=== PATIENT | male | born 1935 ===

== ENCOUNTER 2016-03-18 18:19 | Inpatient (IN) | payer OTHER ==
[~2016-03-18] VITALS: Ht 180.3 cm; Wt 102.5 kg
[2016-03-18 20:16] VITALS: BP 156/82
[2016-03-18] MEDS ORDERED: OMEP40CA5 PO (20:47)
[2016-03-18] MEDS ORDERED: OMEG1CAP6 PO (20:47)
[2016-03-18] MEDS ORDERED: TRAM50TA PO (20:47)
[2016-03-18] MEDS ORDERED: ATEN50TA PO (20:47)
[2016-03-18] MEDS ORDERED: LEVO25TA4 PO (20:47)
[2016-03-18] MEDS ORDERED: CARB15DR3 EACHEYE (20:47)
[2016-03-18] MEDS ORDERED: FINA5TAB4 PO (20:47)
[2016-03-18] MEDS ORDERED: PRAV20TA2 PO (20:47)
[2016-03-18] MEDS ORDERED: FURO20TA3 PO (20:47)
[2016-03-18] MEDS ORDERED: CHOL10003 PO (20:47)
[2016-03-18] MEDS ORDERED: TAMS0.4C2 PO (20:47)
[2016-03-18] MEDS ORDERED: FOSI10TA PO (20:47)
[2016-03-18] MEDS ORDERED: GABA-586 PO (20:47)
[2016-03-18] MEDS ORDERED: KETO15CR TP (20:47)
[2016-03-18] MEDS ORDERED: ACET500T68 PO (20:47)
[2016-03-18] MEDS ORDERED: ASPI-482 PO (20:52)
[2016-03-18] MEDS ORDERED: QUIN324C PO (20:52)
[2016-03-18 21:00] VITALS: BP 168/88
[2016-03-18] MEDS ORDERED: DILTIAZEM 125 MG in IV DEXTROSE 5% 100 ML IV PRN (21:00)
[2016-03-18 22:00] VITALS: BP 157/79
[2016-03-18] MEDS ORDERED: ACETAMINOPHEN 500 MG TABLET PO PRN (22:30)
[2016-03-18] MEDS ORDERED: TRAMADOL 50 MG TABLET. PO PRN (22:30)
[2016-03-18] MEDS ORDERED: POLYVINYL ALCOHOL 1.4% OPHTH SOLUTION 15ML BOTTLE. OU PRN (22:30)
--- NOTE | 2016-03-18 22:35 | EKG ---
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
[2016-03-18 23:02] VITALS: BP 164/69
[2016-03-19] VITALS (13 sets, daily range): BP systolic 139–162; BP diastolic 67–82
--- NOTE | 2016-03-19 02:00 | HP ---
ADMIT DATE: 03/18/2016 CHIEF COMPLAINT: Palpitations, chest pain, mental status change. HISTORY OF PRESENT ILLNESS: The patient is a pleasant middle-aged [facility] explained that he was having atrial fibrillation with RVR and he needed the cardiac workup at their facility. He has now been transferred to our facility for continued cardiac workup. PAST MEDICAL HISTORY: Colon cancer, colon resection, prostate cancer, skin cancer, anxiety. ALLERGIES: None. FAMILY HISTORY: Coronary artery disease. SOCIAL HISTORY: Does not drink, smoke or take drugs. He is a . MEDICATIONS: Reviewed, please refer to the MRAD. REVIEW OF SYSTEMS: GENERAL: No history of weight change, weakness or fevers. SKIN: No bruising, hair changes or rashes. EYES: No blurred, double or loss of vision. NOSE AND THROAT: No history of nosebleeds, hoarseness or sore throat. HEART: He complains of chest pain. LUNGS: Denies cough, hemoptysis, wheezing or shortness of breath. GASTROINTESTINAL: Denies changes in appetite, nausea, vomiting, diarrhea or constipation. GENITOURINARY: No history of frequency, urgency, hesitancy or nocturia. NEUROLOGIC: Denies history of numbness, tingling, tremor or weakness. PSYCHIATRIC: No history of panic, anxiety or depression. ENDOCRINE: No history of heat or cold intolerance, polyuria or polydipsia. EXTREMITIES: Denies muscle weakness, joint pain, pain on walking or stiffness. PHYSICAL EXAMINATION: VITAL SIGNS: Temperature afebrile, pulse 104 and irregular, respirations 22, blood pressure 144/67. GENERAL: He is alert, but confused. HEART: Strong S1, S2 with irregular rate of 104 beats per minute. LUNGS: Clear. ABDOMEN: Soft, positive bowel sounds. EXTREMITIES: 1+ edema. SKIN: No rashes. PSYCHIATRIC: He is anxious. VASCULAR: Good capillary refill. ENDOCRINE: No thyromegaly. LYMPHATICS: No cervical nodes. HEMATOPOIETIC: No bruising. LABORATORY DATA: Pending. ASSESSMENT AND PLAN: Atrial fibrillation with rapid ventricular response. The patient has been admitted. We are checking serial enzymes, serial EKGs, cardiac monitoring. IV Cardizem drip has been started. Suspect he might need anticoagulation. Await further cardiac input. I will resume his home meds. Consult Neurology regarding the mental status change. DEJON FINE DO DR: NANCY/pedro JOB#: [id number] / [id number]
--- NOTE | 2016-03-19 03:32 | EKG ---
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
[2016-03-19] MEDS: TAMSULOSIN 0.4 MG CAP.ER.24H. PO SCH (08:33)
[2016-03-19] MEDS: PANTOPRAZOLE 40 MG TABLET. PO SCH (08:33)
[2016-03-19] MEDS: FINASTERIDE 5 MG TABLET PO SCH (08:33)
[2016-03-19] MEDS: LEVOTHYROXINE 25 MCG TABLET. PO SCH (08:34)
[2016-03-19] MEDS: LISINOPRIL 5 MG TABLET. PO SCH (08:35)
[2016-03-19] MEDS: ASPIRIN ENTERIC COATED 81 MG TABLET.DR. PO SCH (08:35)
[2016-03-19] MEDS: GABAPENTIN 300 MG CAPSULE. PO SCH ×2 (08:35→21:37)
[2016-03-19] MEDS: FUROSEMIDE 20 MG TABLET PO SCH (08:36)
[2016-03-19] MEDS: ATENOLOL 50 MG TABLET PO SCH (08:36)
[2016-03-19] MEDS: KETOCONAZOLE 2% TOPICAL CREAM 15GM TUBE. TP SCH ×2 (08:39→21:37)
[2016-03-19] MEDS ORDERED: ENOXAPARIN 40 MG/0.4 ML DISP.SYRIN. SQ SCH (09:00)
--- NOTE | 2016-03-19 10:51 | PDOC2 ---
CARDIAC CONSULT DATE OF CONSULT Date of Consult DATE: 03/19/16 TIME: 10:43 REASON FOR CONSULT Reason for Consult: New onset AFIB with RVR REFERRING PHYSICIAN Referring Physician: Dr. Bustamante SOURCE Source: Chart review, Patient HISTORY OF PRESENT ILLNESS HISTORY OF PRESENT ILLNESS This is a 80 yo male who initially presented to the [facility] with. Upon evaluation, patient was noted to be in AFIB with RVR and was transferred for further evaluation. PAST MEDICAL HISTORY Cardiovascular: HTN GI: Other (colorectal CA) Psych: Anxiety, Depression Musculoskeletal: Osteoarthritis Renal/: Chronic renal insuff, Benign prostatic enlarg., Prostate Ca. Endocrine: Hypothyroidism PAST SURGICAL HISTORY Past Surgical History: Hernia Repair CURRENT MEDICATIONS CURRENT MEDICATIONS Current Medications Medications (Trade) Dose Ordered Sig/Peter Route PRN Reason Start Time Stop Time Status Last Admin Dose Admin Diltiazem HCl/ Dextrose (Cardizem) 125 ml @ 0 mls/hr CONT PRN IV SEE I/O RECORD 03/18/16 21:00 03/19/16 08:32 Enoxaparin Sodium (Lovenox 40mg Syringe) 40 mg Q24H SQ 03/19/16 09:00 03/19/16 09:42 Aspirin (Ecotrin) 81 mg DAILY PO 03/19/16 09:00 03/19/16 08:35 Atenolol (Tenormin) 50 mg DAILY PO 03/19/16 09:00 03/19/16 08:36 Finasteride (Proscar) 5 mg DAILY PO 03/19/16 09:00 03/19/16 08:33 Furosemide (Lasix) 20 mg DAILY PO 03/19/16 09:00 03/19/16 08:36 Gabapentin (Neurontin) 300 mg BID PO 03/19/16 09:00 03/19/16 08:35 Ketoconazole (Nizoral 2% Topical) 1 rhys BID TP 03/19/16 09:00 03/19/16 08:39 Levothyroxine Sodium (Synthroid) 15 mcg DAILY07 PO 03/19/16 07:00 03/19/16 08:34 Tamsulosin HCl (Flomax) 0.4 mg DAILY PO 03/19/16 09:00 03/19/16 08:33 Lisinopril (Prinivil) 5 mg DAILY PO 03/19/16 09:00 03/19/16 08:35 Pantoprazole Sodium (Protonix) 40 mg DAILYAC PO 03/19/16 07:30 03/19/16 08:33 ALLERGIES ALLERGIES: Coded Allergies: No Known Drug Allergies (Unverified , 03/18/16) ROS Review of System 14 point ROS conducted with pertinent positives noted above in HPI VITALS VITALS Vital Signs Date Time Temp Pulse Resp B/P Pulse Ox O2 Delivery O2 Flow Rate FiO2 03/19/16 08:36 87 157/69 03/19/16 07:30 98.5 18 Room Air 98.5 03/19/16 03:02 96 LABS Lab: Laboratory Tests Test 03/18/16 21:45 03/19/16 03:30 Troponin I Quantitative 0.059ng/mL (0.000-0.055) 0.056ng/mL (0.000-0.055) STEPHAN VAZQUEZ APRN Mar 19, 2016 10:51
--- NOTE | 2016-03-19 11:13 | PDOC ---
PROGRESS NOTES Chief Complaint Chief Complaint cc: palpitation A/P Afib with RVR SOB Hypothyroidism Plan IV Cardizem gtt, control HR to < 100 Heparin gtt per ACS protocol cardiology consult 3 sets of troponin echo TSH home medications reviwed, IV Lasix monitor electrolyte CBC/BMP Follow cardiology recommendation History of Present Illness History of Present Illness no fever no chest pain Vitals Vitals Vital Signs Date Time Temp Pulse Resp B/P Pulse Ox O2 Delivery O2 Flow Rate FiO2 03/19/16 08:36 87 157/69 03/19/16 07:40 Room Air 03/19/16 07:30 98.5 18 98.5 03/19/16 03:02 96 Physical Exam General: Alert, Oriented X3 Heart: Normal S1, Normal S2 Lungs: Clear Abdomen: Normal bowel sounds, Soft Extremities: Other (edema) Labs LABS Laboratory Tests Test 03/18/16 21:45 03/19/16 03:30 Troponin I Quantitative 0.059ng/mL (0.000-0.055) 0.056ng/mL (0.000-0.055) Thyroid Stimulating Hormone (TSH) 4.570uIU/mL (0.358-3.74) Comment Review of Relevant I have reviewed the following items juany (where applicable) has been applied. Labs Laboratory Tests Test 03/18/16 21:45 03/19/16 03:30 Troponin I Quantitative 0.059ng/mL (0.000-0.055) 0.056ng/mL (0.000-0.055) Thyroid Stimulating Hormone (TSH) 4.570uIU/mL (0.358-3.74) Laboratory Tests Test 03/18/16 21:45 03/19/16 03:30 Troponin I Quantitative 0.059ng/mL (0.000-0.055) 0.056ng/mL (0.000-0.055) Thyroid Stimulating Hormone (TSH) 4.570uIU/mL (0.358-3.74) Medications Current Medications Diltiazem HCl/ Dextrose (Cardizem) 125 ml @ 0 mls/hr CONT PRN IV SEE I/O RECORD Last administered on 03/19/16t 08:32; Start 03/18/16 at 21:00 Enoxaparin Sodium (Lovenox 40mg Syringe) 40 mg Q24H SQ Last administered on 09:42; Start 03/19/16 at 09:00 Acetaminophen (Tylenol) 500 mg PRN Q8HRS PRN PO PAIN; Start 03/18/16 at 22:30 Aspirin (Ecotrin) 81 mg DAILY PO Last administered on 03/19/16 08:35; Start at 09:00 Atenolol (Tenormin) 50 mg DAILY PO Last administered on 03/19/16 08:36; Start 03/19/16 at 09:00 Finasteride (Proscar) 5 mg DAILY PO Last administered on 03/19/16 08:33; Start 03/19/16 at 09:00 Furosemide (Lasix) 20 mg DAILY PO Last administered on 03/19/16 08:36; Start 03/19/16 at 09:00 Gabapentin (Neurontin) 300 mg BID PO Last administered on 03/19/16 08:35; Start 03/19/16 at 09:00 Ketoconazole (Nizoral 2% Topical) 1 mary BID TP Last administered on 03/19/16 08:39; Start 03/19/16 at 09:00 Levothyroxine Sodium (Synthroid) 15 mcg DAILY07 PO Last administered on 08:34; Start 03/19/16 at 07:00 Quinine Sulfate (Qualaquin) 324 mg HS PO ; Start 03/19/16 at 21:00 Tamsulosin HCl (Flomax) 0.4 mg DAILY PO Last administered on 03/19/16 08:33; Start 03/19/16 at 09:00 Tramadol HCl (Ultram) 50 mg PRN Q8HRS PRN PO PAIN; Start 03/18/16 at 22:30 Artificial Tears (Artificial Tears) 1 drop PRN QID PRN OU dry eyes; Start at 22:30 Lisinopril (Prinivil) 5 mg DAILY PO Last administered on 03/19/16 08:35; Start 03/19/16 at 09:00 Pantoprazole Sodium (Protonix) 40 mg DAILYAC PO Last administered on 03/19/16 08:33; Start 03/19/16 at 07:30 Atorvastatin Calcium (Lipitor) 5 mg QHS PO ; Start 03/19/16 at 21:00 Active Scripts Active Reported Quinine Sulfate 324 Mg Capsule 324 Mg PO Aspir 81 (Aspirin) 81 Mg Tablet.dr 1 Tab PO DAILY Atenolol 50 Mg Tablet 50 Mg PO DAILY Tramadol Hcl 50 Mg Tablet 50 Mg PO PRN Q8HRS PRN Tamsulosin Hcl 0.4 Mg Cap.er.24h 0.4 Mg PO DAILY Pravastatin Sodium 20 Mg Tablet 1 Tab PO QHS Omeprazole 40 Mg Capsule.dr 40 Mg PO DAILY Levothyroxine Sodium 25 Mcg Tablet 15 Mcg PO DAILYAC Ketoconazole 15 Gm Cream..g. 1 Mary TP BID Gabapentin 300 Mg Capsule 300 Mg PO BID Furosemide 20 Mg Tablet 20 Mg PO DAILY Fosinopril Sodium 10 Mg Tablet 5 Mg PO DAILY Fish Oil 1,000 Mg Capsule ([place]-3 Fatty Acids/Fish Oil) 1 Each Capsule 1 Each PO BID Finasteride 5 Mg Tablet 5 Mg PO DAILY Vitamin D3 (Cholecalciferol (Vitamin D3)) 1,000 Unit Tablet 3 Tab PO DAILY Refresh Optive Eye Drops (Carboxymethylcellulos/Glycerin) 15 Ml Drops 1 Drop EACHEYE PRN QID PRN Acetaminophen 500 Mg Tablet 2 Tab PO PRN Q8HRS PRN Vitals/I & O Vital Sign - Last 24 Hours 03/18/16 03/18/16 03/18/16 03/18/16 20:16 20:16 21:00 22:00 Temp 97.7 97.7 97.7 97.7 Pulse 112 112 Resp 20 20 B/P 156/82 156/82 168/88 157/79 Pulse Ox 96 96 O2 Delivery Room Air Room Air 03/18/16 03/18/16 03/19/16 03/19/16 23:02 23:52 00:00 01:00 Temp 98.2 98.2 Pulse 89 Resp 20 B/P 164/69 162/67 153/82 Pulse Ox 98 O2 Delivery Room Air Room Air 03/19/16 03/19/16 03/19/16 03/19/16 02:00 03:02 04:00 05:00 Temp 98.1 98.1 Pulse 97 Resp 18 B/P 158/74 143/74 160/75 155/77 Pulse Ox 96 O2 Delivery Room Air 03/19/16 03/19/16 03/19/16 03/19/16 06:00 07:30 07:40 08:35 Temp 98.5 98.5 Pulse 87 87 Resp 18 B/P 139/76 157/69 157/69 O2 Delivery Room Air Room Air 03/19/16 08:36 Pulse 87 B/P 157/69 HEIDI RIDLEY MD Mar 19, 2016 11:13
--- NOTE | 2016-03-19 13:30 | RAD ---
Clinical indications: Mental status changes. Comparison: None available. Technique: Noncontrast axial cross sectional scanning of the head was performed. PQRS Compliance Statement: One or more of the following individualized dose reduction techniques were utilized for this examination: 1. Automated exposure control 2. Adjustment of the mA and/or kV according to patient size 3. Use of iterative reconstruction technique Findings: No acute intracranial hemorrhage or midline shift or mass-effect or hydrocephalus or extra-axial fluid collection is seen. Mild periventricular white matter hypodensity is seen consistent with chronic small vessel ischemic disease in this age group. No skull fracture or pneumocephalus is seen. No opacification of the mastoid sinuses or the paranasal sinuses is seen. Impression: No acute intracranial hemorrhage is seen. Mild chronic small vessel ischemic disease of the white matter.
--- NOTE | 2016-03-19 14:04 | PDOC2 ---
NEUROLOGY CONSULT Date of Admission Date of Admission DATE: 03/19/16 TIME: 13:44 Reason for Consult Reason for Consult: IMPRESSION: Mental status changes, improved. Dizziness, resolved. New onset AFib with RVR. Chest pain Hx of SVT HTN Colon cancer Prostate cancer Skin cancer Alcohol drinking RECOMMENDATIONS/PLAN: HCT, performed, no acute findings. Lab: see orders. UDS, UA, Vit B12 pending. Cardiology consulted. Treat medical diseases. HISTORY OF THE PRESENT ILLNESS: 80-y-old male patient with above medical diseases and drinks alcohol from time to time. He had episode of SVT with HR > 200/min in the past. He drank a quarter of high concentration alcohol in the evening of 03/17, then he had symptoms of chest pain, palpitation, difficult breathing and mental status changes as visual and auditory hallucination, but his mental status retained to normal shortly. No acute cranial nerve, sensory of motor deficits. PAST MEDICAL HISTORY: Please see above. PAST SURGERY HISTORY: No major surgery recently. ALLERGY: Unknown MEDICATIONS: Refer to MAR FAMILY HISTORY: CAD SOCIAL HISTORY: Denies smoking and illicit drug use. He drinks a quarter of high concentration alcohol from time to time. REVIEW OF SYSTEMS: Constitutional: No malnutrition, weight loss, cachexia. Head: No recent traumatic brain or head injury. Skin: No edema, or rash. Ear: No infection, tinnitus. Eyes: No vision loss or color blindness. Nose: No bleeding or purulent discharges. Hearing: Significant hearing decrease. Neck: No recent injury. Cardiac: New onset AFib this time. HTN. Pulmonary: No COPD. GI: No GI ulcer, GI bleeding. Urinary/genital: Prostate cancer. Endocrinologic: No cousin face, craniofacial dysmorphism, polydactyly, goiter. Skeletomuscular: Skin cancer. Neurological: see HP. Psychiatric: Alcohol Otherwise, not [id number] review of systems. PHYSICAL EXAMINATION: General appearance is in subacute distress. HEENT: Normocephalic and nontraumatic. Eyes, nose, ears, and throat are unremarkable. Neck is supple. No lymphadenopathy. No crepitus. Cardiovascular: S1, S2, seemed irregular rate and rhythm. Pulmonary: Clear to auscultation bilaterally. Abdomen: Bowel sounds are positive. Abdomen is soft, nontender, and nondistended. Extremities: No rash, lesions, or edema. No restriction of range of motion NEUROLOGICAL EXAMINATION: Awake. Oriented to time, place and person. PERRL. EOMI. CN: no focal findings. Muscle tone: within normal. Muscle strength: 5- DTR: 2 Plantar reflex: Flexor response bilaterally Gait: not examined in bed. Sensory exam: no abnormal findings. No acute cerebellar signs elicited. F-T-N test not accurate. Current Medications Current Medications Current Medications Diltiazem HCl/ Dextrose (Cardizem) 125 ml @ 0 mls/hr CONT PRN IV SEE I/O RECORD Last administered on 03/19/16 08:32; Start 03/18/16 at 21:00 Enoxaparin Sodium (Lovenox 40mg Syringe) 40 mg Q24H SQ Last administered on 09:42; Start 03/19/16 at 09:00 Acetaminophen (Tylenol) 500 mg PRN Q8HRS PRN PO PAIN; Start 03/18/16 at 22:30 Aspirin (Ecotrin) 81 mg DAILY PO Last administered on 03/19/16 08:35; Start at 09:00 Atenolol (Tenormin) 50 mg DAILY PO Last administered on 03/19/16 08:36; Start 03/19/16 at 09:00 Finasteride (Proscar) 5 mg DAILY PO Last administered on 03/19/16 08:33; Start 03/19/16 at 09:00 Furosemide (Lasix) 20 mg DAILY PO Last administered on 03/19/16 08:36; Start 03/19/16 at 09:00 Gabapentin (Neurontin) 300 mg BID PO Last administered on 03/19/16 08:35; Start 03/19/16 at 09:00 Ketoconazole (Nizoral 2% Topical) 1 mary BID TP Last administered on 03/19/16 08:39; Start 03/19/16 at 09:00 Levothyroxine Sodium (Synthroid) 15 mcg DAILY07 PO Last administered on 08:34; Start 03/19/16 at 07:00 Quinine Sulfate (Qualaquin) 324 mg HS PO ; Start 03/19/16 at 21:00 Tamsulosin HCl (Flomax) 0.4 mg DAILY PO Last administered on 03/19/16 08:33; Start 03/19/16 at 09:00 Tramadol HCl (Ultram) 50 mg PRN Q8HRS PRN PO PAIN; Start 03/18/16 at 22:30 Artificial Tears (Artificial Tears) 1 drop PRN QID PRN OU dry eyes; Start at 22:30 Lisinopril (Prinivil) 5 mg DAILY PO Last administered on 03/19/16 08:35; Start 03/19/16 at 09:00 Pantoprazole Sodium (Protonix) 40 mg DAILYAC PO Last administered on 03/19/16 08:33; Start 03/19/16 at 07:30 Atorvastatin Calcium (Lipitor) 5 mg QHS PO ; Start 03/19/16 at 21:00 Thiamine HCl (Vitamin B-1) 100 mg DAILY PO ; Start 03/19/16 at 15:00; Status UNV Active Scripts Active Reported Quinine Sulfate 324 Mg Capsule 324 Mg PO Aspir 81 (Aspirin) 81 Mg Tablet.dr 1 Tab PO DAILY Atenolol 50 Mg Tablet 50 Mg PO DAILY Tramadol Hcl 50 Mg Tablet 50 Mg PO PRN Q8HRS PRN Tamsulosin Hcl 0.4 Mg Cap.er.24h 0.4 Mg PO DAILY Pravastatin Sodium 20 Mg Tablet 1 Tab PO QHS Omeprazole 40 Mg Capsule.dr 40 Mg PO DAILY Levothyroxine Sodium 25 Mcg Tablet 15 Mcg PO DAILYAC Ketoconazole 15 Gm Cream..g. 1 Mary TP BID Gabapentin 300 Mg Capsule 300 Mg PO BID Furosemide 20 Mg Tablet 20 Mg PO DAILY Fosinopril Sodium 10 Mg Tablet 5 Mg PO DAILY Fish Oil 1,000 Mg Capsule ([place]-3 Fatty Acids/Fish Oil) 1 Each Capsule 1 Each PO BID Finasteride 5 Mg Tablet 5 Mg PO DAILY Vitamin D3 (Cholecalciferol (Vitamin D3)) 1,000 Unit Tablet 3 Tab PO DAILY Refresh Optive Eye Drops (Carboxymethylcellulos/Glycerin) 15 Ml Drops 1 Drop EACHEYE PRN QID PRN Acetaminophen 500 Mg Tablet 2 Tab PO PRN Q8HRS PRN Allergies Allergies: Coded Allergies: No Known Drug Allergies (Unverified , 03/18/16) Vitals VITALS Vital Signs Date Time Temp Pulse Resp B/P Pulse Ox O2 Delivery O2 Flow Rate FiO2 03/19/16 11:00 98.0 98 20 140/71 Room Air 99.0 98.0 03/19/16 10:00 96 Labs Labs Laboratory Tests Test 03/18/16 21:45 03/19/16 03:30 Troponin I Quantitative 0.059ng/mL (0.000-0.055) 0.056ng/mL (0.000-0.055) Thyroid Stimulating Hormone (TSH) 4.570uIU/mL (0.358-3.74) Laboratory Tests Test 03/18/16 21:45 03/19/16 03:30 Troponin I Quantitative 0.059ng/mL (0.000-0.055) 0.056ng/mL (0.000-0.055) Thyroid Stimulating Hormone (TSH) 4.570uIU/mL (0.358-3.74) HUDSON DALE MD Mar 19, 2016 14:04
[2016-03-19] MEDS: DILTIAZEM HCL 120 MG CAP.ER.24H PO SCH (14:57)
[2016-03-19] MEDS: THIAMINE 100 MG TABLET. PO SCH (14:59)
--- NOTE | 2016-03-19 17:07 | CARD ---
APPROVED REPORT EXAM: Two-dimensional and M-mode echocardiogram with Doppler and color Doppler. Other Information Quality : Good Rhythm : Atrial Fibrillation INDICATION Atrial Fibrillation RVR RISK FACTORS Hypertension 2D DIMENSIONS RVDd2.4 (2.9-3.5cm)Left Atrium(2D)5.2 (1.6-4.0cm) IVSd1.2 (0.7-1.1cm)Aortic Root(2D)3.5 (2.0-3.7cm) LVDd5.4 (3.9-5.9cm)LVOT Diameter2.2 (1.8-2.4cm) PWd1.1 (0.7-1.1cm)LVDs3.7 (2.5-4.0cm) FS (%) 30.8 %SV82.4 ml LVEF(%)50.0 (>50%) Aortic Valve AoV Peak Enrique.127.6cm/sAoV VTI20.6cm AO Peak GR.6.5mmHgLVOT VTI 20.51cm AO Mean GR.3mmHg Mitral Valve MV E Nuflttyp075.0cm/sMV DECEL [id number] TDI Medial E' P. V7.72cm/sE/Medial E'14.8 Tricuspid Valve TR P. Uajvqgde186hw/sRAP [id number] TR Peak Gr.[id number] LEFT VENTRICLE The left ventricle is normal size. There is mild concentric left ventricular hypertrophy. The left ve ntricular systolic function is normal and the ejection fraction is within normal range. The Ejection Fraction is 50%. There is normal LV segmental wall motion. Unable to assess left ventricular diastoli c function due to atrial fibrillation. RIGHT VENTRICLE The right ventricle is normal size. There is normal right ventricular wall thickness. The right ventr icular systolic function is impaired ATRIA The left atrium size is normal. The right atrium size is normal. The interatrial septum is intact wit h no evidence for an atrial septal defect or patent foramen ovale as noted on 2-D or Doppler imaging. AORTIC VALVE The aortic valve is mildly sclerotic. Doppler and Color Flow revealed no significant aortic regurgita tion. There is no significant aortic valvular stenosis. MITRAL VALVE The mitral valve leaflets are thickened. There is no evidence of mitral valve prolapse. There is no m itral valve stenosis. Doppler and Color Flow revealed trace mitral regurgitation. TRICUSPID VALVE Doppler and Color Flow revealed trace tricuspid regurgitation. The pulmonary artery systolic pressure is estimated at 39 mmHg. There is mild pulmonary hypertension. PULMONIC VALVE The pulmonic valve is not well visualized. Doppler and Color Flow revealed no pulmonic valvular regur gitation. There is no pulmonic valvular stenosis. GREAT VESSELS The aortic root is normal in size. The ascending aorta is normal in size. The pulmonary artery is nor mal. The IVC is normal in size and collapses >50% with inspiration. PERICARDIAL EFFUSION There is a small pericardial effusion. Critical Notification Critical Value: No <Conclusion> Unable to assess left ventricular diastolic function due to atrial fibrillation. There is mild concentric left ventricular hypertrophy. The left ventricular systolic function is normal and the ejection fraction is within normal range. The Ejection Fraction is 50%. The right ventricular systolic function is impaired The left atrium size is normal. The right atrium size is normal. The aortic valve is mildly sclerotic. Doppler and Color Flow revealed trace mitral regurgitation. Doppler and Color Flow revealed trace tricuspid regurgitation. The pulmonary artery systolic pressure is estimated at 39 mmHg. There is mild pulmonary hypertension. The pulmonic valve is not well visualized. There is a small pericardial effusion.
[2016-03-19] MEDS ORDERED: HEPARIN for IV BOLUS 10,000 UNIT/10 ML VIAL. IV PRN (17:45)
[2016-03-19] MEDS ORDERED: ANTI-COAG MONITOR BY PHARMACY. MC PRN (18:00)
[2016-03-19] MEDS ORDERED: HEPARIN for IV BOLUS 10,000 UNIT/10 ML VIAL. IVP ONE (18:00)
[2016-03-19] MEDS: HEPARIN 25,000UTS/500ML PREMIX 500 ML IV PRN (18:47)
--- NOTE | 2016-03-19 19:07 | PDOC2 ---
CONSULT Date of Consult Date of Consult DATE: 03/19/16 TIME: 19:02 Reason for Consult Reason for Consult: A. nasreen with RVR History of Present Illness Reason for Visit: This patient is a 80-year-old gentleman with a history of hypertension. He denies any previous cardiac problems although he states that he has had some issues with supraventricular tachycardias. The patient is usually cared for at the level with [place]. He went to the emergency room at the [facility] and was found to be in atrial fibrillation with a rapid ventricular response following that the patient was transferred here for further care. After he arrived here he was initiated on IV Cardizem. At the time that I saw the patient he is in atrial fibrillation with a controlled ventricular response in the 80s. Patient denies any chest pains, denies any palpitations, no nausea no vomiting and no loss of consciousness. Past Medical History Cardiovascular: HTN, Other (SVT) GI: Other (colorectal CA) Psych: Anxiety, Depression Musculoskeletal: Osteoarthritis Renal/: Chronic renal insuff, Benign prostatic enlarg., Prostate Ca. Endocrine: Hypothyroidism Past Surgical History Past Surgical History: Hernia Repair Current Medications Current Medications Current Medications Diltiazem HCl/ Dextrose (Cardizem) 125 ml @ 0 mls/hr CONT PRN IV SEE I/O RECORD Last administered on 03/19/16 08:32; Start 03/18/16 at 21:00; Stop at 21:00 Enoxaparin Sodium (Lovenox 40mg Syringe) 40 mg Q24H SQ Last administered on 09:42; Start 03/19/16 at 09:00 Acetaminophen (Tylenol) 500 mg PRN Q8HRS PRN PO PAIN; Start 03/18/16 at 22:30 Aspirin (Ecotrin) 81 mg DAILY PO Last administered on 03/19/16 08:35; Start at 09:00 Atenolol (Tenormin) 50 mg DAILY PO Last administered on 03/19/16 08:36; Start 03/19/16 at 09:00 Finasteride (Proscar) 5 mg DAILY PO Last administered on 03/19/16 08:33; Start 03/19/16 at 09:00 Furosemide (Lasix) 20 mg DAILY PO Last administered on 03/19/16 08:36; Start 03/19/16 at 09:00 Gabapentin (Neurontin) 300 mg BID PO Last administered on 03/19/16 08:35; Start 03/19/16 at 09:00 Ketoconazole (Nizoral 2% Topical) 1 mary BID TP Last administered on 03/19/16 08:39; Start 03/19/16 at 09:00 Levothyroxine Sodium (Synthroid) 15 mcg DAILY07 PO Last administered on 08:34; Start 03/19/16 at 07:00 Quinine Sulfate (Qualaquin) 324 mg HS PO ; Start 03/19/16 at 21:00 Tamsulosin HCl (Flomax) 0.4 mg DAILY PO Last administered on 03/19/16 08:33; Start 03/19/16 at 09:00 Tramadol HCl (Ultram) 50 mg PRN Q8HRS PRN PO PAIN; Start 03/18/16 at 22:30 Artificial Tears (Artificial Tears) 1 drop PRN QID PRN OU dry eyes; Start at 22:30 Lisinopril (Prinivil) 5 mg DAILY PO Last administered on 03/19/16 08:35; Start 03/19/16 at 09:00 Pantoprazole Sodium (Protonix) 40 mg DAILYAC PO Last administered on 03/19/16 08:33; Start 03/19/16 at 07:30 Atorvastatin Calcium (Lipitor) 5 mg QHS PO ; Start 03/19/16 at 21:00 Thiamine HCl (Vitamin B-1) 100 mg DAILY PO Last administered on 03/19/16 14:59 ; Start 03/19/16 at 15:00 Diltiazem HCl 120 mg 120 mg DAILY PO Last administered on 03/19/16 14:57; Start 03/19/16 at 15:00 Heparin Sodium/ Dextrose 500 ml @ 0 mls/hr CONT PRN IV SEE I/O RECORD Last administered on 03/19/16 18:47; Start 03/19/16 at 17:45 Heparin Sodium (Porcine) 2,600 unit PRN Q6HRS PRN IV FOR UFH LEVEL LESS THAN 0.2; Start 03/19/16 at 17:45 Heparin Sodium (Porcine) 5,000 unit 1X ONCE IVP Last administered on 2/10/ 17at 18:41; Start 03/19/16 at 18:00; Stop 03/19/16 at 18:01; Status DC Info (Anti-Coagulation Monitoring By Pharmacy) 1 each PRN DAILY PRN MC SEE COMMENTS; Start 03/19/16 at 18:00 Active Scripts Active Reported Quinine Sulfate 324 Mg Capsule 324 Mg PO Aspir 81 (Aspirin) 81 Mg Tablet.dr 1 Tab PO DAILY Atenolol 50 Mg Tablet 50 Mg PO DAILY Tramadol Hcl 50 Mg Tablet 50 Mg PO PRN Q8HRS PRN Tamsulosin Hcl 0.4 Mg Cap.er.24h 0.4 Mg PO DAILY Pravastatin Sodium 20 Mg Tablet 1 Tab PO QHS Omeprazole 40 Mg Capsule.dr 40 Mg PO DAILY Levothyroxine Sodium 25 Mcg Tablet 15 Mcg PO DAILYAC Ketoconazole 15 Gm Cream..g. 1 Mary TP BID Gabapentin 300 Mg Capsule 300 Mg PO BID Furosemide 20 Mg Tablet 20 Mg PO DAILY Fosinopril Sodium 10 Mg Tablet 5 Mg PO DAILY Fish Oil 1,000 Mg Capsule ([place]-3 Fatty Acids/Fish Oil) 1 Each Capsule 1 Each PO BID Finasteride 5 Mg Tablet 5 Mg PO DAILY Vitamin D3 (Cholecalciferol (Vitamin D3)) 1,000 Unit Tablet 3 Tab PO DAILY Refresh Optive Eye Drops (Carboxymethylcellulos/Glycerin) 15 Ml Drops 1 Drop EACHEYE PRN QID PRN Acetaminophen 500 Mg Tablet 2 Tab PO PRN Q8HRS PRN Allergies Allergies: Coded Allergies: No Known Drug Allergies (Unverified , 03/18/16) Physical Exam Physical Exam The patient was not in acute distress at the time of the examination. HEENT pupils are reactive. Oral mucosa well-hydrated. Neck is supple no JVD. Lungs were clear. Heart irregularly irregular, S1-S2, no rubs no clicks. Abdomen is soft bowel sounds are present. Extremities 1-2+ edema. Vitals VITALS Vital Signs Date Time Temp Pulse Resp B/P Pulse Ox O2 Delivery O2 Flow Rate FiO2 03/19/16 15:00 98.0 98 18 144/71 98.0 03/19/16 11:00 Room Air 99.0 03/19/16 10:00 96 Labs Labs Laboratory Tests Test 03/18/16 21:45 03/19/16 03:30 Troponin I Quantitative 0.059ng/mL (0.000-0.055) 0.056ng/mL (0.000-0.055) Thyroid Stimulating Hormone (TSH) 4.570uIU/mL (0.358-3.74) Laboratory Tests Test 03/18/16 21:45 03/19/16 03:30 Troponin I Quantitative 0.059ng/mL (0.000-0.055) 0.056ng/mL (0.000-0.055) Thyroid Stimulating Hormone (TSH) 4.570uIU/mL (0.358-3.74) Assessment/Plan Assessment/Plan This patient comes in with atrial fibrillation with a rapid ventricular response that was controlled with IV Cardizem at the present time he has slowed down and he is having a rate in the 80s although at times he is having pauses. The IV Cardizem was stopped and he was started on by mouth Cardizem. I agree with this approach and will get an echocardiogram to evaluate the patient's present left ventricular function and chamber sizes. Thank you very much for asking me to participate in the care of this patient BREEZY TORRES MD Mar 19, 2016 19:07
[2016-03-19] MEDS: quiNINE 324 MG CAPSULE. PO SCH (21:37)
[2016-03-19] MEDS: ATORVASTATIN CALCIUM 10 MG TABLET. PO SCH (21:37)
[2016-03-20 03:35] VITALS: BP 141/68
[2016-03-20 06:24] LABS: CREATININE 0.9 mg/dL (0.7-1.3); GFR 81.6
[2016-03-20 07:00] VITALS: BP 160/80
[2016-03-20] MEDS: KETOCONAZOLE 2% TOPICAL CREAM 15GM TUBE. TP SCH ×2 (09:00→21:00)
[2016-03-20] MEDS: TAMSULOSIN 0.4 MG CAP.ER.24H. PO SCH (10:34)
[2016-03-20] MEDS: GABAPENTIN 300 MG CAPSULE. PO SCH ×2 (10:34→21:24)
[2016-03-20] MEDS: DILTIAZEM HCL 120 MG CAP.ER.24H PO SCH (10:35)
[2016-03-20] MEDS: THIAMINE 100 MG TABLET. PO SCH (10:35)
[2016-03-20] MEDS: FUROSEMIDE 20 MG TABLET PO SCH (10:35)
[2016-03-20] MEDS: LEVOTHYROXINE 25 MCG TABLET. PO SCH (10:36)
[2016-03-20] MEDS: ASPIRIN ENTERIC COATED 81 MG TABLET.DR. PO SCH (10:36)
[2016-03-20] MEDS: PANTOPRAZOLE 40 MG TABLET. PO SCH (10:38)
[2016-03-20] MEDS: LISINOPRIL 5 MG TABLET. PO SCH (10:38)
[2016-03-20] MEDS: FINASTERIDE 5 MG TABLET PO SCH (10:38)
[2016-03-20] MEDS: ATENOLOL 50 MG TABLET PO SCH (10:39)
[2016-03-20 11:00] VITALS: BP 158/82
--- NOTE | 2016-03-20 12:48 | PDOC ---
PROGRESS NOTES Chief Complaint Chief Complaint cc: palpitation A/P Afib with RVR SOB Hypothyroidism Plan IV Cardizem gtt, control HR to < 100 Heparin gtt per ACS protocol , Coumadin today stop atenlol cardiology following echo normal ef home medications reviwed, IV Lasix monitor electrolyte CBC/BMP Follow cardiology recommendation History of Present Illness History of Present Illness no fever no chest pain Vitals Vitals Vital Signs Date Time Temp Pulse Resp B/P Pulse Ox O2 Delivery O2 Flow Rate FiO2 03/20/16 11:00 97.9 93 18 158/82 94 Room Air 97.9 03/19/16 11:00 99.0 Physical Exam General: Alert, Oriented X3 Heart: Normal S1, Normal S2 Lungs: Clear Abdomen: Normal bowel sounds, Soft Extremities: Other (edema) Labs LABS Laboratory Tests Test 03/20/16 05:10 Heparin Anti-Xa Act, Unfractionated < 0.10IU/mL (0.30-0.70) Creatinine 0.9mg/dL (0.7-1.3) Estimated GFR (Cockcroft-Gault) 81.6 Comment Review of Relevant I have reviewed the following items juany (where applicable) has been applied. Labs Laboratory Tests Test 03/18/16 21:45 03/19/16 03:30 03/20/16 05:10 Troponin I Quantitative 0.059ng/mL (0.000-0.055) 0.056ng/mL (0.000-0.055) Vitamin B12 Level 466pg/mL (211-946) Thyroid Stimulating Hormone (TSH) 4.570uIU/mL (0.358-3.74) Heparin Anti-Xa Act, Unfractionated < 0.10IU/mL (0.30-0.70) Creatinine 0.9mg/dL (0.7-1.3) Estimated GFR (Cockcroft-Gault) 81.6 Laboratory Tests Test 03/20/16 05:10 Heparin Anti-Xa Act, Unfractionated < 0.10IU/mL (0.30-0.70) Creatinine 0.9mg/dL (0.7-1.3) Estimated GFR (Cockcroft-Gault) 81.6 Medications Current Medications Diltiazem HCl/ Dextrose (Cardizem) 125 ml @ 0 mls/hr CONT PRN IV SEE I/O RECORD Last administered on 03/19/16 08:32; Start 03/18/16 at 21:00; Stop at 21:00; Status DC Enoxaparin Sodium (Lovenox 40mg Syringe) 40 mg Q24H SQ Last administered on 09:42; Start 03/19/16 at 09:00; Stop 03/20/16 at 07:31; Status DC Acetaminophen (Tylenol) 500 mg PRN Q8HRS PRN PO PAIN; Start 03/18/16 at 22:30 Aspirin (Ecotrin) 81 mg DAILY PO Last administered on 03/20/16 10:36; Start at 09:00 Atenolol (Tenormin) 50 mg DAILY PO Last administered on 03/20/16 10:39; Start 03/19/16 at 09:00 Finasteride (Proscar) 5 mg DAILY PO Last administered on 03/20/16 10:38; Start 03/19/16 at 09:00 Furosemide (Lasix) 20 mg DAILY PO Last administered on 03/20/16 10:35; Start 03/19/16 at 09:00 Gabapentin (Neurontin) 300 mg BID PO Last administered on 03/20/16 10:34; Start 03/19/16 at 09:00 Ketoconazole (Nizoral 2% Topical) 1 mary BID TP Last administered on 03/19/16 21:37; Start 03/19/16 at 09:00 Levothyroxine Sodium (Synthroid) 15 mcg DAILY07 PO Last administered on 10:36; Start 03/19/16 at 07:00 Quinine Sulfate (Qualaquin) 324 mg HS PO Last administered on 03/19/16 21:37; Start 03/19/16 at 21:00 Tamsulosin HCl (Flomax) 0.4 mg DAILY PO Last administered on 03/20/16 10:34; Start 03/19/16 at 09:00 Tramadol HCl (Ultram) 50 mg PRN Q8HRS PRN PO PAIN; Start 03/18/16 at 22:30 Artificial Tears (Artificial Tears) 1 drop PRN QID PRN OU dry eyes; Start at 22:30 Lisinopril (Prinivil) 5 mg DAILY PO Last administered on 03/20/16 10:38; Start 03/19/16 at 09:00 Pantoprazole Sodium (Protonix) 40 mg DAILYAC PO Last administered on 03/20/16 10:38; Start 03/19/16 at 07:30 Atorvastatin Calcium (Lipitor) 5 mg QHS PO Last administered on 03/19/16 21:37 ; Start 03/19/16 at 21:00 Thiamine HCl (Vitamin B-1) 100 mg DAILY PO Last administered on 03/20/16 10:35 ; Start 03/19/16 at 15:00 Diltiazem HCl 120 mg 120 mg DAILY PO Last administered on 03/20/16 10:35; Start 03/19/16 at 15:00 Heparin Sodium/ Dextrose 500 ml @ 0 mls/hr CONT PRN IV SEE I/O RECORD Last administered on 03/19/16 18:47; Start 03/19/16 at 17:45 Heparin Sodium (Porcine) 2,600 unit PRN Q6HRS PRN IV FOR UFH LEVEL LESS THAN 0.2; Start 03/19/16 at 17:45 Heparin Sodium (Porcine) 5,000 unit 1X ONCE IVP Last administered on 18:41; Start 03/19/16 at 18:00; Stop 03/19/16 at 18:01; Status DC Info (Anti-Coagulation Monitoring By Pharmacy) 1 each PRN DAILY PRN MC SEE COMMENTS; Start 03/19/16 at 18:00 Active Scripts Active Reported Quinine Sulfate 324 Mg Capsule 324 Mg PO Aspir 81 (Aspirin) 81 Mg Tablet.dr 1 Tab PO DAILY Atenolol 50 Mg Tablet 50 Mg PO DAILY Tramadol Hcl 50 Mg Tablet 50 Mg PO PRN Q8HRS PRN Tamsulosin Hcl 0.4 Mg Cap.er.24h 0.4 Mg PO DAILY Pravastatin Sodium 20 Mg Tablet 1 Tab PO QHS Omeprazole 40 Mg Capsule.dr 40 Mg PO DAILY Levothyroxine Sodium 25 Mcg Tablet 15 Mcg PO DAILYAC Ketoconazole 15 Gm Cream..g. 1 Mary TP BID Gabapentin 300 Mg Capsule 300 Mg PO BID Furosemide 20 Mg Tablet 20 Mg PO DAILY Fosinopril Sodium 10 Mg Tablet 5 Mg PO DAILY Fish Oil 1,000 Mg Capsule ([place]-3 Fatty Acids/Fish Oil) 1 Each Capsule 1 Each PO BID Finasteride 5 Mg Tablet 5 Mg PO DAILY Vitamin D3 (Cholecalciferol (Vitamin D3)) 1,000 Unit Tablet 3 Tab PO DAILY Refresh Optive Eye Drops (Carboxymethylcellulos/Glycerin) 15 Ml Drops 1 Drop EACHEYE PRN QID PRN Acetaminophen 500 Mg Tablet 2 Tab PO PRN Q8HRS PRN Vitals/I & O Vital Sign - Last 24 Hours 03/19/16 03/19/16 03/19/16 03/19/16 14:57 15:00 19:35 20:00 Temp 98.0 97.6 98.0 97.6 Pulse 68 98 89 Resp 18 21 B/P 107/53 144/71 139/75 Pulse Ox 96 O2 Delivery Room Air Room Air 03/19/16 03/20/16 03/20/16 03/20/16 23:20 03:35 07:00 10:35 Temp 98.2 98.3 98.0 98.2 98.3 98.0 Pulse 72 63 91 89 Resp 22 16 18 B/P 147/71 141/68 160/80 158/82 Pulse Ox 97 97 96 O2 Delivery Room Air Room Air Room Air 03/20/16 03/20/16 03/20/16 10:38 10:39 11:00 Temp 97.9 97.9 Pulse 92 92 93 Resp 18 B/P 158/82 158/82 158/82 Pulse Ox 94 O2 Delivery Room Air Intake and Output 03/19/16 03/19/16 03/20/16 15:00 23:00 07:00 Intake Total 240 ml 240 ml Balance 240 ml 240 ml HEIDI RIDLEY MD Mar 20, 2016 12:48
--- NOTE | 2016-03-20 14:01 | PDOC ---
PROGRESS NOTES Subjective Subjective Patient is in atrial fibrillation with a controlled ventricular response. He is feeling much better. No dyspnea or chest pains at this time. The echocardiogram was done and it showed: Unable to assess left ventricular diastolic function due to atrial fibrillation. There is mild concentric left ventricular hypertrophy. The left ventricular systolic function is normal and the ejection fraction is within normal range. The Ejection Fraction is 50%. The right ventricular systolic function is impaired The left atrium size is normal. The right atrium size is normal. The aortic valve is mildly sclerotic. Doppler and Color Flow revealed trace mitral regurgitation. Doppler and Color Flow revealed trace tricuspid regurgitation. The pulmonary artery systolic pressure is estimated at 39 mmHg. There is mild pulmonary hypertension. The pulmonic valve is not well visualized. There is a small pericardial effusion. Objective Objective Vital Signs Date Time Temp Pulse Resp B/P Pulse Ox O2 Delivery O2 Flow Rate FiO2 03/20/16 11:00 97.9 93 18 158/82 94 Room Air 97.9 03/19/16 11:00 99.0 Intake and Output 03/20/16 07:00 Intake Total 480 ml Balance 480 ml Intake Oral 480 ml # Voids 7 Physical Exam Physical Exam No significant changes in cardiac exam Assessment Assessment Patient appears to be doing better at this time. Continue with IV heparin. Start warfarin 10 mg by mouth today Comment Review of Relevant I have reviewed the following items juany (where applicable) has been applied. Labs Laboratory Tests Test 03/18/16 21:45 03/19/16 03:30 03/20/16 05:10 Troponin I Quantitative 0.059ng/mL (0.000-0.055) 0.056ng/mL (0.000-0.055) Vitamin B12 Level 466pg/mL (211-946) Thyroid Stimulating Hormone (TSH) 4.570uIU/mL (0.358-3.74) Heparin Anti-Xa Act, Unfractionated < 0.10IU/mL (0.30-0.70) Creatinine 0.9mg/dL (0.7-1.3) Estimated GFR (Cockcroft-Gault) 81.6 Laboratory Tests Test 03/20/16 05:10 Heparin Anti-Xa Act, Unfractionated < 0.10IU/mL (0.30-0.70) Creatinine 0.9mg/dL (0.7-1.3) Estimated GFR (Cockcroft-Gault) 81.6 Medications Current Medications Diltiazem HCl/ Dextrose (Cardizem) 125 ml @ 0 mls/hr CONT PRN IV SEE I/O RECORD Last administered on 03/19/16 08:32; Start 03/18/16 at 21:00; Stop at 21:00; Status DC Enoxaparin Sodium (Lovenox 40mg Syringe) 40 mg Q24H SQ Last administered on 09:42; Start 03/19/16 at 09:00; Stop 03/20/16 at 07:31; Status DC Acetaminophen (Tylenol) 500 mg PRN Q8HRS PRN PO PAIN; Start 03/18/16 at 22:30 Aspirin (Ecotrin) 81 mg DAILY PO Last administered on 03/20/16 10:36; Start at 09:00 Atenolol (Tenormin) 50 mg DAILY PO Last administered on 03/20/16 10:39; Start 03/19/16 at 09:00; Stop 03/20/16 at 13:23; Status DC Finasteride (Proscar) 5 mg DAILY PO Last administered on 03/20/16 10:38; Start 03/19/16 at 09:00 Furosemide (Lasix) 20 mg DAILY PO Last administered on 03/20/16 10:35; Start 03/19/16 at 09:00 Gabapentin (Neurontin) 300 mg BID PO Last administered on 03/20/16 10:34; Start 03/19/16 at 09:00 Ketoconazole (Nizoral 2% Topical) 1 mary BID TP Last administered on 03/19/16 21:37; Start 03/19/16 at 09:00 Levothyroxine Sodium (Synthroid) 15 mcg DAILY07 PO Last administered on 10:36; Start 03/19/16 at 07:00 Quinine Sulfate (Qualaquin) 324 mg HS PO Last administered on 03/19/16 21:37; Start 03/19/16 at 21:00 Tamsulosin HCl (Flomax) 0.4 mg DAILY PO Last administered on 03/20/16 10:34; Start 03/19/16 at 09:00 Tramadol HCl (Ultram) 50 mg PRN Q8HRS PRN PO PAIN; Start 03/18/16 at 22:30 Artificial Tears (Artificial Tears) 1 drop PRN QID PRN OU dry eyes; Start at 22:30 Lisinopril (Prinivil) 5 mg DAILY PO Last administered on 03/20/16 10:38; Start 03/19/16 at 09:00 Pantoprazole Sodium (Protonix) 40 mg DAILYAC PO Last administered on 03/20/16 10:38; Start 03/19/16 at 07:30 Atorvastatin Calcium (Lipitor) 5 mg QHS PO Last administered on 03/19/16 21:37 ; Start 03/19/16 at 21:00 Thiamine HCl (Vitamin B-1) 100 mg DAILY PO Last administered on 03/20/16 10:35 ; Start 03/19/16 at 15:00 Diltiazem HCl 120 mg 120 mg DAILY PO Last administered on 03/20/16 10:35; Start 03/19/16 at 15:00 Heparin Sodium/ Dextrose 500 ml @ 0 mls/hr CONT PRN IV SEE I/O RECORD Last administered on 03/19/16 18:47; Start 03/19/16 at 17:45 Heparin Sodium (Porcine) 2,600 unit PRN Q6HRS PRN IV FOR UFH LEVEL LESS THAN 0.2; Start 03/19/16 at 17:45 Heparin Sodium (Porcine) 5,000 unit 1X ONCE IVP Last administered on 18:41; Start 03/19/16 at 18:00; Stop 03/19/16 at 18:01; Status DC Info (Anti-Coagulation Monitoring By Pharmacy) 1 each PRN DAILY PRN SEE COMMENTS; Start 03/19/16 at 18:00 Active Scripts Active Reported Quinine Sulfate 324 Mg Capsule 324 Mg PO Aspir 81 (Aspirin) 81 Mg Tablet.dr 1 Tab PO DAILY Atenolol 50 Mg Tablet 50 Mg PO DAILY Tramadol Hcl 50 Mg Tablet 50 Mg PO PRN Q8HRS PRN Tamsulosin Hcl 0.4 Mg Cap.er.24h 0.4 Mg PO DAILY Pravastatin Sodium 20 Mg Tablet 1 Tab PO QHS Omeprazole 40 Mg Capsule.dr 40 Mg PO DAILY Levothyroxine Sodium 25 Mcg Tablet 15 Mcg PO DAILYAC Ketoconazole 15 Gm Cream..g. 1 Mary TP BID Gabapentin 300 Mg Capsule 300 Mg PO BID Furosemide 20 Mg Tablet 20 Mg PO DAILY Fosinopril Sodium 10 Mg Tablet 5 Mg PO DAILY Fish Oil 1,000 Mg Capsule ([place]-3 Fatty Acids/Fish Oil) 1 Each Capsule 1 Each PO BID Finasteride 5 Mg Tablet 5 Mg PO DAILY Vitamin D3 (Cholecalciferol (Vitamin D3)) 1,000 Unit Tablet 3 Tab PO DAILY Refresh Optive Eye Drops (Carboxymethylcellulos/Glycerin) 15 Ml Drops 1 Drop EACHEYE PRN QID PRN Acetaminophen 500 Mg Tablet 2 Tab PO PRN Q8HRS PRN Vitals/I & O Vital Sign - Last 24 Hours 03/19/16 03/19/16 03/19/16 03/19/16 14:57 15:00 19:35 20:00 Temp 98.0 97.6 98.0 97.6 Pulse 68 98 89 Resp 18 21 B/P 107/53 144/71 139/75 Pulse Ox 96 O2 Delivery Room Air Room Air 03/19/16 03/20/16 03/20/16 03/20/16 23:20 03:35 07:00 10:35 Temp 98.2 98.3 98.0 98.2 98.3 98.0 Pulse 72 63 91 89 Resp 22 16 18 B/P 147/71 141/68 160/80 158/82 Pulse Ox 97 97 96 O2 Delivery Room Air Room Air Room Air 03/20/16 03/20/16 03/20/16 10:38 10:39 11:00 Temp 97.9 97.9 Pulse 92 92 93 Resp 18 B/P 158/82 158/82 158/82 Pulse Ox 94 O2 Delivery Room Air Intake and Output 03/19/16 03/19/16 03/20/16 15:00 23:00 07:00 Intake Total 240 ml 240 ml Balance 240 ml 240 ml BREEZY TORRES MD Mar 20, 2016 14:01
[2016-03-20 15:00] VITALS: BP 119/71
[2016-03-20 18:03] LABS: INR 1.1 (0.8-1.1); PROTHROMBIN TIME PATIENT 13.9 SEC (11.7-14.0)
--- NOTE | 2016-03-20 18:57 | PDOC ---
PROGRESS NOTES Assessment Metabolic encephalopathy, alcohol intoxication New onset AFib with RVR. Chest pain Hx of SVT HTN Colon cancer Prostate cancer Skin cancer Plan Continue present supportive care Note that heparin has been started Subjective No complaints, he denies pain Objective Vital Signs Date Time Temp Pulse Resp B/P Pulse Ox O2 Delivery O2 Flow Rate FiO2 03/20/16 15:00 98.1 60 18 119/71 93 Room Air 98.1 03/19/16 11:00 99.0 Intake and Output 03/20/16 07:00 Intake Total 480 ml Balance 480 ml Intake Oral 480 ml # Voids 7 PHYSICAL EXAM Alert. Oriented to time (one day off on the date), place and person. PERRL. EOMI. CN: no focal findings. Muscle tone: normal. Muscle strength: 5/5 DTR: 2+ Plantar reflex: Flexor Gait: not examined in bed. Sensory exam: no abnormal findings. No cerebellar signs elicited. Review of Relevant I have reviewed the following items juany (where applicable) has been applied. Labs Laboratory Tests Test 03/18/16 21:45 03/19/16 03:30 03/20/16 05:10 03/20/16 16:50 Troponin I Quantitative 0.059ng/mL (0.000-0.055) 0.056ng/mL (0.000-0.055) Vitamin B12 Level 466pg/mL (211-946) Thyroid Stimulating Hormone (TSH) 4.570uIU/mL (0.358-3.74) Heparin Anti-Xa Act, Unfractionated < 0.10IU/mL (0.30-0.70) Creatinine 0.9mg/dL (0.7-1.3) Estimated GFR (Cockcroft-Gault) 81.6 Prothrombin Time 13.9SEC (11.7-14.0) Prothromb Time International Ratio 1.1 (0.8-1.1) Laboratory Tests Test 03/20/16 05:10 03/20/16 16:50 Heparin Anti-Xa Act, Unfractionated < 0.10IU/mL (0.30-0.70) Creatinine 0.9mg/dL (0.7-1.3) Estimated GFR (Cockcroft-Gault) 81.6 Prothrombin Time 13.9SEC (11.7-14.0) Prothromb Time International Ratio 1.1 (0.8-1.1) Medications Current Medications Diltiazem HCl/ Dextrose (Cardizem) 125 ml @ 0 mls/hr CONT PRN IV SEE I/O RECORD Last administered on 03/19/16 08:32; Start 03/18/16 at 21:00; Stop at 21:00; Status DC Enoxaparin Sodium (Lovenox 40mg Syringe) 40 mg Q24H SQ Last administered on 09:42; Start 03/19/16 at 09:00; Stop 03/20/16 at 07:31; Status DC Acetaminophen (Tylenol) 500 mg PRN Q8HRS PRN PO PAIN; Start 03/18/16 at 22:30 Aspirin (Ecotrin) 81 mg DAILY PO Last administered on 03/20/16 10:36; Start at 09:00 Atenolol (Tenormin) 50 mg DAILY PO Last administered on 03/20/16 10:39; Start 03/19/16 at 09:00; Stop 03/20/16 at 13:23; Status DC Finasteride (Proscar) 5 mg DAILY PO Last administered on 03/20/16 10:38; Start 03/19/16 at 09:00 Furosemide (Lasix) 20 mg DAILY PO Last administered on 03/20/16 10:35; Start 03/19/16 at 09:00 Gabapentin (Neurontin) 300 mg BID PO Last administered on 03/20/16 10:34; Start 03/19/16 at 09:00 Ketoconazole (Nizoral 2% Topical) 1 mary BID TP Last administered on 03/19/16 21:37; Start 03/19/16 at 09:00 Levothyroxine Sodium (Synthroid) 15 mcg DAILY07 PO Last administered on 10:36; Start 03/19/16 at 07:00 Quinine Sulfate (Qualaquin) 324 mg HS PO Last administered on 03/19/16 21:37; Start 03/19/16 at 21:00 Tamsulosin HCl (Flomax) 0.4 mg DAILY PO Last administered on 03/20/16 10:34; Start 03/19/16 at 09:00 Tramadol HCl (Ultram) 50 mg PRN Q8HRS PRN PO PAIN; Start 03/18/16 at 22:30 Artificial Tears (Artificial Tears) 1 drop PRN QID PRN OU dry eyes; Start at 22:30 Lisinopril (Prinivil) 5 mg DAILY PO Last administered on 03/20/16 10:38; Start 03/19/16 at 09:00 Pantoprazole Sodium (Protonix) 40 mg DAILYAC PO Last administered on 03/20/16 10:38; Start 03/19/16 at 07:30 Atorvastatin Calcium (Lipitor) 5 mg QHS PO Last administered on 03/19/16 21:37 ; Start 03/19/16 at 21:00 Thiamine HCl (Vitamin B-1) 100 mg DAILY PO Last administered on 03/20/16 10:35 ; Start 03/19/16 at 15:00 Diltiazem HCl 120 mg 120 mg DAILY PO Last administered on 03/20/16 10:35; Start 03/19/16 at 15:00 Heparin Sodium/ Dextrose 500 ml @ 0 mls/hr CONT PRN IV SEE I/O RECORD Last administered on 03/19/16 18:47; Start 03/19/16 at 17:45 Heparin Sodium (Porcine) 2,600 unit PRN Q6HRS PRN IV FOR UFH LEVEL LESS THAN 0.2 Last administered on 03/20/16 16:56; Start 03/19/16 at 17:45 Heparin Sodium (Porcine) 5,000 unit 1X ONCE IVP Last administered on 18:41; Start 03/19/16 at 18:00; Stop 03/19/16 at 18:01; Status DC Info (Anti-Coagulation Monitoring By Pharmacy) 1 each PRN DAILY PRN MC SEE COMMENTS; Start 03/19/16 at 18:00 Warfarin Sodium (Coumadin) 10 mg DAILY16 PO ; Start 03/20/16 at 18:30 Warfarin Sodium (Coumadin Per Physician) 1 each PRN DAILY PRN MC SEE COMMENTS; Start 03/20/16 at 18:30 Active Scripts Active Reported Quinine Sulfate 324 Mg Capsule 324 Mg PO Aspir 81 (Aspirin) 81 Mg Tablet.dr 1 Tab PO DAILY Atenolol 50 Mg Tablet 50 Mg PO DAILY Tramadol Hcl 50 Mg Tablet 50 Mg PO PRN Q8HRS PRN Tamsulosin Hcl 0.4 Mg Cap.er.24h 0.4 Mg PO DAILY Pravastatin Sodium 20 Mg Tablet 1 Tab PO QHS Omeprazole 40 Mg Capsule.dr 40 Mg PO DAILY Levothyroxine Sodium 25 Mcg Tablet 15 Mcg PO DAILYAC Ketoconazole 15 Gm Cream..g. 1 Mary TP BID Gabapentin 300 Mg Capsule 300 Mg PO BID Furosemide 20 Mg Tablet 20 Mg PO DAILY Fosinopril Sodium 10 Mg Tablet 5 Mg PO DAILY Fish Oil 1,000 Mg Capsule ([place]-3 Fatty Acids/Fish Oil) 1 Each Capsule 1 Each PO BID Finasteride 5 Mg Tablet 5 Mg PO DAILY Vitamin D3 (Cholecalciferol (Vitamin D3)) 1,000 Unit Tablet 3 Tab PO DAILY Refresh Optive Eye Drops (Carboxymethylcellulos/Glycerin) 15 Ml Drops 1 Drop EACHEYE PRN QID PRN Acetaminophen 500 Mg Tablet 2 Tab PO PRN Q8HRS PRN Vitals/I & O Vital Sign - Last 24 Hours 03/19/16 03/19/16 03/19/16 03/20/16 19:35 20:00 23:20 03:35 Temp 97.6 98.2 98.3 97.6 98.2 98.3 Pulse 89 72 63 Resp 21 22 16 B/P 139/75 147/71 141/68 Pulse Ox 96 97 97 O2 Delivery Room Air Room Air Room Air Room Air 03/20/16 03/20/16 03/20/16 03/20/16 07:00 08:00 10:35 10:38 Temp 98.0 98.0 Pulse 91 89 92 Resp 18 B/P 160/80 158/82 158/82 Pulse Ox 96 O2 Delivery Room Air Room Air 03/20/16 03/20/16 03/20/16 10:39 11:00 15:00 Temp 97.9 98.1 97.9 98.1 Pulse 92 93 60 Resp 18 18 B/P 158/82 158/82 119/71 Pulse Ox 94 93 O2 Delivery Room Air Room Air Intake and Output 03/19/16 03/19/16 03/20/16 15:00 23:00 07:00 Intake Total 240 ml 240 ml Balance 240 ml 240 ml DOMINICK HANNAH MD Mar 20, 2016 18:57
[2016-03-20 19:23] VITALS: BP 128/60
[2016-03-20] MEDS: HEPARIN 25,000UTS/500ML PREMIX 500 ML IV PRN (21:23)
[2016-03-20] MEDS: WARFARIN 10 MG TABLET. PO SCH (21:24)
[2016-03-20] MEDS: quiNINE 324 MG CAPSULE. PO SCH (21:24)
[2016-03-20] MEDS: ATORVASTATIN CALCIUM 10 MG TABLET. PO SCH (21:24)
[2016-03-20 23:27] VITALS: BP 140/72
[2016-03-21 02:04] VITALS: BP 129/74
[2016-03-21] MEDS: LEVOTHYROXINE 25 MCG TABLET. PO SCH (06:22)
[2016-03-21 07:59] LABS: INR 1.1 (0.8-1.1); PROTHROMBIN TIME PATIENT 13.8 SEC (11.7-14.0)
[2016-03-21] MEDS: KETOCONAZOLE 2% TOPICAL CREAM 15GM TUBE. TP SCH ×2 (09:00→20:58)
[2016-03-21] MEDS: TAMSULOSIN 0.4 MG CAP.ER.24H. PO SCH (10:44)
[2016-03-21] MEDS: FINASTERIDE 5 MG TABLET PO SCH (10:44)
[2016-03-21] MEDS: THIAMINE 100 MG TABLET. PO SCH (10:44)
[2016-03-21] MEDS: ASPIRIN ENTERIC COATED 81 MG TABLET.DR. PO SCH (10:46)
[2016-03-21] MEDS: GABAPENTIN 300 MG CAPSULE. PO SCH ×2 (10:46→20:58)
[2016-03-21] MEDS: FUROSEMIDE 20 MG TABLET PO SCH (10:46)
[2016-03-21] MEDS: LISINOPRIL 5 MG TABLET. PO SCH (10:46)
[2016-03-21] MEDS: PANTOPRAZOLE 40 MG TABLET. PO SCH (10:46)
[2016-03-21] MEDS: DILTIAZEM HCL 120 MG CAP.ER.24H PO SCH (10:47)
[2016-03-21 11:00] VITALS: BP 147/76
--- NOTE | 2016-03-21 11:47 | PDOC ---
PROGRESS NOTES Chief Complaint Chief Complaint cc: palpitation A/P Afib with RVR SOB Hypothyroidism Plan IV Cardizem gtt, control HR to < 100 Heparin gtt per [facility] protocol , Coumadin , inr not therapeutic stop Atenol cardiology following echo normal ef home medications reviwed, IV Lasix monitor electrolyte CBC/BMP Follow cardiology recommendation History of Present Illness History of Present Illness no fever no chest pain Vitals Vitals Vital Signs Date Time Temp Pulse Resp B/P Pulse Ox O2 Delivery O2 Flow Rate FiO2 03/21/16 10:47 76 144/84 03/21/16 02:04 98.4 16 98 Room Air 98.4 Physical Exam General: Alert, Oriented X3 Heart: Normal S1, Normal S2 Lungs: Clear Abdomen: Normal bowel sounds, Soft Extremities: Other (edema) Labs LABS Laboratory Tests Test 03/20/16 16:50 03/21/16 05:00 Prothrombin Time 13.9SEC (11.7-14.0) 13.8SEC (11.7-14.0) Prothromb Time International Ratio 1.1 (0.8-1.1) 1.1 (0.8-1.1) Heparin Anti-Xa Act, Unfractionated 0.15IU/mL (0.30-0.70) Comment Review of Relevant I have reviewed the following items juany (where applicable) has been applied. Labs Laboratory Tests Test 03/20/16 05:10 03/20/16 16:50 03/21/16 05:00 Heparin Anti-Xa Act, Unfractionated < 0.10IU/mL (0.30-0.70) 0.15IU/mL (0.30-0.70) Creatinine 0.9mg/dL (0.7-1.3) Estimated GFR (Cockcroft-Gault) 81.6 Prothrombin Time 13.9SEC (11.7-14.0) 13.8SEC (11.7-14.0) Prothromb Time International Ratio 1.1 (0.8-1.1) 1.1 (0.8-1.1) Laboratory Tests Test 03/20/16 16:50 03/21/16 05:00 Prothrombin Time 13.9SEC (11.7-14.0) 13.8SEC (11.7-14.0) Prothromb Time International Ratio 1.1 (0.8-1.1) 1.1 (0.8-1.1) Heparin Anti-Xa Act, Unfractionated 0.15IU/mL (0.30-0.70) Medications Current Medications Diltiazem HCl/ Dextrose (Cardizem) 125 ml @ 0 mls/hr CONT PRN IV SEE I/O RECORD Last administered on 03/19/16 08:32; Start 03/18/16 at 21:00; Stop at 21:00; Status DC Enoxaparin Sodium (Lovenox 40mg Syringe) 40 mg Q24H SQ Last administered on 09:42; Start 03/19/16 at 09:00; Stop 03/20/16 at 07:31; Status DC Acetaminophen (Tylenol) 500 mg PRN Q8HRS PRN PO PAIN; Start 03/18/16 at 22:30 Aspirin (Ecotrin) 81 mg DAILY PO Last administered on 03/21/16 10:46; Start at 09:00 Atenolol (Tenormin) 50 mg DAILY PO Last administered on 03/20/16 10:39; Start 03/19/16 at 09:00; Stop 03/20/16 at 13:23; Status DC Finasteride (Proscar) 5 mg DAILY PO Last administered on 03/21/16 10:44; Start 03/19/16 at 09:00 Furosemide (Lasix) 20 mg DAILY PO Last administered on 03/21/16 10:46; Start 03/19/16 at 09:00 Gabapentin (Neurontin) 300 mg BID PO Last administered on 03/21/16 10:46; Start 03/19/16 at 09:00 Ketoconazole (Nizoral 2% Topical) 1 mary BID TP Last administered on 03/19/16 21:37; Start 03/19/16 at 09:00 Levothyroxine Sodium (Synthroid) 15 mcg DAILY07 PO Last administered on 06:22; Start 03/19/16 at 07:00 Quinine Sulfate (Qualaquin) 324 mg HS PO Last administered on 03/20/16 21:24; Start 03/19/16 at 21:00 Tamsulosin HCl (Flomax) 0.4 mg DAILY PO Last administered on 03/21/16 10:44; Start 03/19/16 at 09:00 Tramadol HCl (Ultram) 50 mg PRN Q8HRS PRN PO PAIN; Start 03/18/16 at 22:30 Artificial Tears (Artificial Tears) 1 drop PRN QID PRN OU dry eyes; Start at 22:30 Lisinopril (Prinivil) 5 mg DAILY PO Last administered on 03/21/16 10:46; Start 03/19/16 at 09:00 Pantoprazole Sodium (Protonix) 40 mg DAILYAC PO Last administered on 03/21/16 10:46; Start 03/19/16 at 07:30 Atorvastatin Calcium (Lipitor) 5 mg QHS PO Last administered on 03/20/16 21:24 ; Start 03/19/16 at 21:00 Thiamine HCl (Vitamin B-1) 100 mg DAILY PO Last administered on 03/21/16 10:44 ; Start 03/19/16 at 15:00 Diltiazem HCl 120 mg 120 mg DAILY PO Last administered on 03/21/16 10:47; Start 03/19/16 at 15:00 Heparin Sodium/ Dextrose 500 ml @ 0 mls/hr CONT PRN IV SEE I/O RECORD Last administered on 03/20/16 21:23; Start 03/19/16 at 17:45 Heparin Sodium (Porcine) 2,600 unit PRN Q6HRS PRN IV FOR UFH LEVEL LESS THAN 0.2 Last administered on 03/20/16 16:56; Start 03/19/16 at 17:45 Heparin Sodium (Porcine) 5,000 unit 1X ONCE IVP Last administered on 18:41; Start 03/19/16 at 18:00; Stop 03/19/16 at 18:01; Status DC Info (Anti-Coagulation Monitoring By Pharmacy) 1 each PRN DAILY PRN MC SEE COMMENTS; Start 03/19/16 at 18:00 Warfarin Sodium (Coumadin) 10 mg DAILY16 PO Last administered on 03/20/16 21: 24; Start 03/20/16 at 18:30 Warfarin Sodium (Coumadin Per Physician) 1 each PRN DAILY PRN MC SEE COMMENTS; Start 03/20/16 at 18:30 Active Scripts Active Reported Quinine Sulfate 324 Mg Capsule 324 Mg PO Aspir 81 (Aspirin) 81 Mg Tablet.dr 1 Tab PO DAILY Atenolol 50 Mg Tablet 50 Mg PO DAILY Tramadol Hcl 50 Mg Tablet 50 Mg PO PRN Q8HRS PRN Tamsulosin Hcl 0.4 Mg Cap.er.24h 0.4 Mg PO DAILY Pravastatin Sodium 20 Mg Tablet 1 Tab PO QHS Omeprazole 40 Mg Capsule.dr 40 Mg PO DAILY Levothyroxine Sodium 25 Mcg Tablet 15 Mcg PO DAILYAC Ketoconazole 15 Gm Cream..g. 1 Mary TP BID Gabapentin 300 Mg Capsule 300 Mg PO BID Furosemide 20 Mg Tablet 20 Mg PO DAILY Fosinopril Sodium 10 Mg Tablet 5 Mg PO DAILY Fish Oil 1,000 Mg Capsule ([place]-3 Fatty Acids/Fish Oil) 1 Each Capsule 1 Each PO BID Finasteride 5 Mg Tablet 5 Mg PO DAILY Vitamin D3 (Cholecalciferol (Vitamin D3)) 1,000 Unit Tablet 3 Tab PO DAILY Refresh Optive Eye Drops (Carboxymethylcellulos/Glycerin) 15 Ml Drops 1 Drop EACHEYE PRN QID PRN Acetaminophen 500 Mg Tablet 2 Tab PO PRN Q8HRS PRN Vitals/I & O Vital Sign - Last 24 Hours 03/20/16 03/20/16 03/20/16 03/20/16 15:00 19:23 20:00 23:27 Temp 98.1 98.8 98.5 98.1 98.8 98.5 Pulse 60 70 74 Resp 18 18 18 B/P 119/71 128/60 140/72 Pulse Ox 93 96 96 O2 Delivery Room Air Room Air Room Air Room Air 03/21/16 03/21/16 03/21/16 02:04 10:46 10:47 Temp 98.4 98.4 Pulse 64 76 76 Resp 16 B/P 129/74 144/84 144/84 Pulse Ox 98 O2 Delivery Room Air Intake and Output 03/20/16 03/20/16 03/21/16 15:00 23:00 07:00 Intake Total 1274 ml 240 ml Output Total 1450 ml 1000 ml Balance -176 ml -760 ml HEIDI RIDLEY MD Mar 21, 2016 11:47
--- NOTE | 2016-03-21 13:06 | PDOC ---
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 He is in atrial fibrillation with a controlled ventricular response. He is asymptomatic and is anxious to go home. Dr. 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 He could l go home on Coumadin and Dr. Daley will manage his INR. DEX SHEPPARD MD Mar 21, 2016 13:06
[2016-03-21 15:00] VITALS: BP 114/69
[2016-03-21] MEDS: WARFARIN 10 MG TABLET. PO SCH (16:35)
[2016-03-21] MEDS: HEPARIN 25,000UTS/500ML PREMIX 500 ML IV PRN (18:42)
[2016-03-21 19:34] VITALS: BP 137/76
[2016-03-21] MEDS: quiNINE 324 MG CAPSULE. PO SCH (20:58)
[2016-03-21] MEDS: ATORVASTATIN CALCIUM 10 MG TABLET. PO SCH (20:58)
[2016-03-21 23:33] VITALS: BP 143/81
[2016-03-22 02:57] VITALS: BP 137/75
[2016-03-22] MEDS: LEVOTHYROXINE 25 MCG TABLET. PO SCH (06:14)
[2016-03-22 06:23] LABS: INR 1.5 (0.8-1.1); PROTHROMBIN TIME PATIENT 16.9 SEC (11.7-14.0)
[2016-03-22 07:08] VITALS: BP 141/85
[2016-03-22] MEDS: KETOCONAZOLE 2% TOPICAL CREAM 15GM TUBE. TP SCH (09:00)
[2016-03-22] MEDS: GABAPENTIN 300 MG CAPSULE. PO SCH (09:13)
[2016-03-22] MEDS: FUROSEMIDE 20 MG TABLET PO SCH (09:13)
[2016-03-22] MEDS: ASPIRIN ENTERIC COATED 81 MG TABLET.DR. PO SCH (09:13)
[2016-03-22] MEDS: TAMSULOSIN 0.4 MG CAP.ER.24H. PO SCH (09:14)
[2016-03-22] MEDS: FINASTERIDE 5 MG TABLET PO SCH (09:14)
[2016-03-22] MEDS: DILTIAZEM HCL 120 MG CAP.ER.24H PO SCH (09:14)
[2016-03-22] MEDS: PANTOPRAZOLE 40 MG TABLET. PO SCH (09:14)
[2016-03-22] MEDS: THIAMINE 100 MG TABLET. PO SCH (09:14)
[2016-03-22] MEDS: LISINOPRIL 5 MG TABLET. PO SCH (09:15)
--- NOTE | 2016-03-22 09:34 | PDOC ---
PROGRESS NOTES Subjective Subjective Patient doing very well today. He denies chest pain and shortness of breath at this time. He feels very well now, has been able to ambulate, and is beginning to wonder when he will be able to go home. Objective Objective Vital Signs Date Time Temp Pulse Resp B/P Pulse Ox O2 Delivery O2 Flow Rate FiO2 03/22/16 09:15 101 159/75 03/22/16 07:08 98.2 20 97 Room Air 98.2 03/19/16 11:00 99.0 Intake and Output 03/22/16 07:00 Intake Total 829 ml Output Total 1650 ml Balance -821 ml Intake Oral 340 ml IV Total 489 ml Output Urine Total 1650 ml # Bowel Movements 1 Physical Exam Physical Exam +edema of lower extremities, Heart: irregularly irregular rhythm. Lungs: Clear to auscultation Assessment Assessment Paroxysmal Atrial-Fibrillation. Plan Plan of Care Continue PO Cardizem and other home medications upon discharge. Continue Warfarin 5mg PO daily at home. Patient is cleared to go home from a cardiac standpoint and will follow up in my office in 2 weeks. Thank you again for consulting me in the care of this patient. Comment Review of Relevant I have reviewed the following items juany (where applicable) has been applied. Labs Laboratory Tests Test 03/20/16 16:50 03/21/16 05:00 03/22/16 04:55 Prothrombin Time 13.9SEC (11.7-14.0) 13.8SEC (11.7-14.0) 16.9SEC (11.7-14.0) Prothromb Time International Ratio 1.1 (0.8-1.1) 1.1 (0.8-1.1) 1.5 (0.8-1.1) Heparin Anti-Xa Act, Unfractionated 0.15IU/mL (0.30-0.70) Laboratory Tests Test 03/22/16 04:55 Prothrombin Time 16.9SEC (11.7-14.0) Prothromb Time International Ratio 1.5 (0.8-1.1) Medications Current Medications Diltiazem HCl/ Dextrose (Cardizem) 125 ml @ 0 mls/hr CONT PRN IV SEE I/O RECORD Last administered on 03/19/16t 08:32; Start 03/18/16 at 21:00; Stop at 21:00; Status DC Enoxaparin Sodium (Lovenox 40mg Syringe) 40 mg Q24H SQ Last administered on 09:42; Start 03/19/16 at 09:00; Stop 03/20/16 at 07:31; Status DC Acetaminophen (Tylenol) 500 mg PRN Q8HRS PRN PO PAIN; Start 03/18/16 at 22:30 Aspirin (Ecotrin) 81 mg DAILY PO Last administered on 03/22/16 09:13; Start at 09:00 Atenolol (Tenormin) 50 mg DAILY PO Last administered on 03/20/16 10:39; Start 03/19/16 at 09:00; Stop 03/20/16 at 13:23; Status DC Finasteride (Proscar) 5 mg DAILY PO Last administered on 03/22/16 09:14; Start 03/19/16 at 09:00 Furosemide (Lasix) 20 mg DAILY PO Last administered on 03/22/16 09:13; Start 03/19/16 at 09:00 Gabapentin (Neurontin) 300 mg BID PO Last administered on 03/22/16 09:13; Start 03/19/16 at 09:00 Ketoconazole (Nizoral 2% Topical) 1 mary BID TP Last administered on 03/21/16 20:58; Start 03/19/16 at 09:00 Levothyroxine Sodium (Synthroid) 15 mcg DAILY07 PO Last administered on 06:14; Start 03/19/16 at 07:00 Quinine Sulfate (Qualaquin) 324 mg HS PO Last administered on 03/21/16 20:58; Start 03/19/16 at 21:00 Tamsulosin HCl (Flomax) 0.4 mg DAILY PO Last administered on 03/22/16 09:14; Start 03/19/16 at 09:00 Tramadol HCl (Ultram) 50 mg PRN Q8HRS PRN PO PAIN; Start 03/18/16 at 22:30 Artificial Tears (Artificial Tears) 1 drop PRN QID PRN OU dry eyes; Start at 22:30 Lisinopril (Prinivil) 5 mg DAILY PO Last administered on 03/22/16 09:15; Start 03/19/16 at 09:00 Pantoprazole Sodium (Protonix) 40 mg DAILYAC PO Last administered on 03/22/16 09:14; Start 03/19/16 at 07:30 Atorvastatin Calcium (Lipitor) 5 mg QHS PO Last administered on 03/21/16 20:58 ; Start 03/19/16 at 21:00 Thiamine HCl (Vitamin B-1) 100 mg DAILY PO Last administered on 03/22/16 09:14 ; Start 03/19/16 at 15:00 Diltiazem HCl 120 mg 120 mg DAILY PO Last administered on 03/22/16 09:14; Start 03/19/16 at 15:00 Heparin Sodium/ Dextrose 500 ml @ 0 mls/hr CONT PRN IV SEE I/O RECORD Last administered on 03/21/16 18:42; Start 03/19/16 at 17:45 Heparin Sodium (Porcine) 2,600 unit PRN Q6HRS PRN IV FOR UFH LEVEL LESS THAN 0.2 Last administered on 03/20/16 16:56; Start 03/19/16 at 17:45 Heparin Sodium (Porcine) 5,000 unit 1X ONCE IVP Last administered on 18:41; Start 03/19/16 at 18:00; Stop 03/19/16 at 18:01; Status DC Info (Anti-Coagulation Monitoring By Pharmacy) 1 each PRN DAILY PRN MC SEE COMMENTS; Start 03/19/16 at 18:00 Warfarin Sodium (Coumadin) 10 mg DAILY16 PO Last administered on 03/21/16 16: 35; Start 03/20/16 at 18:30 Warfarin Sodium (Coumadin Per Physician) 1 each PRN DAILY PRN MC SEE COMMENTS; Start 03/20/16 at 18:30 Active Scripts Active Reported Quinine Sulfate 324 Mg Capsule 324 Mg PO Aspir 81 (Aspirin) 81 Mg Tablet. 1 Tab PO DAILY Atenolol 50 Mg Tablet 50 Mg PO DAILY Tramadol Hcl 50 Mg Tablet 50 Mg PO PRN Q8HRS PRN Tamsulosin Hcl 0.4 Mg Cap.er.24h 0.4 Mg PO DAILY Pravastatin Sodium 20 Mg Tablet 1 Tab PO QHS Omeprazole 40 Mg Capsule.dr 40 Mg PO DAILY Levothyroxine Sodium 25 Mcg Tablet 15 Mcg PO DAILYAC Ketoconazole 15 Gm Cream..g. 1 Mary TP BID Gabapentin 300 Mg Capsule 300 Mg PO BID Furosemide 20 Mg Tablet 20 Mg PO DAILY Fosinopril Sodium 10 Mg Tablet 5 Mg PO DAILY Fish Oil 1,000 Mg Capsule ([place]-3 Fatty Acids/Fish Oil) 1 Each Capsule 1 Each PO BID Finasteride 5 Mg Tablet 5 Mg PO DAILY Vitamin D3 (Cholecalciferol (Vitamin D3)) 1,000 Unit Tablet 3 Tab PO DAILY Refresh Optive Eye Drops (Carboxymethylcellulos/Glycerin) 15 Ml Drops 1 Drop EACHEYE PRN QID PRN Acetaminophen 500 Mg Tablet 2 Tab PO PRN Q8HRS PRN Vitals/I & O Vital Sign - Last 24 Hours 03/21/16 03/21/16 03/21/16 03/21/16 10:46 10:47 11:00 15:00 Temp 97.8 97.8 97.8 97.8 Pulse 76 76 86 70 Resp 24 20 B/P 144/84 144/84 147/76 114/69 Pulse Ox 97 96 O2 Delivery Room Air Room Air 03/21/16 03/21/16 03/21/16 03/22/16 19:34 20:10 23:33 02:57 Temp 97.9 97.9 97.8 97.9 97.9 97.8 Pulse 72 84 60 Resp 18 20 16 B/P 137/76 143/81 137/75 Pulse Ox 97 96 97 O2 Delivery Room Air Room Air Room Air Room Air 03/22/16 03/22/16 03/22/16 07:08 09:14 09:15 Temp 98.2 98.2 Pulse 75 101 101 Resp 20 B/P 141/85 159/75 159/75 Pulse Ox 97 O2 Delivery Room Air Intake and Output 03/21/16 03/21/16 03/22/16 15:00 23:00 07:00 Intake Total 709 ml 120 ml Output Total 1650 ml Balance -941 ml 120 ml BREEZY TORRES MD Mar 22, 2016 09:34
--- NOTE | 2016-03-22 09:47 | PDOC ---
PROGRESS NOTES Assessment Metabolic encephalopathy, alcohol intoxication New onset AFib with RVR. Chest pain Hx of SVT HTN Colon cancer Prostate cancer Skin cancer Plan Okay for discharge Follow up with neurology as needed Subjective No complaints Objective Vital Signs Date Time Temp Pulse Resp B/P Pulse Ox O2 Delivery O2 Flow Rate FiO2 03/22/16 09:15 101 159/75 03/22/16 07:08 98.2 20 97 Room Air 98.2 Intake and Output 03/22/16 07:00 Intake Total 829 ml Output Total 1650 ml Balance -821 ml Intake Oral 340 ml IV Total 489 ml Output Urine Total 1650 ml # Bowel Movements 1 PHYSICAL EXAM Alert. Oriented to time, place and person. PERRL. EOMI. CN: no focal findings. Muscle tone: normal. Muscle strength: 5/5 DTR: 2+ Plantar reflex: Flexor Gait: not examined in bed. Sensory exam: no abnormal findings. No cerebellar signs elicited. Review of Relevant I have reviewed the following items junay (where applicable) has been applied. Labs Laboratory Tests Test 03/20/16 16:50 03/21/16 05:00 03/22/16 04:55 Prothrombin Time 13.9SEC (11.7-14.0) 13.8SEC (11.7-14.0) 16.9SEC (11.7-14.0) Prothromb Time International Ratio 1.1 (0.8-1.1) 1.1 (0.8-1.1) 1.5 (0.8-1.1) Heparin Anti-Xa Act, Unfractionated 0.15IU/mL (0.30-0.70) Laboratory Tests Test 03/22/16 04:55 Prothrombin Time 16.9SEC (11.7-14.0) Prothromb Time International Ratio 1.5 (0.8-1.1) Medications Current Medications Diltiazem HCl/ Dextrose (Cardizem) 125 ml @ 0 mls/hr CONT PRN IV SEE I/O RECORD Last administered on 03/19/16 08:32; Start 03/18/16 at 21:00; Stop at 21:00; Status DC Enoxaparin Sodium (Lovenox 40mg Syringe) 40 mg Q24H SQ Last administered on 09:42; Start 03/19/16 at 09:00; Stop 03/20/16 at 07:31; Status DC Acetaminophen (Tylenol) 500 mg PRN Q8HRS PRN PO PAIN; Start 03/18/16 at 22:30 Aspirin (Ecotrin) 81 mg DAILY PO Last administered on 03/22/16 09:13; Start at 09:00 Atenolol (Tenormin) 50 mg DAILY PO Last administered on 03/20/16 10:39; Start 03/19/16 at 09:00; Stop 03/20/16 at 13:23; Status DC Finasteride (Proscar) 5 mg DAILY PO Last administered on 03/22/16 09:14; Start 03/19/16 at 09:00 Furosemide (Lasix) 20 mg DAILY PO Last administered on 03/22/16 09:13; Start 03/19/16 at 09:00 Gabapentin (Neurontin) 300 mg BID PO Last administered on 03/22/16 09:13; Start 03/19/16 at 09:00 Ketoconazole (Nizoral 2% Topical) 1 mary BID TP Last administered on 03/21/16 20:58; Start 03/19/16 at 09:00 Levothyroxine Sodium (Synthroid) 15 mcg DAILY07 PO Last administered on 06:14; Start 03/19/16 at 07:00 Quinine Sulfate (Qualaquin) 324 mg HS PO Last administered on 03/21/16 20:58; Start 03/19/16 at 21:00 Tamsulosin HCl (Flomax) 0.4 mg DAILY PO Last administered on 03/22/16 09:14; Start 03/19/16 at 09:00 Tramadol HCl (Ultram) 50 mg PRN Q8HRS PRN PO PAIN; Start 03/18/16 at 22:30 Artificial Tears (Artificial Tears) 1 drop PRN QID PRN OU dry eyes; Start at 22:30 Lisinopril (Prinivil) 5 mg DAILY PO Last administered on 03/22/16 09:15; Start 03/19/16 at 09:00 Pantoprazole Sodium (Protonix) 40 mg DAILYAC PO Last administered on 03/22/16 09:14; Start 03/19/16 at 07:30 Atorvastatin Calcium (Lipitor) 5 mg QHS PO Last administered on 03/21/16 20:58 ; Start 03/19/16 at 21:00 Thiamine HCl (Vitamin B-1) 100 mg DAILY PO Last administered on 03/22/16 09:14 ; Start 03/19/16 at 15:00 Diltiazem HCl 120 mg 120 mg DAILY PO Last administered on 03/22/16 09:14; Start 03/19/16 at 15:00 Heparin Sodium/ Dextrose 500 ml @ 0 mls/hr CONT PRN IV SEE I/O RECORD Last administered on 03/21/16 18:42; Start 03/19/16 at 17:45 Heparin Sodium (Porcine) 2,600 unit PRN Q6HRS PRN IV FOR UFH LEVEL LESS THAN 0.2 Last administered on 03/20/16 16:56; Start 03/19/16 at 17:45 Heparin Sodium (Porcine) 5,000 unit 1X ONCE IVP Last administered on 18:41; Start 03/19/16 at 18:00; Stop 03/19/16 at 18:01; Status DC Info (Anti-Coagulation Monitoring By Pharmacy) 1 each PRN DAILY PRN MC SEE COMMENTS; Start 03/19/16 at 18:00 Warfarin Sodium (Coumadin) 10 mg DAILY16 PO Last administered on 03/21/16 16: 35; Start 03/20/16 at 18:30 Warfarin Sodium (Coumadin Per Physician) 1 each PRN DAILY PRN MC SEE COMMENTS; Start 03/20/16 at 18:30 Active Scripts Active Reported Quinine Sulfate 324 Mg Capsule 324 Mg PO Aspir 81 (Aspirin) 81 Mg Tablet.dr 1 Tab PO DAILY Atenolol 50 Mg Tablet 50 Mg PO DAILY Tramadol Hcl 50 Mg Tablet 50 Mg PO PRN Q8HRS PRN Tamsulosin Hcl 0.4 Mg Cap.er.24h 0.4 Mg PO DAILY Pravastatin Sodium 20 Mg Tablet 1 Tab PO QHS Omeprazole 40 Mg Capsule.dr 40 Mg PO DAILY Levothyroxine Sodium 25 Mcg Tablet 15 Mcg PO DAILYAC Ketoconazole 15 Gm Cream..g. 1 Mary TP BID Gabapentin 300 Mg Capsule 300 Mg PO BID Furosemide 20 Mg Tablet 20 Mg PO DAILY Fosinopril Sodium 10 Mg Tablet 5 Mg PO DAILY Fish Oil 1,000 Mg Capsule ([place]-3 Fatty Acids/Fish Oil) 1 Each Capsule 1 Each PO BID Finasteride 5 Mg Tablet 5 Mg PO DAILY Vitamin D3 (Cholecalciferol (Vitamin D3)) 1,000 Unit Tablet 3 Tab PO DAILY Refresh Optive Eye Drops (Carboxymethylcellulos/Glycerin) 15 Ml Drops 1 Drop EACHEYE PRN QID PRN Acetaminophen 500 Mg Tablet 2 Tab PO PRN Q8HRS PRN Vitals/I & O Vital Sign - Last 24 Hours 03/21/16 03/21/16 03/21/16 03/21/16 10:46 10:47 11:00 15:00 Temp 97.8 97.8 97.8 97.8 Pulse 76 76 86 70 Resp 24 20 B/P 144/84 144/84 147/76 114/69 Pulse Ox 97 96 O2 Delivery Room Air Room Air 03/21/16 03/21/16 03/21/16 03/22/16 19:34 20:10 23:33 02:57 Temp 97.9 97.9 97.8 97.9 97.9 97.8 Pulse 72 84 60 Resp 18 20 16 B/P 137/76 143/81 137/75 Pulse Ox 97 96 97 O2 Delivery Room Air Room Air Room Air Room Air 03/22/16 03/22/16 03/22/16 07:08 09:14 09:15 Temp 98.2 98.2 Pulse 75 101 101 Resp 20 B/P 141/85 159/75 159/75 Pulse Ox 97 O2 Delivery Room Air Intake and Output 03/21/16 03/21/16 03/22/16 15:00 23:00 07:00 Intake Total 709 ml 120 ml Output Total 1650 ml Balance -941 ml 120 ml DOMINICK HANNAH MD Mar 22, 2016 09:47
[2016-03-22 10:39] VITALS: BP 142/78
[2016-03-22 14:17] VITALS: BP 141/73
[2016-03-22] MEDS ORDERED: DILT120C97 PO (14:18)
[2016-03-22] MEDS ORDERED: THIA100T4 PO (14:18)
[2016-03-22] MEDS ORDERED: LEVO25TA2 PO (14:18)
[2016-03-22] MEDS ORDERED: WARF7.5T PO (14:18)
--- NOTE | 2016-03-22 14:27 | PDOC3 ---
Discharge Summary [facility] Date of Admission: Mar 18, 2016 Discharge Date: Mar 22, 2016 Admitting Diagnosis Afib with RVR SOB Hypothyroidism alcoholism Problems: Final Diagnosis Problems Medical Problems: (1) Afib Status: Acute CONSULTS card neuro Brief Hospital Course Mr. Pickard is a 80 old [place], some dementia, came for rapid afib. was on cardizem drip. dc home with cardizem, warfarin, with HH for INR ,goal 2-3 dc time 35min General: Alert, Oriented X3 Heart: Normal S1, Normal S2 Lungs: Clear Abdomen: Normal bowel sounds, Soft Extremities: Other (edema) Problems: Disposition hh CONDITION AT DISCHARGE: Improved Diet cardiac Scheduled Cholecalciferol (Vitamin D3) (Vitamin D3) 3 TAB PO DAILY (Reported) Diltiazem Hcl (Diltiazem 24HR Cd) 120 MG PO DAILY Finasteride (Finasteride) 5 MG PO DAILY (Reported) Fosinopril Sodium (Fosinopril Sodium) 5 MG PO DAILY (Reported) Furosemide (Furosemide) 20 MG PO DAILY (Reported) Gabapentin (Gabapentin) 300 MG PO BID (Reported) Ketoconazole (Ketoconazole) 1 BLAINE TP BID (Reported) Levothyroxine Sodium (Synthroid) 25 MCG PO DAILY07 [place]-3 Fatty Acids/Fish Oil (Fish Oil 1,000 Mg Capsule) 1 EACH PO BID (Reported ) Omeprazole (Omeprazole) 40 MG PO DAILY (Reported) Pravastatin Sodium (Pravastatin Sodium) 1 TAB PO QHS (Reported) Tamsulosin Hcl (Tamsulosin Hcl) 0.4 MG PO DAILY (Reported) Thiamine Hcl (Vitamin B-1) 100 MG PO DAILY Warfarin Sodium (Coumadin) 5 MG PO DAILY16 Scheduled PRN Acetaminophen (Acetaminophen) 2 TAB PO PRN Q8HRS PRN PRN PAIN (Reported) Carboxymethylcellulos/Glycerin (Refresh Optive Eye Drops) 1 DROP EACHEYE PRN QID PRN PRN dry eyes (Reported) Tramadol Hcl (Tramadol Hcl) 50 MG PO PRN Q8HRS PRN PRN PAIN (Reported) Miscellaneous Medications Quinine Sulfate (Quinine Sulfate) 324 MG PO (Reported) Discontinued Medications Aspirin (Aspir 81) 1 TAB PO DAILY (Reported) Atenolol (Atenolol) 50 MG PO DAILY (Reported) Levothyroxine Sodium (Levothyroxine Sodium) 15 MCG PO DAILYAC (Reported) Follow Up card in 2 weeks OG SORENSEN MD Mar 22, 2016 14:26
[2016-03-22] MEDS ORDERED: WARFARIN 7.5 MG TABLET. PO SCH (16:00)
[2016-03-22] MEDS ORDERED: WARFARIN 5 MG TABLET. PO SCH (16:00)
[2016-03-23] MEDS ORDERED: LEVOTHYROXINE 25 MCG TABLET. PO SCH (07:00)
== END 2016-03-22 17:00 | disposition home health service (06) | DRG 308 ==
LOC: 2 NORTH 20:25
PROVIDERS: ADMIT Internal Medicine; ATTEND Internal Medicine
DX: I48.0 Paroxysmal atrial fibrillation (principal); G93.41 Metabolic encephalopathy; Z94.0 Kidney transplant status; F10.229 Alcohol dependence with intoxication, unspecified; E03.9 Hypothyroidism, unspecified; F03.90 Unspecified dementia, unspecified severity, without behavioral disturbance, psychotic disturbance, mood disturbance, and anxiety; I27.2 Other secondary pulmonary hypertension; F32.9 Major depressive disorder, single episode, unspecified; F41.9 Anxiety disorder, unspecified; M19.90 Unspecified osteoarthritis, unspecified site; I12.9 Hypertensive chronic kidney disease with stage 1 through stage 4 chronic kidney disease, or unspecified chronic kidney disease; E11.22 Type 2 diabetes mellitus with diabetic chronic kidney disease; N18.9 Chronic kidney disease, unspecified; N40.0 Benign prostatic hyperplasia without lower urinary tract symptoms; Z85.048 Personal history of other malignant neoplasm of rectum, rectosigmoid junction, and anus; Z82.49 Family history of ischemic heart disease and other diseases of the circulatory system; Z85.46 Personal history of malignant neoplasm of prostate; Z85.828 Personal history of other malignant neoplasm of skin
CPT/HCPCS: 36415; 70450; 82565; 82607; 84443; 84484; 85520; 85610; 93005; 93306; J1650; J3490

== ENCOUNTER 2021-02-25 09:27 | Inpatient (IN) | payer OTHER ==
[~2021-02-25] VITALS: Ht 182.9 cm; Wt 107.0 kg
[2021-02-25] VITALS (11 sets, daily range): BP systolic 120–156; BP diastolic 56–67
[~2021-02-25 09:27] MED LIST: ACET500T68 PO; ASPI-482 PO; ATEN50TA PO; CARB15DR3 EACHEYE; CHOL10003 PO; DILT120C99 PO; FINA5TAB4 PO; FOSI10TA42 PO; FURO20TA3 PO; GABA300C18 PO; KETO15CR2 TP; LEVO25TA4 PO; LEVO25TA55 PO; OMEG1CAP6 PO; OMEP40CA7 PO; PRAV20TA2 PO; QUIN324C PO; TAMS0.4C2 PO; THIA100T57 PO; TRAM50TA PO; WARF7.5T48 PO
[2021-02-25 10:10] LABS: BASO % 0 % (0-3); EOS % 0 % (0-3); LYMPH # 1.6 x10^3/uL (1.0-4.8); LYMPH % 15 % (24-48); MEAN CORPUSCULAR HEMOGLOBIN 25 pg (25-35); MEAN CORPUSCULAR HGB CONC 31 g/dL (31-37); MEAN CORPUSCULAR VOLUME 80 fL (79-100); MONO # 0.9 x10^3/uL (0.0-1.1); MONO % 8 % (0-9); NEUT % 76 % (31-73); PLATELET COUNT 274 x10^3/uL (140-400); RED BLOOD COUNT 2.41 x10^6/uL (4.30-5.70); RED CELL DISTRIBUTION WIDTH 18.5 % (11.5-14.5); WHITE BLOOD COUNT 10.6 x10^3/uL (4.0-11.0)
[2021-02-25 10:16] LABS: HEMATOCRIT 19.3 % (39.0-53.0); HEMOGLOBIN 6.1 g/dL (13.0-17.5)
[2021-02-25 10:17] LABS: CALCIUM 8.3 mg/dL (8.5-10.1); CREATININE 1.7 mg/dL (0.7-1.3); GFR 38.7; POTASSIUM 4.5 mmol/L (3.5-5.1); PROTHROMBIN TIME PATIENT 15.1 SEC (11.7-14.0)
--- NOTE | 2021-02-25 10:18 | RAD ---
AP chest. HISTORY: Tachycardia AP view was taken of the chest. There is arthritis in both shoulders. Heart is mildly prominent. Ther e is no pleural effusion. There are no confluent infiltrates. IMPRESSION: 1. Mild cardiac enlargement. 2. No acute infiltrates. Electronically signed by: Robi Fermin MD (02/25/2021 10:16 AM) [id number]
[2021-02-25 10:22] LABS: ALBUMIN 3.3 g/dL (3.4-5.0); ALBUMIN/GLOBULIN RATIO 1.2 (1.0-1.7); MAGNESIUM 1.9 mg/dL (1.8-2.4); PHOSPHORUS 2.5 mg/dL (2.6-4.7); TOTAL BILIRUBIN 0.4 mg/dL (0.2-1.0)
[2021-02-25] MEDS ORDERED: IV NORMAL SALINE 1000ML BAG 1,000 ML IV ONE (10:30)
[2021-02-25 10:43] LABS: FECAL OB PT POSITIVE (NEG)
[2021-02-25] MEDS ORDERED: IOHEXOL 300 MG/ML 100ML VIAL. IV ONE (10:45)
[2021-02-25] MEDS ORDERED: CONTRAST GIVEN. MC PRN (10:45)
--- NOTE | 2021-02-25 11:04 | PHYS DOC ---
Past Medical History Smoking Status: Never Smoker Alcohol Use: None (RONNY SMITH APRN) General Adult EDM: Chief Complaint: RECTAL BLEED HPI: HPI: Patient is a 85-year-old male who presents to the emergency department with complaints of generalized weakness with body aches all over that started approximately 1-1/2 days ago currently rates his body aches at a 4 or 5 out of 10., reports seeing a black tarry stool this morning and worried he may have a GI bleed as he has had these in the past. Patient reports having 2 bowel resections approximately 6-1/2 years ago related to GI bleeding. Patient reports other surgeries but does not know exactly what they are. Patient is unsure of the medications he takes at home, states he has a history of atrial fibrillation and high blood pressure and prostate problems. Patient is not sure if he still takes a blood thinner or not. Patient reports he seeks primary care at the [facility]. Patient has not received the COVID-19 virus vaccine or the flu vaccine this year. Patient states he has not received the Pneumovax vaccine. Patient reports intermittent mild nausea, no vomiting, no constipation or diarrhea. Denies abdominal pain. Denies chest pain or shortness of breath. Denies fever or chills at home. Patient denies other physical complaints or physical concerns (RONNY SMITH APRN) Review of Systems: Review of Systems: Limited ROS, patient is poor historian 14 body systems of review of systems have been reviewed. See HPI for pertinent positives and negative responses, otherwise all other systems are negative, nonpertinent or noncontributory. Constitutional: Negative except as outlined in HPI above. Skin: Negative except as outlined in HPI above. Eyes: Negative except as outlined in HPI above. HENT: Negative except as outlined in HPI above. Respiratory: Negative except as outlined in HPI above. Cardiovascular: Negative except as outlined in HPI above. GI: Negative except as outlined in HPI above. : Negative except as outlined in HPI above. Musculoskeletal: Negative except as outlined in HPI above. Integument: Negative except as outlined in HPI above. Neurologic: Negative except as outlined in HPI above. Endocrine: Negative except as outlined in HPI above. Lymphatic: Negative except as outlined in HPI above. Psychiatric: Negative except as outlined in HPI above. (RONNY SMITH APRN) Heart Score: C/O Chest Pain: No Risk Factors: Risk Factors: DM, Current or recent (<one month) smoker, HTN, HLP, family history of CAD, obesity. Risk Scores: Score 0 - 3: 2.5% MACE over next 6 weeks - Discharge Home Score 4 - 6: 20.3% MACE over next 6 weeks - Admit for Clinical Observation Score 7 - 10: 72.7% MACE over next 6 weeks - Early Invasive Strategies (RONNY SMITH APRN) Current Medications: Current Medications Medications (Trade) Dose Ordered Sig/Peter Start Time Stop Time Status Last Admin Dose Admin Diltiazem HCl (Cardizem Iv Push) 10 mg 1X ONCE 02/25/21 10:30 02/25/21 10:40 DC Diltiazem HCl 125 mg/Sodium Chloride 125 ml @ 5 mls/hr CONT PRN 02/25/21 10:30 Info (CONTRAST GIVEN -- Rx MONITORING) 1 each PRN DAILY PRN 02/25/21 10:45 02/27/21 10:44 Iohexol (Omnipaque 300 Mg/ml) 60 ml 1X ONCE 02/25/21 10:45 02/25/21 10:46 Sodium Chloride 1,000 ml @ 1,000 mls/hr 1X ONCE 02/25/21 10:30 02/25/21 11:29 (RONNY SMITH APRN) Allergies: Allergies: Allergies Coded Allergies Type Severity Reaction Last Updated Verified No Known Drug Allergies 03/18/16 No (RONNY SMITH APRN) Physical Exam: PE: Constitutional: Well developed, well nourished, no acute distress, non-toxic appearance. 85-year-old male in no apparent distress. Patient is extremely hard of hearing, wears headphones with amplifier device. HENT: Normocephalic, atraumatic. Moist, no deep tissue infectious process of the oropharynx appreciated, nasal turbinates patent, bilateral TMs are normal limits, no lymphadenopathy of the head or neck appreciated. Eyes: Conjunctiva pale eyelids otherwise normal, no discharge. Neck: Normal range of motion, no stridor. Cardiovascular: No cyanosis appreciated, distal cap refill less than 2 seconds. Tachycardic irregular rate to auscultation. Bedside 5-lead monitor shows atrial fibrillation at rate of 123 bpm. Lungs & Thorax: Patient is in no respiratory distress, no audible adventitious lung sounds appreciated. Clear to auscultation upper lobes, diminished lower lobes bilaterally. Abdomen: Nontender, old well-healed surgical scars, no masses, no megaly, bowel sounds normal active all 4 quadrants. No bruising or skin discoloration of the abdomen appreciated. Skin: Warm, dry, no erythema, no rash. Back: No tenderness, no deformities. Extremities: No tenderness, no cyanosis, no clubbing, ROM intact, no edema. Neurologic: Alert and oriented X 3, normal motor function, normal sensory function, no focal deficits noted. Psychologic: Affect normal, judgement normal, mood normal. : ED nurse at bedside for air conditioning unit assembler during rectal examination, dark maroon stool obtained, sent to lab for occult blood study. No external or internal hemorrhoids appreciated. Stool soft in the rectal vault. (RONNY SMITH APRN) Current Patient Data: Labs: Laboratory Tests Test 02/25/21 09:55 02/25/21 10:22 White Blood Count 10.6 x10^3/uL Red Blood Count 2.41 x10^6/uL Hemoglobin 6.1 g/dL Hematocrit 19.3 % Mean Corpuscular Volume 80 fL Mean Corpuscular Hemoglobin 25 pg Mean Corpuscular Hemoglobin Concent 31 g/dL Red Cell Distribution Width 18.5 % Platelet Count 274 x10^3/uL Neutrophils (%) (Auto) 76 % Lymphocytes (%) (Auto) 15 % Monocytes (%) (Auto) 8 % Eosinophils (%) (Auto) 0 % Basophils (%) (Auto) 0 % Neutrophils # (Auto) 8.0 x10^3/uL Lymphocytes # (Auto) 1.6 x10^3/uL Monocytes # (Auto) 0.9 x10^3/uL Eosinophils # (Auto) 0.0 x10^3/uL Basophils # (Auto) 0.0 x10^3/uL Prothrombin Time 15.1 SEC Prothromb Time International Ratio 1.2 Activated Partial Thromboplast Time 26 SEC Sodium Level 139 mmol/L Potassium Level 4.5 mmol/L Chloride Level 105 mmol/L Carbon Dioxide Level 19 mmol/L Anion Gap 15 Blood Urea Nitrogen 50 mg/dL Creatinine 1.7 mg/dL Estimated GFR (Cockcroft-Gault) 38.7 BUN/Creatinine Ratio 29 Glucose Level 143 mg/dL Calcium Level 8.3 mg/dL Phosphorus Level 2.5 mg/dL Magnesium Level 1.9 mg/dL Total Bilirubin 0.4 mg/dL Aspartate Amino Transf (AST/SGOT) 11 U/L Alanine Aminotransferase (ALT/SGPT) 18 U/L Alkaline Phosphatase 72 U/L Troponin I High Sensitivity 60 ng/L MX-Oin-S-Type Natriuretic Peptide 638 pg/mL Total Protein 6.0 g/dL Albumin 3.3 g/dL Albumin/Globulin Ratio 1.2 Lipase 48 U/L Stool Occult Blood Positive Current Medications Medications (Trade) Dose Ordered Sig/Peter Route PRN Reason Start Time Stop Time Status Last Admin Dose Admin Sodium Chloride 1,000 ml @ 1,000 mls/hr 1X ONCE IV 02/25/21 10:30 02/25/21 11:29 DC 02/25/21 10:52 Diltiazem HCl 125 mg/Sodium Chloride 125 ml @ 5 mls/hr CONT PRN IV PER PROTOCOL 02/25/21 10:30 02/25/21 10:51 Diltiazem HCl (Cardizem Iv Push) 10 mg 1X ONCE IVP 02/25/21 10:30 02/25/21 10:40 DC 02/25/21 10:52 Iohexol (Omnipaque 300 Mg/ml) 60 ml 1X ONCE IV 02/25/21 10:45 02/25/21 10:46 DC 02/25/21 10:50 Info (CONTRAST GIVEN -- Rx MONITORING) 1 each PRN DAILY PRN MC SEE COMMENTS 02/25/21 10:45 02/27/21 10:44 Ondansetron HCl (Zofran) 4 mg PRN Q6HRS PRN IVP NAUSEA/VOMITING 02/25/21 11:30 Calcium Carbonate/ Glycine (Tums) 500 mg PRN Q3HRS PRN PO UPSET STOMACH 02/25/21 11:30 Zolpidem Tartrate (Ambien) 5 mg PRN QHS PRN PO INSOMNIA, MAY REPEAT IN 1HR 02/25/21 11:30 Info (Non-Icu Electrolyte Protocol) 1 ea PRN DAILY PRN MC SEE COMMENTS 02/25/21 11:30 Pantoprazole Sodium 80 mg/ Sodium Chloride 100 ml @ 10 mls/hr Q10H PRN IV GIB 02/25/21 12:00 Laboratory Tests Test 02/25/21 09:55 02/25/21 10:22 White Blood Count 10.6 x10^3/uL (4.0-11.0) Red Blood Count 2.41 x10^6/uL (4.30-5.70) L Hemoglobin 6.1 g/dL (13.0-17.5) *L Hematocrit 19.3 % (39.0-53.0) *L Mean Corpuscular Volume 80 fL (79-100) Mean Corpuscular Hemoglobin 25 pg (25-35) Mean Corpuscular Hemoglobin Concent 31 g/dL (31-37) Red Cell Distribution Width 18.5 % (11.5-14.5) H Platelet Count 274 x10^3/uL (140-400) Neutrophils (%) (Auto) 76 % (31-73) H Lymphocytes (%) (Auto) 15 % (24-48) L Monocytes (%) (Auto) 8 % (0-9) Eosinophils (%) (Auto) 0 % (0-3) Basophils (%) (Auto) 0 % (0-3) Neutrophils # (Auto) 8.0 x10^3/uL (1.8-7.7) H Lymphocytes # (Auto) 1.6 x10^3/uL (1.0-4.8) Monocytes # (Auto) 0.9 x10^3/uL (0.0-1.1) Eosinophils # (Auto) 0.0 x10^3/uL (0.0-0.7) Basophils # (Auto) 0.0 x10^3/uL (0.0-0.2) Prothrombin Time 15.1 SEC (11.7-14.0) H Prothrombin Time INR 1.2 (0.8-1.1) H Activated Partial Thromboplast Time 26 SEC (24-38) Sodium Level 139 mmol/L (136-145) Potassium Level 4.5 mmol/L (3.5-5.1) Chloride Level 105 mmol/L (98-107) Carbon Dioxide Level 19 mmol/L (21-32) L Anion Gap 15 (6-14) H Blood Urea Nitrogen 50 mg/dL (8-26) H Creatinine 1.7 mg/dL (0.7-1.3) H Estimated GFR (Cockcroft-Gault) 38.7 BUN/Creatinine Ratio 29 (6-20) H Glucose Level 143 mg/dL (70-99) H Calcium Level 8.3 mg/dL (8.5-10.1) L Phosphorus Level 2.5 mg/dL (2.6-4.7) L Magnesium Level 1.9 mg/dL (1.8-2.4) Total Bilirubin 0.4 mg/dL (0.2-1.0) Aspartate Amino Transferase (AST) 11 U/L (15-37) L Alanine Aminotransferase (ALT) 18 U/L (16-63) Alkaline Phosphatase 72 U/L (46-116) Troponin I High Sensitivity 60 ng/L (4-75) ST-Sku-C-Type Natriuretic Peptide 638 pg/mL (0-449) H Total Protein 6.0 g/dL (6.4-8.2) L Albumin 3.3 g/dL (3.4-5.0) L Albumin/Globulin Ratio 1.2 (1.0-1.7) Lipase 48 U/L (73-393) L Stool Occult Blood Positive (NEG) Laboratory Tests 02/25/21 09:55 Laboratory Tests 02/25/21 09:55 (RONNY SMITH APRN) EKG: EKG: EKG performed at 941 by ED nursing staff shows a atrial fibrillation with rapid ventricular response heart rate 120 bpm, QTc interval 0.457, no acute STEMI appreciated, no ACS, no acute ischemia appreciated, EKG interpreted by ED attending physician Dr. Cedeño. (RONNY SMITH APRN) Radiology/Procedures: Radiology/Procedures: STATUS: REG ER ORD. PHYSICIAN: RONNY SMITH APRN REASON: Tachycardia PROCEDURE: CHEST AP ONLY AP chest. HISTORY: Tachycardia AP view was taken of the chest. There is arthritis in both shoulders. Heart is mildly prominent. There is no pleural effusion. There are no confluent infiltrates. IMPRESSION: 1. Mild cardiac enlargement. 2. No acute infiltrates. Electronically signed by: Robi Fermin MD (02/25/2021 10:16 AM) [id number] STATUS: REG ER ORD. PHYSICIAN: RONNY SMITH APRN REASON: rectal bleeding PROCEDURE: CT ABD PELV W/ IV CONTRST ONLY Examination: CT of the abdomen pelvis with IV contrast HISTORY: History of rectal bleeding COMPARISON: None available TECHNIQUE: Axial CT images of abdomen is performed with IV contrast. Coronal and sagittal reformats are performed Exposure: One or more of the following individualized dose reduction techniques were utilized for this examination: 1. Automated exposure control 2. Adjustment of the mA and/or kV according to patient size 3. Use of iterative reconstruction technique FINDINGS: Minimal bibasilar lung atelectasis. No evidence of free air identified in the abdomen. The liver, spleen, adrenals grossly appears unremarkable. Cholecystectomy changes identified. The stomach is mildly distended. Visualized pancreas grossly appears unremarkable. The small bowel is nondilated.. Feces and gas noted in the colon. Mild thickened appea etelvina of the wall of the rectum with mild surrounding fat stranding probably mild proctitis. Urinary bladder is mildly distended. Mildly enlarged prostate gland. Multiple bilateral renal cysts with the largest measuring 7.8 cm the right kidney measuring 8 Hounsfield units. Moderate aortic atherosclerosis. The gallbladder is mildly distended Moderate degenerative changes lumbar spine. IMPRESSION: 1. Mild thickened appearance of the wall of the rectum with mild surrounding fat stranding probably mild proctitis. 2. Multiple bilateral renal cysts. Electronically signed by: Augustine Morales MD (02/25/2021 11:13 AM) [id number] (RONNY SMITH APRN) Course & Med Decision Making: Course & Med Decision Making Pertinent Labs and Imaging studies reviewed. (See chart for details) 85-year-old male, vital signs reviewed, presents emergency room concerning dark stool at home this morning with generalized body aches and weakness. Physical examination concerning for lower GI bleed, patient does have pale conjunctiva of eyelids, patient is extremely hard of hearing, bedside 5-lead EKG appears to be A. fib RVR, will order EKG, troponin I high-sensitivity, NT proBNP, CBC, CMP, amylase, chest x-ray, type and screen. 1 L normal saline. Patient's hemoglobin 6.1 with hematocrit 19.3, will order CT abdomen pelvis with IV contrast, 2 units packed red blood cells, will treat A. fib RVR with Cardizem bolus and drip, discussed with patient recommendation for admission related to suspicion of lower GI bleed. Patient is amenable to ED admission planning. Called and discussed patient case and ED work-up with inpatient management physician Dr. Vo who agrees patient case warrants admission to the hospital, requested GI consult, will speak to GI prior to admission. Patient is awaiting telemetry unit bed from house visitor at this time. Called and discussed patient case and ED work-up with GI specialty AB Mariano, states will come to the emergency department for examination. (RONNY SMITH APRN) Dragon Disclaimer: Dragon Disclaimer: This electronic medical record was generated, in whole or in part, using a voice recognition dictation system. (RONNY SMITH APRN) Departure Departure Impression: Primary Impression: Lower GI bleed Additional Impressions: Atrial fibrillation with RVR Acute anemia Disposition: ADMITTED INPATIENT Admitting Physician: IRIS (Admit to Dr. Vo, underwriting director patient GI specialty consulted) (RONNY SMITH APRN) Condition: GUARDED Referrals: UNKNOWN PCP NAME (PCP) Attending Signature I have participated in the care of this patient and I have reviewed and agree with all pertinent clinical information above including history, exam, and recommendations. (KIKE CEDEÑO DO) RONNY SMITH APRN Feb 25, 2021 11:04 KIKE CEDEÑO DO Feb 25, 2021 13:06
--- NOTE | 2021-02-25 11:16 | RAD ---
Examination: CT of the abdomen pelvis with IV contrast HISTORY: History of rectal bleeding COMPARISON: None available TECHNIQUE: Axial CT images of abdomen is performed with IV contrast. Coronal and sagittal reformats a re performed Exposure: One or more of the following individualized dose reduction techniques were utilized for thi s examination: 1. Automated exposure control 2. Adjustment of the mA and/or kV according to patient size 3. Use of iterative reconstruction technique FINDINGS: Minimal bibasilar lung atelectasis. No evidence of free air identified in the abdomen. The liver, spleen, adrenals grossly appears unrema rkable. Cholecystectomy changes identified. The stomach is mildly distended. Visualized pancreas gina sly appears unremarkable. The small bowel is nondilated.. Feces and gas noted in the colon. Mild thic kened appearance of the wall of the rectum with mild surrounding fat stranding probably mild proctiti s. Urinary bladder is mildly distended. Mildly enlarged prostate gland. Multiple bilateral renal cyst s with the largest measuring 7.8 cm the right kidney measuring 8 Hounsfield units. Moderate aortic at herosclerosis. The gallbladder is mildly distended Moderate degenerative changes lumbar spine. IMPRESSION: 1. Mild thickened appearance of the wall of the rectum with mild surrounding fat stranding probably mild proctitis. 2. Multiple bilateral renal cysts. Electronically signed by: Augustine Morales MD (02/25/2021 11:13 AM) [id number]
[2021-02-25] MEDS ORDERED: ELECTROLYTE (NON-ICU) PROTOCOL. MC PRN (11:30)
[2021-02-25] MEDS ORDERED: CALCIUM CARBONATE 500 MG TAB.CHEW PO PRN (11:30)
[2021-02-25] MEDS ORDERED: ONDANSETRON PF 4 MG/2 ML VIAL. IVP PRN (11:30)
[2021-02-25] MEDS: PANTOPRAZOLE SODIUM IV DRIP 80 MG in IV NORMAL SALINE 100ML 100 ML IV PRN ×2 (12:06→22:48)
[2021-02-25 12:36] LABS: BILIRUBIN,URINE NEGATIVE (NEG); CLARITY,URINE CLEAR; COLOR,URINE YELLOW; NITRITE,URINE NEGATIVE (NEG); PROTEIN,URINE NEGATIVE (NEG-TRACE); UROBILINOGEN,URINE 0.2 mg/dL (0.2 mg/dL)
[2021-02-25 12:47] LABS: BACTERIA,URINE 0 /HPF (0-FEW); RBC,URINE 0 /HPF (0-2); WBC,URINE OCC /HPF (0-4)
[2021-02-25 12:56] LABS: INFLUENZA A PATIENT NEGATIVE (NEGATIVE); INFLUENZA B PATIENT NEGATIVE (NEGATIVE)
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
[2021-02-25] MEDS ORDERED: ACETAMINOPHEN 500 MG TABLET PO ONE (13:30)
--- NOTE | 2021-02-25 14:35 | PDOC1 ---
History and Physical Date of Service: DOS: DATE: 02/25/21 TIME: 14:29 Chief Complaint: Chief Complain: dark stool History of Present Illness: HPI: Patient is an 85-year-old male presents to the emergency room complaining of body aches for the past few days and had an episode of a black stool this morning. He has had a GI bleed in the past and said this is very similar; has actually had a few bowel resections per chart review. An overall poor historian but was able to give from chart review he has a history of A. fib on home warfarin that he is unsure if he is even takes his warfarin still. In the emergency room hemoglobin was found to be 6.0. There was a positive rectal exam. Received 2 units of blood and started in the emergency room. GI consulted. When I saw in the emergency and was resting. He was still feeling pretty fatigued but really not any other complaints. Past Medical/Surgical History: PMH/PSH: Chart review looks like A. fib hypothyroid hypertension hyperlipidemia Allergies: Allergies: Coded Allergies: No Known Drug Allergies (Unverified , 03/18/16) Family History: Family History: Patient uncertain Social History: Social History: Denies alcohol tobacco or drug use Current Medications: Current Medications Current Medications Sodium Chloride 1,000 ml @ 1,000 mls/hr 1X ONCE IV Last administered on at 10:52; Start 02/25/21 at 10:30; Stop 02/25/21 at 11:29; Status DC Diltiazem HCl 125 mg/Sodium Chloride 125 ml @ 5 mls/hr CONT PRN IV PER PROTOCOL Last administered on 02/25/21at 10:51; Start 02/25/21 at 10:30 Diltiazem HCl (Cardizem Iv Push) 10 mg 1X ONCE IVP Last administered on 02/25/21at 10:52; Start 02/25/21 at 10:30; Stop 02/25/21 at 10:40; Status DC Iohexol (Omnipaque 300 Mg/ml) 60 ml 1X ONCE IV Last administered on 02/25/21at 10:50; Start 02/25/21 at 10:45; Stop 02/25/21 at 10:46; Status DC Info (CONTRAST GIVEN -- Rx MONITORING) 1 each PRN DAILY PRN MC SEE COMMENTS; Start 02/25/21 at 10:45; Stop 02/27/21 at 10:44 Ondansetron HCl (Zofran) 4 mg PRN Q6HRS PRN IVP NAUSEA/VOMITING; Start 02/25/21 at 11:30 Calcium Carbonate/ Glycine (Tums) 500 mg PRN Q3HRS PRN PO UPSET STOMACH; Start 02/25/21 at 11:30 Zolpidem Tartrate (Ambien) 5 mg PRN QHS PRN PO INSOMNIA, MAY REPEAT IN 1HR; Start 02/25/21 at 11:30 Info (Non-Icu Electrolyte Protocol) 1 ea PRN DAILY PRN MC SEE COMMENTS; Start 02/25/21 at 11:30 Pantoprazole Sodium 80 mg/ Sodium Chloride 100 ml @ 10 mls/hr Q10H PRN IV GIB Last administered on 02/25/21at 12:06; Start 02/25/21 at 12:00 Acetaminophen (Tylenol) 1,000 mg 1X ONCE PO Last administered on 02/25/21at 13:48; Start 02/25/21 at 13:30; Stop 02/25/21 at 13:31; Status DC Vitamin D (Vitamin D3) 3,000 unit DAILY PO ; Start 02/26/21 at 09:00 Diltiazem HCl (Cardizem 24hr Cd) 120 mg DAILY PO ; Start 02/26/21 at 09:00 Finasteride (Proscar) 5 mg DAILY PO ; Start 02/26/21 at 09:00 Furosemide (Lasix) 20 mg DAILY PO ; Start 02/26/21 at 09:00 Gabapentin (Neurontin) 300 mg BID PO ; Start 02/25/21 at 21:00 Levothyroxine Sodium (Synthroid) 25 mcg DAILY06 PO ; Start 02/26/21 at 06:00 Tamsulosin HCl (Flomax) 0.4 mg DAILY PO ; Start 02/26/21 at 09:00 Lisinopril (Prinivil) 5 mg DAILY PO ; Start 02/26/21 at 09:00 Atorvastatin Calcium (Lipitor) 5 mg QHS PO ; Start 02/25/21 at 21:00 Active Scripts Active Vitamin B-1 (Thiamine Hcl) 100 Mg Tablet 100 Mg PO DAILY Coumadin (Warfarin Sodium) 7.5 Mg Tablet 5 Mg PO DAILY16 Synthroid (Levothyroxine Sodium) 25 Mcg Tablet 25 Mcg PO DAILY07 Diltiazem 24HR Cd (Diltiazem Hcl) 120 Mg Cap.er.24h 120 Mg PO DAILY Reported Quinine Sulfate 324 Mg Capsule 324 Mg PO Tramadol Hcl 50 Mg Tablet 50 Mg PO PRN Q8HRS PRN Tamsulosin Hcl 0.4 Mg Cap.er.24h 0.4 Mg PO DAILY Pravastatin Sodium 20 Mg Tablet 1 Tab PO QHS Omeprazole 40 Mg Capsule.dr 40 Mg PO DAILY Ketoconazole 15 Gm Cream..g. 1 Mary TP BID Gabapentin (Gabapentin) 300 Mg Capsule 300 Mg PO BID Furosemide 20 Mg Tablet 20 Mg PO DAILY Fosinopril Sodium 10 Mg Tablet 5 Mg PO DAILY Fish Oil 1,000 Mg Capsule (Burton-3 Fatty Acids/Fish Oil) 1 Each Capsule 1 Each PO BID Finasteride 5 Mg Tablet 5 Mg PO DAILY Vitamin D3 (Cholecalciferol (Vitamin D3)) 1,000 Unit Tablet 3 Tab PO DAILY Refresh Optive Eye Drops (Carboxymethylcellulos/Glycerin) 15 Ml Drops 1 Drop EACHEYE PRN QID PRN Acetaminophen 500 Mg Tablet 2 Tab PO PRN Q8HRS PRN ROS: Review of Systems Review of System Unless noted in HPI 14 point review of systems was negative Physical Exam: Vital Signs: Vital Signs Date Time Temp Pulse Resp B/P (MAP) Pulse Ox O2 Delivery O2 Flow Rate FiO2 02/25/21 13:22 101.0 113 24 144/63 (90) 100 Room Air 101.0 Physcial Exam: GEN: No apparent distress. Alert and oriented but poor historian HEENT: Normal cephalic, atraumatic, external auditory canals are patent EYES: Extraocular muscles are intact, pupil are equally round and reactive to light and accommodation MUSCULOSKELETAL: Well developed , well nourished, good range of motion ENDOCRINE: No thyromegaly was palpated LYMPHATICS: No cervical chain or axillary nodes were noted HEMATOPOIETIC: No bruising NECK: Supple, no JVD, no thyromegaly was noted LUNGS: Clear to auscultation in all lung rice without rhonchi or wheezing HEART: RRR, S!, S2 present. Peripheral pulses intact, no obvious murmurs noted ABDOMEN: Soft, nontender. Positive bowel sounds, no organomegaly, normal bowel sounds EXTREMITIES: Without clubbing, cyanosis, or edema. Pedal pulses intact. Negative Homans sign NEUROLOGIC: Normal speech and tone. A&O x 3, moves all extremities, no obvious focal deficits PSYCHIATRIC: Normal affect, normal mood. Stable SKIN: No ulcerations or rashes, good skin turgor, no jaundice VASCULAR: Good capillary refill, neurovascular bundle appears to be intact Labs: Labs: Laboratory Tests Test 02/25/21 09:55 02/25/21 10:22 02/25/21 12:14 02/25/21 12:18 White Blood Count 10.6 x10^3/uL (4.0-11.0) Red Blood Count 2.41 x10^6/uL (4.30-5.70) Hemoglobin 6.1 g/dL (13.0-17.5) Hematocrit 19.3 % (39.0-53.0) Mean Corpuscular Volume 80 fL (79-100) Mean Corpuscular Hemoglobin 25 pg (25-35) Mean Corpuscular Hemoglobin Concent 31 g/dL (31-37) Red Cell Distribution Width 18.5 % (11.5-14.5) Platelet Count 274 x10^3/uL (140-400) Neutrophils (%) (Auto) 76 % (31-73) Lymphocytes (%) (Auto) 15 % (24-48) Monocytes (%) (Auto) 8 % (0-9) Eosinophils (%) (Auto) 0 % (0-3) Basophils (%) (Auto) 0 % (0-3) Neutrophils # (Auto) 8.0 x10^3/uL (1.8-7.7) Lymphocytes # (Auto) 1.6 x10^3/uL (1.0-4.8) Monocytes # (Auto) 0.9 x10^3/uL (0.0-1.1) Eosinophils # (Auto) 0.0 x10^3/uL (0.0-0.7) Basophils # (Auto) 0.0 x10^3/uL (0.0-0.2) Prothrombin Time 15.1 SEC (11.7-14.0) Prothromb Time International Ratio 1.2 (0.8-1.1) Activated Partial Thromboplast Time 26 SEC (24-38) Sodium Level 139 mmol/L (136-145) Potassium Level 4.5 mmol/L (3.5-5.1) Chloride Level 105 mmol/L (98-107) Carbon Dioxide Level 19 mmol/L (21-32) Anion Gap 15 (6-14) Blood Urea Nitrogen 50 mg/dL (8-26) Creatinine 1.7 mg/dL (0.7-1.3) Estimated GFR (Cockcroft-Gault) 38.7 BUN/Creatinine Ratio 29 (6-20) Glucose Level 143 mg/dL (70-99) Calcium Level 8.3 mg/dL (8.5-10.1) Phosphorus Level 2.5 mg/dL (2.6-4.7) Magnesium Level 1.9 mg/dL (1.8-2.4) Iron Level 16 ug/dL (65-175) Total Iron Binding Capacity 355 ug/dL (250-450) Iron Saturation 5 % (15-34) Total Bilirubin 0.4 mg/dL (0.2-1.0) Aspartate Amino Transf (AST/SGOT) 11 U/L (15-37) Alanine Aminotransferase (ALT/SGPT) 18 U/L (16-63) Alkaline Phosphatase 72 U/L (46-116) Troponin I High Sensitivity 60 ng/L (4-75) XU-Zwb-B-Type Natriuretic Peptide 638 pg/mL (0-449) Total Protein 6.0 g/dL (6.4-8.2) Albumin 3.3 g/dL (3.4-5.0) Albumin/Globulin Ratio 1.2 (1.0-1.7) Lipase 48 U/L (73-393) Stool Occult Blood Positive (NEG) Influenza Type A Antigen Negative (NEGATIVE) Influenza Type B Antigen Negative (NEGATIVE) SARS-CoV-2 Antigen (Rapid) Negative (NEGATIVE) Urine Collection Type Unknown Urine Color Yellow Urine Clarity Clear Urine pH 5.0 (<5.0-8.0) Urine Specific [place] >=1.030 (1.000-1.030) Urine Protein Negative mg/dL (NEG-TRACE) Urine Glucose (UA) Negative mg/dL (NEG) Urine Ketones (Stick) Negative mg/dL (NEG) Urine Blood Negative (NEG) Urine Nitrite Negative (NEG) Urine Bilirubin Negative (NEG) Urine Urobilinogen Dipstick 0.2 mg/dL (0.2 mg/dL) Urine Leukocyte Esterase Negative (NEG) Urine RBC 0 /HPF (0-2) Urine WBC Occ /HPF (0-4) Urine Squamous Epithelial Cells Few /LPF Urine Bacteria 0 /HPF (0-FEW) Assessment/Plan Assessment/Plan GI bleed suspected upper, history of previous GI bleeds requiring actual bowel resection. History of atrial fibrillation questionable if on warfarin still, HTN, hypothyroid, -Presenting with unwell feeling for past few days and then dark stool this morning. Hemoglobin 6.0 -Transfused 2 units packed red blood cells -Continue to trend hemoglobin throughout the day and overnight -Transfuse as needed -Consult to GI -N.p.o. start Protonix drip -No known history varices to indicate starting octreotide -Hold home warfarin for now. May require cardiology consult for ongoing A. fib treatment especially given GI bleed history -Plan discussed with bedside RN. Justifications for Admission Other Justification LIZETH PRAKASH MD Feb 25, 2021 14:35
[2021-02-25] MEDS: ZOLPIDEM 5 MG TABLET. PO PRN (21:24)
[2021-02-25] MEDS: ATORVASTATIN CALCIUM 10 MG TABLET. PO SCH (21:25)
[2021-02-25] MEDS: GABAPENTIN 300 MG CAPSULE. PO SCH (21:25)
[2021-02-26] VITALS (13 sets, daily range): BP systolic 114–145; BP diastolic 56–67
[2021-02-26] MEDS: LEVOTHYROXINE 25 MCG TABLET. PO SCH (06:00)
[2021-02-26 06:24] LABS: RED BLOOD COUNT 2.39 x10^6/uL (4.30-5.70); WHITE BLOOD COUNT 8.3 x10^3/uL (4.0-11.0)
[2021-02-26 06:32] LABS: HEMATOCRIT 18.8 % (39.0-53.0)
[2021-02-26 06:45] LABS: ALBUMIN/GLOBULIN RATIO 1.1 (1.0-1.7); CALCIUM 8.2 mg/dL (8.5-10.1); CREATININE 1.5 mg/dL (0.7-1.3); GFR 44.7; POTASSIUM 4.6 mmol/L (3.5-5.1); TOTAL BILIRUBIN 0.6 mg/dL (0.2-1.0); TOTAL PROTEIN 5.8 g/dL (6.4-8.2)
--- NOTE | 2021-02-26 06:53 | EKG ---
[facility] [address] [place] [address] Test Date: 2021-02-25 Test Time: 09:41:29 Pat Name: ROQUE CARCAMO Department: Room: 4 Gender: M Cost Controller: : [id number] Requested By: RONNY SMITH Order Number: [id number] Reading MD: Mickey Walker MD Measurements Intervals [place] Rate: 120 P: [place]: QRS: 34 QRSD: 72 T: 217 QT: 320 QTc: 457 Interpretive Statements ATRIAL FIBRILLATION NON-SPECIFIC ST/T CHANGES Electronically Signed On 02-26-2021 8:44:58 [employer] MEMBER by Mickey Walker MD
--- NOTE | 2021-02-26 08:05 | PDOC ---
[employer] PROGRESS NOTE Date of Service DOS: DATE: 02/26/21 TIME: 07:57 Chief Complaint Chief Complaint GI bleed suspected upper, history of previous GI bleeds requiring actual bowel resection. HTN Hypothyroid, Anemia with GI bleed AFIB RVR - likely worsened by anemia. YAVAPAI-PRESCOTT HTN - controlled HLD ZULMA - likely vasomotor nephropathy, ay have some baseline CKD Likely chronic diastolic CHF in acute failure due to anemia and afib History of Present Illness History of Present Illness Mr Pickard is an 85yo w/ PMHx colon ca s/p resection, prostate ca, chronic afib, hypothyroidism, anxiety, hard of hearing who who presented to ED for fatigue weakness fall at home dark stools. With Hb 6.1 CR 1.7. Atrial fibrillation with RVR 02/26: Posttransfusion Hb 6 had several dark stools overnight another 2 units PRBC ordered heart rate is a little better controlled today. He overall notes that she has been feeling weak feels a little more energetic now. No chest pain little bit of shortness of breath with exertion. Vitals/I&O Vitals/I&O: Vital Signs Date Time Temp Pulse Resp B/P (MAP) Pulse Ox O2 Delivery O2 Flow Rate FiO2 02/26/21 02:39 98.0 96 18 145/65 (91) 100 Room Air 98.0 I & O 02/25/21 02/25/21 02/26/21 15:00 23:00 07:00 Intake Total 1000 ml 125 ml 0 ml Output Total 400 ml 475 ml Balance 1000 ml -275 ml -475 ml Physical Exam Lungs: Clear Labs Labs: Laboratory Tests Test 02/25/21 09:55 02/25/21 10:22 02/25/21 12:14 02/25/21 12:18 White Blood Count 10.6 x10^3/uL (4.0-11.0) Red Blood Count 2.41 x10^6/uL (4.30-5.70) Hemoglobin 6.1 g/dL (13.0-17.5) Hematocrit 19.3 % (39.0-53.0) Mean Corpuscular Volume 80 fL (79-100) Mean Corpuscular Hemoglobin 25 pg (25-35) Mean Corpuscular Hemoglobin Concent 31 g/dL (31-37) Red Cell Distribution Width 18.5 % (11.5-14.5) Platelet Count 274 x10^3/uL (140-400) Neutrophils (%) (Auto) 76 % (31-73) Lymphocytes (%) (Auto) 15 % (24-48) Monocytes (%) (Auto) 8 % (0-9) Eosinophils (%) (Auto) 0 % (0-3) Basophils (%) (Auto) 0 % (0-3) Neutrophils # (Auto) 8.0 x10^3/uL (1.8-7.7) Lymphocytes # (Auto) 1.6 x10^3/uL (1.0-4.8) Monocytes # (Auto) 0.9 x10^3/uL (0.0-1.1) Eosinophils # (Auto) 0.0 x10^3/uL (0.0-0.7) Basophils # (Auto) 0.0 x10^3/uL (0.0-0.2) Prothrombin Time 15.1 SEC (11.7-14.0) Prothromb Time International Ratio 1.2 (0.8-1.1) Activated Partial Thromboplast Time 26 SEC (24-38) Sodium Level 139 mmol/L (136-145) Potassium Level 4.5 mmol/L (3.5-5.1) Chloride Level 105 mmol/L (98-107) Carbon Dioxide Level 19 mmol/L (21-32) Anion Gap 15 (6-14) Blood Urea Nitrogen 50 mg/dL (8-26) Creatinine 1.7 mg/dL (0.7-1.3) Estimated GFR (Cockcroft-Gault) 38.7 BUN/Creatinine Ratio 29 (6-20) Glucose Level 143 mg/dL (70-99) Calcium Level 8.3 mg/dL (8.5-10.1) Phosphorus Level 2.5 mg/dL (2.6-4.7) Magnesium Level 1.9 mg/dL (1.8-2.4) Iron Level 16 ug/dL (65-175) Total Iron Binding Capacity 355 ug/dL (250-450) Iron Saturation 5 % (15-34) Total Bilirubin 0.4 mg/dL (0.2-1.0) Aspartate Amino Transf (AST/SGOT) 11 U/L (15-37) Alanine Aminotransferase (ALT/SGPT) 18 U/L (16-63) Alkaline Phosphatase 72 U/L (46-116) Troponin I High Sensitivity 60 ng/L (4-75) GK-Jsb-Z-Type Natriuretic Peptide 638 pg/mL (0-449) Total Protein 6.0 g/dL (6.4-8.2) Albumin 3.3 g/dL (3.4-5.0) Albumin/Globulin Ratio 1.2 (1.0-1.7) Lipase 48 U/L (73-393) Stool Occult Blood Positive (NEG) Influenza Type A Antigen Negative (NEGATIVE) Influenza Type B Antigen Negative (NEGATIVE) SARS-CoV-2 RNA (MELANIE) Negative (Negative) SARS-CoV-2 Antigen (Rapid) Negative (NEGATIVE) Urine Collection Type Unknown Urine Color Yellow Urine Clarity Clear Urine pH 5.0 (<5.0-8.0) Urine Specific [place] >=1.030 (1.000-1.030) Urine Protein Negative mg/dL (NEG-TRACE) Urine Glucose (UA) Negative mg/dL (NEG) Urine Ketones (Stick) Negative mg/dL (NEG) Urine Blood Negative (NEG) Urine Nitrite Negative (NEG) Urine Bilirubin Negative (NEG) Urine Urobilinogen Dipstick 0.2 mg/dL (0.2 mg/dL) Urine Leukocyte Esterase Negative (NEG) Urine RBC 0 /HPF (0-2) Urine WBC Occ /HPF (0-4) Urine Squamous Epithelial Cells Few /LPF Urine Bacteria 0 /HPF (0-FEW) Test 02/25/21 17:46 02/26/21 05:55 Fibrinogen 303 mg/dL (200-440) White Blood Count 8.3 x10^3/uL (4.0-11.0) Red Blood Count 2.39 x10^6/uL (4.30-5.70) Hemoglobin 6.0 g/dL (13.0-17.5) Hematocrit 18.8 % (39.0-53.0) Mean Corpuscular Volume 79 fL (79-100) Mean Corpuscular Hemoglobin 25 pg (25-35) Mean Corpuscular Hemoglobin Concent 32 g/dL (31-37) Red Cell Distribution Width 19.0 % (11.5-14.5) Platelet Count 211 x10^3/uL (140-400) Sodium Level 140 mmol/L (136-145) Potassium Level 4.6 mmol/L (3.5-5.1) Chloride Level 112 mmol/L (98-107) Carbon Dioxide Level 20 mmol/L (21-32) Anion Gap 8 (6-14) Blood Urea Nitrogen 37 mg/dL (8-26) Creatinine 1.5 mg/dL (0.7-1.3) Estimated GFR (Cockcroft-Gault) 44.7 BUN/Creatinine Ratio 25 (6-20) Glucose Level 129 mg/dL (70-99) Calcium Level 8.2 mg/dL (8.5-10.1) Total Bilirubin 0.6 mg/dL (0.2-1.0) Aspartate Amino Transf (AST/SGOT) 10 U/L (15-37) Alanine Aminotransferase (ALT/SGPT) 18 U/L (16-63) Alkaline Phosphatase 59 U/L (46-116) Total Protein 5.8 g/dL (6.4-8.2) Albumin 3.0 g/dL (3.4-5.0) Albumin/Globulin Ratio 1.1 (1.0-1.7) Assessment and Plan Assessmemt and Plan Problems Medical Problems: (1) Acute anemia Status: Acute (2) Atrial fibrillation with RVR Status: Acute (3) Lower GI bleed Status: Acute Comment Review of Relevant I have reviewed the following items juany (where applicable) has been applied. Medications: Current Medications Medications (Trade) Dose Ordered Sig/Peter Route PRN Reason Start Time Stop Time Status Last Admin Dose Admin Sodium Chloride 1,000 ml @ 1,000 mls/hr 1X ONCE IV 02/25/21 10:30 02/25/21 11:29 DC 02/25/21 10:52 Diltiazem HCl 125 mg/Sodium Chloride 125 ml @ 5 mls/hr CONT PRN IV PER PROTOCOL 02/25/21 10:30 02/25/21 22:48 Diltiazem HCl (Cardizem Iv Push) 10 mg 1X ONCE IVP 02/25/21 10:30 02/25/21 10:40 DC 02/25/21 10:52 Iohexol (Omnipaque 300 Mg/ml) 60 ml 1X ONCE IV 02/25/21 10:45 02/25/21 10:46 DC 02/25/21 10:50 Zolpidem Tartrate (Ambien) 5 mg PRN QHS PRN PO INSOMNIA, MAY REPEAT IN 1HR 02/25/21 11:30 02/25/21 21:24 Pantoprazole Sodium 80 mg/ Sodium Chloride 100 ml @ 10 mls/hr Q10H PRN IV GIB 02/25/21 12:00 02/25/21 22:48 Acetaminophen (Tylenol) 1,000 mg 1X ONCE PO 02/25/21 13:30 02/25/21 13:31 DC 02/25/21 13:48 Justifications for Admission Other Justification LIZETH MENDEZ MD Feb 26, 2021 08:05
[2021-02-26] MEDS: PANTOPRAZOLE SODIUM IV DRIP 80 MG in IV NORMAL SALINE 100ML 100 ML IV PRN (08:16)
[2021-02-26] MEDS: TAMSULOSIN 0.4 MG CAP.ER.24H. PO SCH (09:00)
[2021-02-26] MEDS: LISINOPRIL 5 MG TABLET. PO SCH (09:00)
[2021-02-26] MEDS: GABAPENTIN 300 MG CAPSULE. PO SCH ×2 (09:00→21:15)
[2021-02-26] MEDS: FUROSEMIDE 20 MG TABLET PO SCH (09:00)
[2021-02-26] MEDS: FINASTERIDE 5 MG TABLET. PO SCH (09:00)
[2021-02-26] MEDS: CHOLECALCIFEROL (VITAMIN D3) 1,000 UNIT TABLET PO SCH (09:00)
[2021-02-26] MEDS ORDERED: FUROSEMIDE 20 MG/2 ML VIAL. IVP ONE ×2 (11:15→13:00)
--- NOTE | 2021-02-26 11:22 | PDOC2 ---
ALVINO BARAHONA RECHECKER 02/26/21 1122: CARDIAC CONSULT DATE OF CONSULT Date of Consult DATE: 02/26/21 TIME: 11:03 REASON FOR CONSULT Reason for Consult: AFIB, GI bleed REFERRING PHYSICIAN Referring Physician: Kameron SOURCE Source: Chart review, Patient HISTORY OF PRESENT ILLNESS HISTORY OF PRESENT ILLNESS This is an 85 yo male admitted for body aches and weakness. Reports that he has been having dark stools. Denies any fever or chills. He was taking blood thinners for afib. He has hx of bowel resection. NO chest pain or SOA. No recent falls or injury. Further revelaed that he was anemic and has received blood transfusion. He is a poor historian. PAST MEDICAL HISTORY Cardiovascular: AFIB, HTN, Hyperlipidemia CENTRAL NERVOUS SYSTEM: Migraine GI: GERD Heme/Onc: Cancer (prostate, colon) Musculoskeletal: Osteoarthritis ENT: Other ([place]) Renal/: Other (renal cyst) Endocrine: Hypothyroidism Dermatology: Other (skin CA) PAST SURGICAL HISTORY Past Surgical History: Cholecystectomy, Other (bowel resection) FAMILY HISTORY Family History: Family History Unknown SOCIAL HISTORY Smoke: Quit ALCOHOL: other (past heavy ETOH use) Drugs: None Lives: with Family CURRENT MEDICATIONS CURRENT MEDICATIONS Current Medications Medications (Trade) Dose Ordered Sig/Peter Route PRN Reason Start Time Stop Time Status Last Admin Dose Admin Zolpidem Tartrate (Ambien) 5 mg PRN QHS PRN PO INSOMNIA, MAY REPEAT IN 1HR 02/25/21 11:30 02/25/21 21:24 Pantoprazole Sodium 80 mg/ Sodium Chloride 100 ml @ 10 mls/hr Q10H PRN IV GIB 02/25/21 12:00 02/26/21 08:16 Acetaminophen (Tylenol) 1,000 mg 1X ONCE PO 02/25/21 13:30 02/25/21 13:31 DC 02/25/21 13:48 ALLERGIES ALLERGIES: Coded Allergies: No Known Drug Allergies (Unverified , 03/18/16) ROS Review of System limited poor historian and extremely [place] PHYSICAL EXAM General: Alert, Cooperative, No acute distress HEENT: Atraumatic, Mucous membr. moist/pink, Other ([place]) Lungs: Other (diminshed bases) Heart: Other (AFIB, distant heart sounds) Abdomen: Soft, No tenderness Extremities: No cyanosis, Other (1+ bilateral LE pitting edema) Skin: No breakdown, Other (pale) Neuro: Normal speech, Sensation intact Psych/Mental Status: Mental status NL, Mood NL MUSCULOSKELETAL: Osteoarthritic changes both hands VITALS/I&O VITALS/I&O: Vital Signs Date Time Temp Pulse Resp B/P (MAP) Pulse Ox O2 Delivery O2 Flow Rate FiO2 02/26/21 10:13 98.5 77 16 114/57 98.5 02/26/21 07:00 99 Room Air I & O 02/25/21 02/25/21 02/26/21 15:00 23:00 07:00 Intake Total 1000 ml 125 ml 0 ml Output Total 400 ml 475 ml Balance 1000 ml -275 ml -475 ml LABS Lab: Laboratory Tests Test 02/25/21 12:14 02/25/21 12:18 02/25/21 17:46 02/26/21 05:55 Influenza Type A Antigen Negative (NEGATIVE) Influenza Type B Antigen Negative (NEGATIVE) SARS-CoV-2 RNA (MELANIE) Negative (Negative) SARS-CoV-2 Antigen (Rapid) Negative (NEGATIVE) Urine Collection Type Unknown Urine Color Yellow Urine Clarity Clear Urine pH 5.0 (<5.0-8.0) Urine Specific [place] >=1.030 (1.000-1.030) Urine Protein Negative mg/dL (NEG-TRACE) Urine Glucose (UA) Negative mg/dL (NEG) Urine Ketones (Stick) Negative mg/dL (NEG) Urine Blood Negative (NEG) Urine Nitrite Negative (NEG) Urine Bilirubin Negative (NEG) Urine Urobilinogen Dipstick 0.2 mg/dL (0.2 mg/dL) Urine Leukocyte Esterase Negative (NEG) Urine RBC 0 /HPF (0-2) Urine WBC Occ /HPF (0-4) Urine Squamous Epithelial Cells Few /LPF Urine Bacteria 0 /HPF (0-FEW) Fibrinogen 303 mg/dL (200-440) White Blood Count 8.3 x10^3/uL (4.0-11.0) Red Blood Count 2.39 x10^6/uL (4.30-5.70) L Hemoglobin 6.0 g/dL (13.0-17.5) *L Hematocrit 18.8 % (39.0-53.0) *L Mean Corpuscular Volume 79 fL (79-100) Mean Corpuscular Hemoglobin 25 pg (25-35) Mean Corpuscular Hemoglobin Concent 32 g/dL (31-37) Red Cell Distribution Width 19.0 % (11.5-14.5) H Platelet Count 211 x10^3/uL (140-400) Sodium Level 140 mmol/L (136-145) Potassium Level 4.6 mmol/L (3.5-5.1) Chloride Level 112 mmol/L (98-107) H Carbon Dioxide Level 20 mmol/L (21-32) L Anion Gap 8 (6-14) Blood Urea Nitrogen 37 mg/dL (8-26) H Creatinine 1.5 mg/dL (0.7-1.3) H Estimated GFR (Cockcroft-Gault) 44.7 BUN/Creatinine Ratio 25 (6-20) H Glucose Level 129 mg/dL (70-99) H Calcium Level 8.2 mg/dL (8.5-10.1) L Total Bilirubin 0.6 mg/dL (0.2-1.0) Aspartate Amino Transferase (AST) 10 U/L (15-37) L Alanine Aminotransferase (ALT) 18 U/L (16-63) Alkaline Phosphatase 59 U/L (46-116) Total Protein 5.8 g/dL (6.4-8.2) L Albumin 3.0 g/dL (3.4-5.0) L Albumin/Globulin Ratio 1.1 (1.0-1.7) Laboratory Tests 02/26/21 05:55 Laboratory Tests 02/26/21 05:55 ECHOCARDIOGRAM ECHOCARDIOGRAM <Conclusion> Unable to assess left ventricular diastolic function due to atrial fibrillation. There is mild concentric left ventricular hypertrophy. The left ventricular systolic function is normal and the ejection fraction is within normal range. The Ejection Fraction is 50%. The right ventricular systolic function is impaired The left atrium size is normal. The right atrium size is normal. The aortic valve is mildly sclerotic. Doppler and Color Flow revealed trace mitral regurgitation. Doppler and Color Flow revealed trace tricuspid regurgitation. The pulmonary artery systolic pressure is estimated at 39 mmHg. There is mild pulmonary hypertension. The pulmonic valve is not well visualized. There is a small pericardial effusion. DATE: 03/19/16 8386 ASSESSMENT/PLAN ASSESSMENT/PLAN 1. Anemia with GI bleed 2. AFIB RVR with associated anemia. Rate better 3. Severe [place] 4. HTN: controlled 5. HLP 6. ZULMA vs CKD 7. suspect chronic diastolic CHF Recommendations [facility]. [facility]. Will obtain T[facility] 2. Low dose lasix between transfusions 3. Continue cardizem drip while NPO 4. Not an anticoagulation candidate currently. Await GI workup and will consider low does ASA therapy pending GI w/u 5. Referral for LAAO JORDY HANSON MD 02/27/21 0600: CARDIAC CONSULT ASSESSMENT/PLAN ASSESSMENT/PLAN Patient seen and examined. Agree with RAW CHEESE WORKER's assessment and plan. Atrial fibrillation rate better controlled with cardizem He is probably a poor candidate for watermelon inspector anticoagulation Consider outpatient referral for left atrial appendage closure Continue workup for anemia/GIB per GI team Thank you for your consultation ALVINO BARAHONA APRN Feb 26, 2021 11:22 JORDY HANSON MD Feb 27, 2021 06:00
--- NOTE | 2021-02-26 11:28 | PDOC ---
Date of Service: DATE: 02/26/21 TIME: 11:15 Subjective: Subjective: Was told he was going to have a colonoscopy. Denies bleeding and pain but "all I know is that I had blood all over my bed." Wants water. Now indicates has has had 6-7 EGDs and colonoscopies. "The last time the doctor said 'no more!'" Indicates everything done at [place]. Also says "nothing was found" during previous resections. Asks if surgery could be done to just look at his intestines. Mentions he still feels weak. Objective: Objective: No obvious bleeding per nurse. Transfusions ongoing. Vital Signs: Vital Signs Date Time Temp Pulse Resp B/P (MAP) Pulse Ox O2 Delivery O2 Flow Rate FiO2 02/26/21 10:13 98.5 77 16 114/57 98.5 02/26/21 07:00 99 Room Air Labs: Laboratory Tests Test 02/25/21 12:14 02/25/21 12:18 02/25/21 17:46 02/26/21 05:55 Influenza Type A Antigen Negative Influenza Type B Antigen Negative SARS-CoV-2 RNA (MELANIE) Negative SARS-CoV-2 Antigen (Rapid) Negative Urine Collection Type Unknown Urine Color Yellow Urine Clarity Clear Urine pH 5.0 Urine Specific [place] >=1.030 Urine Protein Negative mg/dL Urine Glucose (UA) Negative mg/dL Urine Ketones (Stick) Negative mg/dL Urine Blood Negative Urine Nitrite Negative Urine Bilirubin Negative Urine Urobilinogen Dipstick 0.2 mg/dL Urine Leukocyte Esterase Negative Urine RBC 0 /HPF Urine WBC Occ /HPF Urine Squamous Epithelial Cells Few /LPF Urine Bacteria 0 /HPF Fibrinogen 303 mg/dL White Blood Count 8.3 x10^3/uL Red Blood Count 2.39 x10^6/uL Hemoglobin 6.0 g/dL Hematocrit 18.8 % Mean Corpuscular Volume 79 fL Mean Corpuscular Hemoglobin 25 pg Mean Corpuscular Hemoglobin Concent 32 g/dL Red Cell Distribution Width 19.0 % Platelet Count 211 x10^3/uL Sodium Level 140 mmol/L Potassium Level 4.6 mmol/L Chloride Level 112 mmol/L Carbon Dioxide Level 20 mmol/L Anion Gap 8 Blood Urea Nitrogen 37 mg/dL Creatinine 1.5 mg/dL Estimated GFR (Cockcroft-Gault) 44.7 BUN/Creatinine Ratio 25 Glucose Level 129 mg/dL Calcium Level 8.2 mg/dL Total Bilirubin 0.6 mg/dL Aspartate Amino Transf (AST/SGOT) 10 U/L Alanine Aminotransferase (ALT/SGPT) 18 U/L Alkaline Phosphatase 59 U/L Total Protein 5.8 g/dL Albumin 3.0 g/dL Albumin/Globulin Ratio 1.1 BLOOD CULTURE Preliminary NO GROWTH AFTER 1 DAY PE: GEN: NAD - appears more comfortable today LUNGS: clear anteriorly HEART: irregular - regular rate today ABD: S/ND/NT NEURO/PSYCH: A & O 3 A/P: Weakness, ?melena ALICIA, A Fib, CKD ?h/o colon cancer and resection(s) COVID negative -- Hearing loss limits communication. Also suspect he's a little fuzzy on his past medical history - now seems to indicate lots of past scopes. No recurrent bleeding per pt, but Hgb not improved so more transfusions ordered. He's asking to drink - will d/w Dr. Gooden. Continue PPI. Unfortunately no records or med list received yet. Justicifation of Admission Dx: Justifications for Admission: Justification of Admission Dx: Yes SHERRI PLASCENCIA Feb 26, 2021 11:27
--- NOTE | 2021-02-26 12:45 | NUR ---
SS following for discharge planning. SS reviewed pt chart and discussed with pt RN. Pt is from home and is currently on room air. COVID19 negative. Cardiology and GI following. Pt on Cardizem and Protonix drip. Pt on IV Lasix. Pt having black tarry stools. GI bleed. Pt getting blood today. SS will continue to follow for discharge planning.
[2021-02-26 15:39] LABS: HEMATOCRIT 27.1 % (39.0-53.0); HEMOGLOBIN 8.7 g/dL (13.0-17.5); RED BLOOD COUNT 3.3 x10^6/uL (4.30-5.70); RED CELL DISTRIBUTION WIDTH 18.7 % (11.5-14.5); WHITE BLOOD COUNT 8.5 x10^3/uL (4.0-11.0)
[2021-02-26] MEDS: PANTOPRAZOLE 40 MG TABLET.DR. PO SCH (18:06)
--- NOTE | 2021-02-26 19:45 | NUR ---
PT IN BED ASSESSMENT COMPLETED VSS POC EXPLAINED PT REORIENTED TO SURROUNDINGS AND CALL LIGHT BED ALARM SET WILL RESUME CARE AND CONTINUE TO MONITOR PT.
[2021-02-26] MEDS: ZOLPIDEM 5 MG TABLET. PO PRN (21:15)
[2021-02-26] MEDS: ATORVASTATIN CALCIUM 10 MG TABLET. PO SCH (21:15)
[2021-02-27] VITALS (7 sets, daily range): BP systolic 106–144; BP diastolic 55–64
[2021-02-27] MEDS: LEVOTHYROXINE 25 MCG TABLET. PO SCH (05:50)
[2021-02-27] MEDS: PANTOPRAZOLE 40 MG TABLET.DR. PO SCH ×2 (05:50→17:36)
[2021-02-27 08:17] LABS: HEMATOCRIT 23.7 % (39.0-53.0); HEMOGLOBIN 7.8 g/dL (13.0-17.5); RED BLOOD COUNT 2.86 x10^6/uL (4.30-5.70); RED CELL DISTRIBUTION WIDTH 18.3 % (11.5-14.5); WHITE BLOOD COUNT 8.7 x10^3/uL (4.0-11.0)
[2021-02-27 08:44] LABS: CALCIUM 8.2 mg/dL (8.5-10.1); CREATININE 1.2 mg/dL (0.7-1.3); GFR 57.8
[2021-02-27 08:55] LABS: POTASSIUM 4.3 mmol/L (3.5-5.1)
[2021-02-27] MEDS: GABAPENTIN 300 MG CAPSULE. PO SCH ×2 (08:59→21:19)
[2021-02-27] MEDS: TAMSULOSIN 0.4 MG CAP.ER.24H. PO SCH (09:00)
[2021-02-27] MEDS: FINASTERIDE 5 MG TABLET. PO SCH (09:00)
[2021-02-27] MEDS: FUROSEMIDE 20 MG TABLET PO SCH (09:00)
[2021-02-27] MEDS: CHOLECALCIFEROL (VITAMIN D3) 1,000 UNIT TABLET PO SCH (09:00)
[2021-02-27] MEDS: LISINOPRIL 5 MG TABLET. PO SCH (09:00)
--- NOTE | 2021-02-27 10:13 | PDOC ---
[employer] PROGRESS NOTE Date of Service DOS: DATE: 02/27/21 TIME: 10:12 Chief Complaint Chief Complaint GI bleed suspected upper, history of previous GI bleeds requiring actual bowel resection. HTN Hypothyroid, Anemia with GI bleed AFIB RVR - likely worsened by anemia. C[place] HTN - controlled HLD ZULMA - likely vasomotor nephropathy, ay have some baseline CKD Likely chronic diastolic CHF in acute failure due to anemia and afib History of Present Illness History of Present Illness Mr Pickard is an 85yo w/ PMHx colon ca s/p resection, prostate ca, chronic afib, hypothyroidism, anxiety, hard of hearing who who presented to ED for fatigue weakness fall at home dark stools. With Hb 6.1 CR 1.7. Atrial fibrillation with RVR 02/26: Posttransfusion Hb 6 had several dark stools overnight another 2 units PRBC ordered heart rate is a little better controlled today. He overall notes that she has been feeling weak feels a little more energetic now. No chest pain little bit of shortness of breath with exertion. 02/27: Posttransfusion Hb 7.8. Had multiple maroon stools overnight did not sleep well. No shortness of breath or chest pain. Rate controlled A. fib on telemetry n.p.o. for EGD this afternoon. Vitals/I&O Vitals/I&O: Vital Signs Date Time Temp Pulse Resp B/P (MAP) Pulse Ox O2 Delivery O2 Flow Rate FiO2 02/27/21 09:07 79 126/80 02/27/21 07:00 97.8 18 95 Room Air 97.8 I & O 02/26/21 02/26/21 02/27/21 15:00 23:00 07:00 Intake Total 35 ml 993.7 ml 200 ml Output Total 300 ml 1000 ml 375 ml Balance -265 ml -6.3 ml -175 ml Physical Exam General: Alert, Cooperative, No acute distress Heart: Other (AFIB, distant heart sounds) Lungs: Clear Abdomen: Soft, No tenderness Extremities: No cyanosis, Other (1+ bilateral LE pitting edema) Skin: No breakdown, Other (pale) Labs Labs: Laboratory Tests Test 02/26/21 15:20 02/27/21 04:00 White Blood Count 8.5 x10^3/uL (4.0-11.0) 8.7 x10^3/uL (4.0-11.0) Red Blood Count 3.30 x10^6/uL (4.30-5.70) 2.86 x10^6/uL (4.30-5.70) Hemoglobin 8.7 g/dL (13.0-17.5) 7.8 g/dL (13.0-17.5) Hematocrit 27.1 % (39.0-53.0) 23.7 % (39.0-53.0) Mean Corpuscular Volume 82 fL (79-100) 83 fL (79-100) Mean Corpuscular Hemoglobin 26 pg (25-35) 27 pg (25-35) Mean Corpuscular Hemoglobin Concent 32 g/dL (31-37) 33 g/dL (31-37) Red Cell Distribution Width 18.7 % (11.5-14.5) 18.3 % (11.5-14.5) Platelet Count 227 x10^3/uL (140-400) 180 x10^3/uL (140-400) Sodium Level 144 mmol/L (136-145) Potassium Level 4.3 mmol/L (3.5-5.1) Chloride Level 111 mmol/L (98-107) Carbon Dioxide Level 23 mmol/L (21-32) Anion Gap 10 (6-14) Blood Urea Nitrogen 25 mg/dL (8-26) Creatinine 1.2 mg/dL (0.7-1.3) Estimated GFR (Cockcroft-Gault) 57.8 Glucose Level 96 mg/dL (70-99) Calcium Level 8.2 mg/dL (8.5-10.1) Assessment and Plan Assessmemt and Plan Problems Medical Problems: (1) Acute anemia Status: Acute (2) Atrial fibrillation with RVR Status: Acute (3) Lower GI bleed Status: Acute Comment Review of Relevant I have reviewed the following items juany (where applicable) has been applied. Medications: Current Medications Medications (Trade) Dose Ordered Sig/Peter Route PRN Reason Start Time Stop Time Status Last Admin Dose Admin Furosemide (Lasix) 20 mg 1X ONCE IVP 02/26/21 11:15 02/26/21 11:24 DC 02/26/21 13:11 Pantoprazole Sodium (Protonix) 40 mg BIDAC PO 02/26/21 16:30 1/21/22 05:50 Justifications for Admission Other Justification LIZETH MENDEZ MD Feb 27, 2021 10:13
--- NOTE | 2021-02-27 10:20 | PDOC ---
Date of Service: DATE: 02/27/21 TIME: 10:15 Subjective: Subjective: Didn't have a very good night - "they were so nice to clean me up." Didn't see color of stools. No abd pain, still feels weak. Tolerating clears. Objective: Objective: D/w nurse - senior maintenance machinist reported two "black tarry" stools. Vital Signs: Vital Signs Date Time Temp Pulse Resp B/P (MAP) Pulse Ox O2 Delivery O2 Flow Rate FiO2 02/27/21 09:07 79 126/80 02/27/21 07:00 97.8 18 95 Room Air 97.8 Labs: Laboratory Tests Test 02/26/21 15:20 02/27/21 04:00 White Blood Count 8.5 x10^3/uL 8.7 x10^3/uL Red Blood Count 3.30 x10^6/uL 2.86 x10^6/uL Hemoglobin 8.7 g/dL 7.8 g/dL Hematocrit 27.1 % 23.7 % Mean Corpuscular Volume 82 fL 83 fL Mean Corpuscular Hemoglobin 26 pg 27 pg Mean Corpuscular Hemoglobin Concent 32 g/dL 33 g/dL Red Cell Distribution Width 18.7 % 18.3 % Platelet Count 227 x10^3/uL 180 x10^3/uL Sodium Level 144 mmol/L Potassium Level 4.3 mmol/L Chloride Level 111 mmol/L Carbon Dioxide Level 23 mmol/L Anion Gap 10 Blood Urea Nitrogen 25 mg/dL Creatinine 1.2 mg/dL Estimated GFR (Cockcroft-Gault) 57.8 Glucose Level 96 mg/dL Calcium Level 8.2 mg/dL PE: GEN: NAD - wearing earphones/amplifier which is very helpful LUNGS: CTAB HEART: irregular ABD: NABS, S/ND/NT NEURO/PSYCH: A & O 3 A/P: Melena/hematochezia ALICIA, A Fib, CKD ?h/o colon cancer and resection(s) - unclear history, records requested from [place] on 02/25/21 COVID negative -- D/w Dr. Gooden - proceed w/ EGD this afternoon r/o UGI source - NPO now. D/w nurse - unclear if records requested from [place]? - we'll ask again. Follow labs, transfuse as needed. Continue PPI. Justicifation of Admission Dx: Justifications for Admission: Justification of Admission Dx: Yes SHERRI PLASCENCIA Feb 27, 2021 10:19
--- NOTE | 2021-02-27 11:14 | PDOC ---
ALVINO BARAHONA GAMBRELER 02/27/21 1114: CARDIO Progress Notes Date and Time Date of Service 02/27/2021 Time of Evaluation 0935 Subjective Subjective: No Chest Pain, No shortness of breath, No Palpitations Vitals Vitals Vital Signs Date Time Temp Pulse Resp B/P (MAP) Pulse Ox O2 Delivery O2 Flow Rate FiO2 02/27/21 09:07 79 126/80 02/27/21 07:00 97.8 18 95 Room Air 97.8 Weight Weight [ ] Input and Output Intake and Output Intake and Output 02/27/21 07:00 Intake Total 1228.7 ml Output Total 1675 ml Balance -446.3 ml Intake Oral 1110 ml IV Total 83.7 ml Blood Product IV Normal Saline Flush 35 ml Output Urine Total 1675 ml Laboratory Labs Laboratory Tests Test 02/26/21 15:20 02/27/21 04:00 White Blood Count 8.5 x10^3/uL (4.0-11.0) 8.7 x10^3/uL (4.0-11.0) Red Blood Count 3.30 x10^6/uL (4.30-5.70) 2.86 x10^6/uL (4.30-5.70) Hemoglobin 8.7 g/dL (13.0-17.5) 7.8 g/dL (13.0-17.5) Hematocrit 27.1 % (39.0-53.0) 23.7 % (39.0-53.0) Mean Corpuscular Volume 82 fL (79-100) 83 fL (79-100) Mean Corpuscular Hemoglobin 26 pg (25-35) 27 pg (25-35) Mean Corpuscular Hemoglobin Concent 32 g/dL (31-37) 33 g/dL (31-37) Red Cell Distribution Width 18.7 % (11.5-14.5) 18.3 % (11.5-14.5) Platelet Count 227 x10^3/uL (140-400) 180 x10^3/uL (140-400) Sodium Level 144 mmol/L (136-145) Potassium Level 4.3 mmol/L (3.5-5.1) Chloride Level 111 mmol/L (98-107) Carbon Dioxide Level 23 mmol/L (21-32) Anion Gap 10 (6-14) Blood Urea Nitrogen 25 mg/dL (8-26) Creatinine 1.2 mg/dL (0.7-1.3) Estimated GFR (Cockcroft-Gault) 57.8 Glucose Level 96 mg/dL (70-99) Calcium Level 8.2 mg/dL (8.5-10.1) Microbiology Micro Microbiology 02/25/21 Blood Culture - Preliminary, Resulted NO GROWTH AFTER 2 DAYS Physical Exam HEENT: Neck Supple W Full Motion, Other ([place]) Chest: Symmetric LUNGS: Other (diminished bases) Heart: irregularly irregular (AFIB) Abdomen: Soft N/T Extremities: No Calf Tenderness Neurology: alert, oriented, follow commands Assessment Assessment 1. Anemia with GI bleed: post transfusion. EGD today per GI 2. AFIB RVR with associated anemia. Rate better 3. Severe [place] 4. HTN: controlled 5. HLP 6. ZULMA vs CKD: much better 7. Chronic diastolic CHF: compensated Recommendations 1. [facility] Will [facility] 2. Continue cardizem drip while NPO 3. Not an anticoagulation candidate currently. Await GI workup and will consider low dose ASA therapy pending GI w/u 4. Referral for LAAO Justicifation of Admission Dx: Justifications for Admission: Justification of Admission Dx: Yes JORDY HANSON MD 02/27/211651: CARDIO Progress Notes Assessment Assessment Patient seen and examined. Agree with WILDLIFE REMOVAL SPECIALIST's assessment and plan. Atrial fibrillation rate better controlled with cardizem He is probably a poor candidate for community health representative anticoagulation Consider outpatient referral for left atrial appendage closure Continue workup for anemia/GIB per GI team ALVINO BARAHONA APRN Feb 27, 2021 11:14 JORDY HANSON MD Feb 27, 2021 16:52
[2021-02-27] MEDS ORDERED: ASPI325T8 PO (11:52)
[2021-02-27] MEDS ORDERED: GABA300C18 PO (11:52)
[2021-02-27] MEDS ORDERED: ATEN50TA PO (11:52)
[2021-02-27] MEDS ORDERED: OMEG-152 PO (11:52)
[2021-02-27] MEDS ORDERED: IV RINGERS,LACTATED 1000ML 1,000 ML IV ONE (12:30)
--- NOTE | 2021-02-27 13:19 | PDOC4 ---
PROCEDURE Procedure EGD Indication: GI bleeding, source unclear. Meds: per anesthesia Findings: E--Some irregularity of z-line c/w some degree of reflux, not erosive. G--some prepyloric erosions, otherwise normal. D--8mm ulcer in apex of bulb with clean base, otherwise normal to second portion. --no biopsies for H.pylori as negative per [facility] records in the past. --location of ulcer suggests may be NSAID-induced lesion. Beatriz. well. IMP: DU GERD REC: PO PPI. Continue clears over the weekend and monitor for further bleeding. If further bloody stools consider nuclear bleeding scan. If no bleeding, advance diet.- RONYN LY MD Feb 27, 2021 13:19
--- NOTE | 2021-02-27 13:21 | NUR ---
SS following for discharge planning. SS reviewed pt chart and discussed with pt RN. Pt is currently on room air. COVID19 negative. Cardiology and GI following. Pt having EGD today. SS will continue to follow for discharge planning.
[2021-02-27] MEDS ORDERED: OMEP20CA16 PO (19:45)
[2021-02-27] MEDS ORDERED: PRAV40TA2 PO (19:45)
[2021-02-27] MEDS: ATORVASTATIN CALCIUM 10 MG TABLET. PO SCH (21:19)
[2021-02-27] MEDS: ZOLPIDEM 5 MG TABLET. PO PRN (22:59)
[2021-02-28] VITALS (11 sets, daily range): BP systolic 111–153; BP diastolic 55–69
[2021-02-28 05:17] LABS: HEMATOCRIT 22.2 % (39.0-53.0); HEMOGLOBIN 7.1 g/dL (13.0-17.5); RED BLOOD COUNT 2.7 x10^6/uL (4.30-5.70); RED CELL DISTRIBUTION WIDTH 18.6 % (11.5-14.5); WHITE BLOOD COUNT 5.5 x10^3/uL (4.0-11.0)
[2021-02-28] MEDS: LEVOTHYROXINE 25 MCG TABLET. PO SCH (06:22)
[2021-02-28] MEDS: FINASTERIDE 5 MG TABLET. PO SCH (07:55)
--- NOTE | 2021-02-28 09:04 | PDOC ---
CARDIOLOGY PROGRESS NOTE SUBJECTIVE: No new events overnight. EGD demonstrated duodenal ulcer. OBJECTIVE: Vital Signs/I&O: Vital Signs Date Time Temp Pulse Resp B/P (MAP) Pulse Ox O2 Delivery O2 Flow Rate FiO2 02/28/21 07:49 97.5 91 20 111/55 (73) 95 Room Air 97.5 02/27/21 13:12 5 I & O 02/27/21 02/27/21 02/28/21 15:00 23:00 07:00 Intake Total 500 ml 840 ml 1090 ml Output Total 550 ml 250 ml Balance 500 ml 290 ml 840 ml Objective: The patient appeared well nourished and normally developed. Head exam is unremarkable. No scleral icterus or corneal arcus noted. Neck is without jugular venous distension, thyromegaly, or carotid bruits. Carotid upstrokes are brisk bilaterally. Lungs are clear to auscultation and percussion. Cardiac exam reveals the PMI to be normally sized and situated. Rhythm is regular. First and second heart sounds normal. No murmurs, rubs or gallops. Abdominal exam reveals normal bowel sounds, no masses, no organomegaly and no aortic enlargement. Extremities are nonedematous and both femoral and pedal pulses are normal. Msk: No traumua Neuro: No focal deficits CURRENT MEDICATIONS: Diltiazem 120 mg daily DIAGNOSTIC TESTING: Labs: Laboratory studies reviewed ASSESSMENT: 1. Anemia with GI bleed: post transfusion. EGD today per GI 2. AFIB RVR with associated anemia. Rate better 3. Severe [place] 4. HTN: controlled 5. HLP 6. ZULMA vs CKD: much better 7. Chronic diastolic CHF: compensated PLAN: 1. We will stop his furosemide and lisinopril given his hypotension and the fact that he is only on a liquid diet 2. Plan for continuation of his diltiazem for rate control of his atrial fibrillation. Supportive care. Justicifation of Admission Dx: Justifications for Admission: Justification of Admission Dx: Yes KASSANDRA MORALES MD Feb 28, 2021 09:04
[2021-02-28] MEDS: TAMSULOSIN 0.4 MG CAP.ER.24H. PO SCH (09:14)
[2021-02-28] MEDS: GABAPENTIN 300 MG CAPSULE. PO SCH ×2 (09:14→19:57)
[2021-02-28] MEDS: CHOLECALCIFEROL (VITAMIN D3) 1,000 UNIT TABLET PO SCH (09:14)
[2021-02-28] MEDS: PANTOPRAZOLE 40 MG TABLET.DR. PO SCH ×2 (09:14→15:58)
--- NOTE | 2021-02-28 10:49 | PDOC ---
[facility] PROGRESS NOTE Date of Service DOS: DATE: 02/28/21 TIME: 10:38 Chief Complaint Chief Complaint GI bleed suspected upper, history of previous GI bleeds requiring actual bowel resection. HTN Hypothyroid, Anemia with GI bleed AFIB RVR - likely worsened by anemia. [place] HTN - controlled HLD ZULMA - likely vasomotor nephropathy, ay have some baseline CKD Likely chronic diastolic CHF in acute failure due to anemia and afib History of Present Illness History of Present Illness Mr Pickard is an 85yo w/ PMHx colon ca s/p resection, prostate ca, chronic afib, hypothyroidism, anxiety, hard of hearing who who presented to ED for fatigue weakness fall at home dark stools. With Hb 6.1 CR 1.7. Atrial fibrillation with RVR 02/26: Posttransfusion Hb 6 had several dark stools overnight another 2 units PRBC ordered heart rate is a little better controlled today. He overall notes that she has been feeling weak feels a little more energetic now. No chest pain little bit of shortness of breath with exertion. 02/27: Posttransfusion Hb 7.8. Had multiple maroon stools overnight did not sleep well. No shortness of breath or chest pain. Rate controlled A. fib on telemetry n.p.o. for EGD this afternoon. 02/28: No further BM. EGD with duodenal ulcer. Hb 7.1. Feels a little weak otherwise some rate controlled A. fib on telemetry tolerating clears well. He is requesting to go home advised to try to advance diet transfuse additional unit this drop in hemoglobin Vitals/I&O Vitals/I&O: Vital Signs Date Time Temp Pulse Resp B/P (MAP) Pulse Ox O2 Delivery O2 Flow Rate FiO2 02/28/21 09:14 91 111/55 02/28/21 08:00 Room Air 02/28/21 07:49 97.5 20 95 97.5 02/27/21 13:12 5 I & O 02/27/21 02/27/21 02/28/21 15:00 23:00 07:00 Intake Total 500 ml 840 ml 1090 ml Output Total 550 ml 250 ml Balance 500 ml 290 ml 840 ml Physical Exam General: Alert, Cooperative, No acute distress Heart: Other (AFIB, distant heart sounds) Lungs: Clear Abdomen: Soft, No tenderness Extremities: No cyanosis, Other (1+ bilateral LE pitting edema) Skin: No breakdown, Other (pale) Labs Labs: Laboratory Tests Test 02/28/21 04:00 White Blood Count 5.5 x10^3/uL (4.0-11.0) Red Blood Count 2.70 x10^6/uL (4.30-5.70) Hemoglobin 7.1 g/dL (13.0-17.5) Hematocrit 22.2 % (39.0-53.0) Mean Corpuscular Volume 82 fL (79-100) Mean Corpuscular Hemoglobin 26 pg (25-35) Mean Corpuscular Hemoglobin Concent 32 g/dL (31-37) Red Cell Distribution Width 18.6 % (11.5-14.5) Platelet Count 152 x10^3/uL (140-400) Assessment and Plan Assessmemt and Plan Problems Medical Problems: (1) Acute anemia Status: Acute (2) Atrial fibrillation with RVR Status: Acute (3) Lower GI bleed Status: Acute Comment Review of Relevant I have reviewed the following items juany (where applicable) has been applied. Medications: Current Medications Medications (Trade) Dose Ordered Sig/Peter Route PRN Reason Start Time Stop Time Status Last Admin Dose Admin Ringer's Solution 1,000 ml @ 75 mls/hr 1X ONCE IV 02/27/21 12:30 02/28/21 01:49 DC 02/27/21 12:30 Justifications for Admission Other Justification LIZETH MENDEZ MD Feb 28, 2021 10:49
[2021-02-28] MEDS: ATORVASTATIN CALCIUM 10 MG TABLET. PO SCH (19:57)
[2021-02-28] MEDS: ZOLPIDEM 5 MG TABLET. PO PRN (23:21)
[2021-03-01 03:43] VITALS: BP 134/63
[2021-03-01] MEDS: LEVOTHYROXINE 25 MCG TABLET. PO SCH (06:32)
[2021-03-01 07:40] VITALS: BP 152/78
[2021-03-01] MEDS: FINASTERIDE 5 MG TABLET. PO SCH (09:20)
[2021-03-01] MEDS: TAMSULOSIN 0.4 MG CAP.ER.24H. PO SCH (09:20)
[2021-03-01] MEDS: CHOLECALCIFEROL (VITAMIN D3) 1,000 UNIT TABLET PO SCH (09:21)
[2021-03-01] MEDS: PANTOPRAZOLE 40 MG TABLET.DR. PO SCH ×2 (09:21→17:30)
[2021-03-01] MEDS: GABAPENTIN 300 MG CAPSULE. PO SCH ×2 (09:21→21:44)
--- NOTE | 2021-03-01 09:49 | PDOC ---
[facility] PROGRESS NOTE Date of Service DOS: DATE: 03/01/21 TIME: 09:47 Chief Complaint Chief Complaint GI bleed suspected upper, history of previous GI bleeds requiring actual bowel resection. HTN Hypothyroid, Anemia with GI bleed AFIB RVR - likely worsened by anemia. [place] HTN - controlled HLD ZULMA - likely vasomotor nephropathy, ay have some baseline CKD Likely chronic diastolic CHF in acute failure due to anemia and afib History of Present Illness History of Present Illness Mr Pickard is an 85yo w/ PMHx colon ca s/p resection, prostate ca, chronic afib, hypothyroidism, anxiety, hard of hearing who who presented to ED for fatigue weakness fall at home dark stools. With Hb 6.1 CR 1.7. Atrial fibrillation with RVR 02/26: Posttransfusion Hb 6 had several dark stools overnight another 2 units PRBC ordered heart rate is a little better controlled today. He overall notes that she has been feeling weak feels a little more energetic now. No chest pain little bit of shortness of breath with exertion. 02/27: Posttransfusion Hb 7.8. Had multiple maroon stools overnight did not sleep well. No shortness of breath or chest pain. Rate controlled A. fib on telemetry n.p.o. for EGD this afternoon. 02/28: EGD 02/27 with duodenal ulcer. Hb 7.1. Feels a little weak otherwise some rate controlled A. fib on telemetry tolerating clears well. Transfused for further lower GI bleeding today 03/01: Hemogram pending. No further bowel movements overnight. Advance to full liquids. Still with slow A. fib Vitals/I&O Vitals/I&O: Vital Signs Date Time Temp Pulse Resp B/P (MAP) Pulse Ox O2 Delivery O2 Flow Rate FiO2 03/01/21 09:20 82 152/78 03/01/21 08:00 Room Air 03/01/21 07:40 98.2 16 99 98.2 I & O 02/28/21 02/28/21 03/01/21 15:00 23:00 07:00 Intake Total 20 ml 300 ml Output Total 300 ml 450 ml Balance 20 ml -300 ml -150 ml Physical Exam General: Alert, Cooperative, No acute distress Heart: Other (AFIB, distant heart sounds) Lungs: Clear Abdomen: Soft, No tenderness Extremities: No cyanosis, Other (1+ bilateral LE pitting edema) Skin: No breakdown, Other (pale) Assessment and Plan Assessmemt and Plan Problems Medical Problems: (1) Acute anemia Status: Acute (2) Atrial fibrillation with RVR Status: Acute (3) Lower GI bleed Status: Acute Comment Review of Relevant I have reviewed the following items juany (where applicable) has been applied. Justifications for Admission Other Justification LIZETH MENDEZ MD Mar 01, 2021 09:49
[2021-03-01 10:37] LABS: HEMATOCRIT 25.9 % (39.0-53.0); HEMOGLOBIN 8.3 g/dL (13.0-17.5); RED BLOOD COUNT 3.11 x10^6/uL (4.30-5.70); RED CELL DISTRIBUTION WIDTH 18.4 % (11.5-14.5); WHITE BLOOD COUNT 5.2 x10^3/uL (4.0-11.0)
[2021-03-01 11:03] VITALS: BP 142/85
[2021-03-01 15:00] VITALS: BP 135/69
--- NOTE | 2021-03-01 15:38 | PDOC ---
CARDIOLOGY PROGRESS NOTE OBJECTIVE: Vital Signs/I&O: Vital Signs Date Time Temp Pulse Resp B/P (MAP) Pulse Ox O2 Delivery O2 Flow Rate FiO2 03/01/21 11:03 98.0 89 16 142/85 (104) 98 Room Air 98.0 I & O 02/28/21 02/28/21 03/01/21 15:00 23:00 07:00 Intake Total 20 ml 300 ml Output Total 300 ml 450 ml Balance 20 ml -300 ml -150 ml DIAGNOSTIC TESTING: Labs: Laboratory Tests 03/01/21 10:20 Laboratory Tests Test 03/01/21 10:20 White Blood Count 5.2 x10^3/uL (4.0-11.0) Red Blood Count 3.11 x10^6/uL (4.30-5.70) L Hemoglobin 8.3 g/dL (13.0-17.5) L Hematocrit 25.9 % (39.0-53.0) L Mean Corpuscular Volume 83 fL (79-100) Mean Corpuscular Hemoglobin 27 pg (25-35) Mean Corpuscular Hemoglobin Concent 32 g/dL (31-37) Red Cell Distribution Width 18.4 % (11.5-14.5) H Platelet Count 166 x10^3/uL (140-400) ASSESSMENT: Objective: The patient appeared well nourished and normally developed. Head exam is unremarkable. No scleral icterus or corneal arcus noted. Neck is without jugular venous distension, thyromegaly, or carotid bruits. Carotid upstrokes are brisk bilaterally. Lungs are clear to auscultation and percussion. Cardiac exam reveals the PMI to be normally sized and situated. Rhythm is regular. First and second heart sounds normal. No murmurs, rubs or gallops. Abdominal exam reveals normal bowel sounds, no masses, no organomegaly and no aortic enlargement. Extremities are nonedematous and both femoral and pedal pulses are normal. Msk: No traumua Neuro: No focal deficits CURRENT MEDICATIONS: Diltiazem 120 mg daily DIAGNOSTIC TESTING: Labs: Laboratory studies reviewed ASSESSMENT: 1. Anemia with GI bleed: post transfusion. EGD today per GI 2. AFIB RVR with associated anemia. Rate better 3. Severe [place] 4. HTN: controlled 5. HLP 6. ZULMA vs CKD: much better 7. Chronic diastolic CHF: compensated PLAN: 1. Continue current medical therapy. He remains in house to monitor for GIB. Ok to hold anticoagulation given his anemia issues. Outpt referral for watchman device. Doing well on Diltiazem. Supportive care. Justicifation of Admission Dx: Justifications for Admission: Justification of Admission Dx: Yes KASSANDRA MORALES MD Mar 01, 2021 15:38
[2021-03-01 19:00] VITALS: BP 131/74
[2021-03-01] MEDS: ATORVASTATIN CALCIUM 10 MG TABLET. PO SCH (21:46)
[2021-03-01 23:00] VITALS: BP 145/82
[2021-03-02 03:00] VITALS: BP 109/89
[2021-03-02 07:00] VITALS: BP 139/76
[2021-03-02] MEDS: LEVOTHYROXINE 25 MCG TABLET. PO SCH (07:23)
--- NOTE | 2021-03-02 07:26 | NUR ---
Pt states missing one of his cards from his wallet. Called [facility] since pt was transferred from that floor however nothing known at this time. Pt states the nurse that comes to see him at home may have his card however he is unsure at this time. Pt informed if she does not then we can report it to security. Day shift has been notified.
[2021-03-02] MEDS: FINASTERIDE 5 MG TABLET. PO SCH (08:43)
[2021-03-02] MEDS: CHOLECALCIFEROL (VITAMIN D3) 1,000 UNIT TABLET PO SCH (08:43)
[2021-03-02] MEDS: PANTOPRAZOLE 40 MG TABLET.DR. PO SCH (08:44)
[2021-03-02] MEDS: TAMSULOSIN 0.4 MG CAP.ER.24H. PO SCH (08:44)
[2021-03-02] MEDS: GABAPENTIN 300 MG CAPSULE. PO SCH (08:44)
--- NOTE | 2021-03-02 10:26 | PDOC ---
Date of Service: DATE: 03/02/21 TIME: 10:21 Objective: Objective: No bleeding per nurse, no stools in a couple days. Vital Signs: Vital Signs Date Time Temp Pulse Resp B/P (MAP) Pulse Ox O2 Delivery O2 Flow Rate FiO2 03/02/21 08:46 95 139/76 03/02/21 08:00 Room Air 03/02/21 07:00 98.0 18 97 98.0 Labs: BLOOD CULTURE Final NO GROWTH AFTER 5 DAYS Imaging: EGD 02/27/21 Findings: E--Some irregularity of z-line c/w some degree of reflux, not erosive. G--some prepyloric erosions, otherwise normal. D--8mm ulcer in apex of bulb with clean base, otherwise normal to second portion. --no biopsies for H.pylori as negative per [facility] records in the past. --location of ulcer suggests may be NSAID-induced lesion. Beatriz. well. IMP: DU GERD REC: PO PPI. Continue clears over the weekend and monitor for further bleeding. If further bloody stools consider nuclear bleeding scan. If no bleeding, advance diet.- PE: out of room A/P: Melena/hematochezia - resolved ALICIA - better/stable, last transfusion 02/28 (4 units pRBCs total) GERD, DU (?NSAID-related) - on PPI BID A Fib, CKD H/o colon cancer s/p resection COVID negative -- Out of room for echocardiogram when I stopped by - will follow-up later today. Continue PPI, ADAT. Justicifation of Admission Dx: Justifications for Admission: Justification of Admission Dx: Yes SHERRI PLASCENCIA Mar 02, 2021 10:26
--- NOTE | 2021-03-02 10:52 | NUR ---
SW following. Chart reviewed, discussed with Dr. Gr - pt from home, room air, GI soft, FLU and COVID-19 negative. Echo this morning, possible discharge if tolerates diet. No SW needs identified at this time. SW will continue to follow.
[2021-03-02 11:00] VITALS: BP 135/84
--- NOTE | 2021-03-02 11:34 | PDOC ---
STEPHAN VAZQUEZ APRN 03/02/21 1134: CARDIO Progress Notes Date and Time Date of Service 03/02/21 Time of Evaluation 1130 Subjective Subjective: No Chest Pain, No shortness of breath, No Palpitations Vitals Vitals Vital Signs Date Time Temp Pulse Resp B/P (MAP) Pulse Ox O2 Delivery O2 Flow Rate FiO2 03/02/21 08:46 95 139/76 03/02/21 08:00 Room Air 03/02/21 07:00 98.0 18 97 98.0 Weight Weight [ ] Input and Output Intake and Output Intake and Output 03/02/21 07:00 Intake Total 1340 ml Output Total 500 ml Balance 840 ml Intake Oral 1340 ml Output Urine Total 500 ml # Voids 2 Microbiology Micro Microbiology 02/25/21 Blood Culture - Final, Complete NO GROWTH AFTER 5 DAYS Physical Exam HEENT: Neck Supple W Full Motion, Other ([place]) Chest: Symmetric LUNGS: Other (diminished bases) Heart: irregularly irregular (AFIB- rate controlled ) Abdomen: Soft N/T Extremities: No Calf Tenderness Neurology: alert, oriented, follow commands Assessment Assessment 1. Anemia with GI bleed: s/p transfusion. EGD with GERD, DU 2. AFIB RVR with associated anemia. Rate now controlled 3. Severe [place] 4. HTN: controlled 5. HLP 6. ZULMA; resolved 7. Chronic diastolic CHF: compensated Recommendations Continue Cardizem for rate control No ASA, OAC given anemia, DU Continue PPI Outpatient referral for LAAO device Follow up with [place] cardiology upon discharge Justicifation of Admission Dx: Justifications for Admission: Justification of Admission Dx: Yes JORDY HANSON MD 03/03/21 0941: CARDIO Progress Notes Assessment Assessment Patient seen and examined 03/02/2020. Agree with ADVICE NURSE's assessment and plan. Atrial fibrillation rate better controlled with cardizem He is probably a poor candidate for snf anticoagulation Plan outpatient referral for left atrial appendage closure Continue management of anemia/GIB per GI team STEPHAN VAZQUEZ APRN Mar 02, 2021 11:34 JORDY HANSON MD Mar 03, 2021 09:41
[2021-03-02] MEDS ORDERED: ATOR10TA60 PO (12:54)
--- NOTE | 2021-03-02 12:56 | DISCH ---
DISCHARGE INSTRUCTIONS Condition on Discharge Condition on Discharge: Stable Activity After Discharge Activity Instructions for Disc: Activity as tolerated Driving Instructions after Dis: Do not drive today Weight Bearing Status after Di: No restrictions Diet after Discharge Diet after Discharge: Cardiac Follow-Up Follow up with: PCP within 2 weeks of discharge Follow Up With: Gastroenterology and cardiology as scheduled LEXY NUGENT MD Mar 02, 2021 12:56
[2021-03-02 15:00] VITALS: BP 142/85
--- NOTE | 2021-03-02 16:15 | NUR ---
Patient IV and telemonitor discontinued by Waleska POOLE. Patient wheeled out by Yassine POOLE and Krysta, homemaking rehabilitation consultant, taking patient home. Independent Living. Education given to best of ability.
--- NOTE | 2021-03-09 13:19 | PDOC3 ---
[facility]-Discharge Summary Date of Admission: Date of Admission: Feb 25, 2021 Date of Discharge: Date of Discharge: Mar 02, 2021 Discharge Diagnosis: Discharge Diagnosis: GI bleed suspected upper, history of previous GI bleeds requiring actual bowel resection. HTN Hypothyroid, Anemia with GI bleed AFIB RVR - likely worsened by anemia. [place] HTN - controlled HLD ZULMA - likely vasomotor nephropathy, ay have some baseline CKD Likely chronic diastolic CHF in acute failure due to anemia and afib Consults: Consults: per GI: Patient seen. Note plans for discharge. Would keep on PPI indefinitely. per cardiology: Assessment 1. Anemia with GI bleed: s/p transfusion. EGD with GERD, DU 2. AFIB RVR with associated anemia. Rate now controlled 3. Severe [place] 4. HTN: controlled 5. HLP 6. ZULMA; resolved 7. Chronic diastolic CHF: compensated Recommendations Continue Cardizem for rate control No ASA, OAC given anemia, DU Continue PPI Outpatient referral for LAAO device Follow up with [place] cardiology upon discharge Justicifation of Admission Dx: Justifications for Admission: Justification of Admission Dx: Yes JORDY HANSON MD 03/03/21 0941: CARDIO Progress Notes Assessment Assessment Patient seen and examined 03/02/2020. Agree with DIRECTOR DRUG's assessment and plan. 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 With Hb 6.1 CR 1.7. Atrial fibrillation with RVR 02/26: Posttransfusion Hb 6 had several dark stools overnight another 2 units PRBC ordered heart rate is a little better controlled today. He overall notes that she has been feeling weak feels a little more energetic now. No chest pain little bit of shortness of breath with exertion. 02/27: Posttransfusion Hb 7.8. Had multiple maroon stools overnight did not sleep well. No shortness of breath or chest pain. Rate controlled A. fib on telemetry n.p.o. for EGD this afternoon. 02/28: EGD 02/27 with duodenal ulcer. Hb 7.1. Feels a little weak otherwise some rate controlled A. fib on telemetry tolerating clears well. Transfused for further lower GI bleeding today 03/01: Hemogram pending. No further bowel movements overnight. Advance to full liquids. Still with slow A. fib Patient clinically stable by day of discharge. Hemoglobin stable at 8.3. Rest of hospital course was uneventful. Patient tolerated diet by distal time of discharge. Disposition: Disposition/Orders: D/C to Home Activity: Activity: Resume previous activity Diet: Diet: Soft Medications: Home Meds Active Scripts Atorvastatin Calcium (ATORVASTATIN CALCIUM) 10 Mg Tablet, 5 MG PO QHS for cholesterol for 30 Days, #15 TAB 2 Refills Prov:LEXY NUGENT MD 03/02/21 Thiamine Hcl (VITAMIN B-1) 100 Mg Tablet, 100 MG PO DAILY, #30 TAB-CAP Prov:OG SORENSEN MD 03/22/16 Levothyroxine Sodium (SYNTHROID) 25 Mcg Tablet, 25 MCG PO DAILY07, #30 TAB-CAP Prov:OG SORENSEN MD 03/22/16 Diltiazem Hcl (DILTIAZEM 24HR CD) 120 Mg Cap.er.24h, 120 MG PO DAILY, #30 TAB- CAP Prov:OG SORENSEN MD 03/22/16 Reported Medications Omeprazole (OMEPRAZOLE) 20 Mg Capsule.dr, 1 CAP PO DAILY for acid, #30 CAP 5 Refills 02/27/21 [place]-3/Dha/Epa/Fish Oil (FISH OIL 1,000 MG SOFTGEL) 1 Each Capsule, 1 CAP PO BID for supplement for 30 Days, #60 CAP 0 Refills 02/27/21 Tramadol Hcl (TRAMADOL HCL) 50 Mg Tablet, 50 MG PO PRN Q8HRS PRN for PAIN, TAB 03/18/16 Tamsulosin Hcl (TAMSULOSIN HCL) 0.4 Mg Cap.er.24h, 0.4 MG PO DAILY, TAB 03/18/16 Ketoconazole (KETOCONAZOLE) 15 Gm Cream..g., 1 BLAINE TP BID, #60 GM 1 Refill 03/18/16 Gabapentin (GABAPENTIN ) 300 Mg Capsule, 300 MG PO BID, CAP 03/18/16 Finasteride (FINASTERIDE) 5 Mg Tablet, 5 MG PO DAILY, TAB 2/9/17 Cholecalciferol (Vitamin D3) (VITAMIN D3) 1,000 Unit Tablet, 3 TAB PO DAILY, #90 TAB 3 Refills 03/18/16 Carboxymethylcellulos/Glycerin (REFRESH OPTIVE EYE DROPS) 15 Ml Drops, 1 DROP EACHEYE PRN QID PRN for dry eyes, #15 ML 3 Refills 03/18/16 Acetaminophen (ACETAMINOPHEN) 500 Mg Tablet, 2 TAB PO PRN Q8HRS PRN for PAIN, #60 TAB 03/18/16 Discontinued Reported Medications Pravastatin Sodium (PRAVASTATIN SODIUM) 40 Mg Tablet, 1 TAB PO QHS for cholesterol, #90 TAB 1 Refill 02/27/21 Gabapentin (GABAPENTIN) 300 Mg Capsule, 300 MG PO TID for NEUROGENIC PAIN, CAP 02/27/21 Atenolol (ATENOLOL) 50 Mg Tablet, 1 TAB PO BID for HR, #30 TAB 5 Refills 02/27/21 Aspirin (ASPIRIN) 325 Mg Tablet, 1 TAB PO DAILY for prevent clots, #30 TAB 5 Refills 02/27/21 Quinine Sulfate (QUININE SULFATE) 324 Mg Capsule, 324 MG PO 03/18/16 Pravastatin Sodium (PRAVASTATIN SODIUM) 20 Mg Tablet, 1 TAB PO QHS, #90 TAB 1 Refill 03/18/16 Omeprazole (OMEPRAZOLE) 40 Mg Capsule.dr, 40 MG PO DAILY, CAP 03/18/16 Furosemide (FUROSEMIDE) 20 Mg Tablet, 20 MG PO DAILY, TAB 03/18/16 Fosinopril Sodium (FOSINOPRIL SODIUM) 10 Mg Tablet, 5 MG PO DAILY 03/18/16 [place]-3 Fatty Acids/Fish Oil (FISH OIL 1,000 MG CAPSULE) 1 Each Capsule, 1 EACH PO BID 03/18/16 Discontinued Scripts Warfarin Sodium (COUMADIN) 7.5 Mg Tablet, 5 MG PO DAILY16, #30 TAB-CAP Prov:OG SORENSEN MD 03/22/16 Scheduled Atorvastatin Calcium (Atorvastatin Calcium), 5 MG PO QHS Cholecalciferol (Vitamin D3) (Vitamin D3), 3 TAB PO DAILY, (Reported) Diltiazem Hcl (Diltiazem 24HR Cd), 120 MG PO DAILY Finasteride (Finasteride), 5 MG PO DAILY, (Reported) Gabapentin (Gabapentin ), 300 MG PO BID, (Reported) Ketoconazole (Ketoconazole), 1 BLAINE TP BID, (Reported) Levothyroxine Sodium (Synthroid), 25 MCG PO DAILY07 [place]-3/Dha/Epa/Fish Oil (Fish Oil 1,000 Mg Softgel), 1 CAP PO BID, (Reported) Omeprazole (Omeprazole), 1 CAP PO DAILY, (Reported) Tamsulosin Hcl (Tamsulosin Hcl), 0.4 MG PO DAILY, (Reported) Thiamine Hcl (Vitamin B-1), 100 MG PO DAILY Scheduled PRN Acetaminophen (Acetaminophen), 2 TAB PO PRN Q8HRS PRN for PAIN, (Reported) Carboxymethylcellulos/Glycerin (Refresh Optive Eye Drops), 1 DROP EACHEYE PRN QID PRN for dry eyes, (Reported) Tramadol Hcl (Tramadol Hcl), 50 MG PO PRN Q8HRS PRN for PAIN, (Reported) Discontinued Medications Aspirin (Aspirin), 1 TAB PO DAILY, (Reported) Atenolol (Atenolol), 1 TAB PO BID, (Reported) Fosinopril Sodium (Fosinopril Sodium), 5 MG PO DAILY, (Reported) Furosemide (Furosemide), 20 MG PO DAILY, (Reported) Gabapentin (Gabapentin), 300 MG PO TID, (Reported) [place]-3 Fatty Acids/Fish Oil (Fish Oil 1,000 Mg Capsule), 1 EACH PO BID, (Reported) Omeprazole (Omeprazole), 40 MG PO DAILY, (Reported) Pravastatin Sodium (Pravastatin Sodium), 1 TAB PO QHS, (Reported) Pravastatin Sodium (Pravastatin Sodium), 1 TAB PO QHS, (Reported) Quinine Sulfate (Quinine Sulfate), 324 MG PO, (Reported) Warfarin Sodium (Coumadin), 5 MG PO DAILY16 Total Time: Total Time: Total time spent was 34 minutes in preparing scripts, discharge planning with SWI and RN and preparing this discharge summary Patient seen and examined on day of discharge. No acute abnormal findings. Justicifation of Admission Dx: Justifications for Admission: Justification of Admission Dx: Yes LEXY NUGENT MD Mar 09, 2021 13:19
== END 2021-03-02 16:15 | disposition home or self-care (01) | DRG 377 ==
LOC: ER 09:27 → ED HOLD 11:30 → 5 SOUTH 13:49 → 6 SOUTH 13:49 → 5 SOUTH 03-01 13:14
PROVIDERS: ADMIT Student in an Organized Health Care Education/Training Program; ATTEND Student in an Organized Health Care Education/Training Program
PROC: 30233N1 Transfusion of Nonautologous Red Blood Cells into Peripheral Vein, Percutaneous Approach (ICD-10-PCS; principal; 2021-02-25)
PROC: 0DJ08ZZ Inspection of Upper Intestinal Tract, Via Natural or Artificial Opening Endoscopic (ICD-10-PCS; 2021-02-27)
DX: K26.4 Chronic or unspecified duodenal ulcer with hemorrhage (principal); N17.0 Acute kidney failure with tubular necrosis; I13.0 Hypertensive heart and chronic kidney disease with heart failure and stage 1 through stage 4 chronic kidney disease, or unspecified chronic kidney disease; I48.20 Chronic atrial fibrillation, unspecified; I50.32 Chronic diastolic (congestive) heart failure; K21.9 Gastro-esophageal reflux disease without esophagitis; K25.4 Chronic or unspecified gastric ulcer with hemorrhage; E03.9 Hypothyroidism, unspecified; E78.5 Hyperlipidemia, unspecified; F41.9 Anxiety disorder, unspecified; G43.909 Migraine, unspecified, not intractable, without status migrainosus; M19.011 Primary osteoarthritis, right shoulder; M19.012 Primary osteoarthritis, left shoulder; N18.9 Chronic kidney disease, unspecified; N28.1 Cyst of kidney, acquired; Z20.822 Contact with and (suspected) exposure to COVID-19; Z79.01 Long term (current) use of anticoagulants; Z85.038 Personal history of other malignant neoplasm of large intestine; Z90.49 Acquired absence of other specified parts of digestive tract; I95.9 Hypotension, unspecified
CPT/HCPCS: 36415; 36430; 43235; 71045; 74177; 80048; 80053; 81001; 82274; 83540; 83550; 83690; 83735; 83880; 84100; 84484; 85025; 85027; 85384; 85610; 85730; 86850; 86900; 86901; 86920; 87040; 87428; 93005; 93306; 96361; 96374; C9113; J1940; J3490; J7030; J7120; P9016; Q9967; U0003; U0005; 99285-25; C8929; G0378